=== PATIENT | female | born 1945 | race Caucasian/White ===

== ENCOUNTER 2020-08-15 08:09 | Inpatient (IN) | payer MEDICARE ==
[~2020-08-15] VITALS: Ht 167.6 cm; Wt 86.6 kg
[2020-08-15] VITALS (15 sets, daily range): BP systolic 97–131; BP diastolic 49–82
[~2020-08-15 08:09] MED LIST: AMLO2.5T4 PO; ASPI-1169 PO; AZEL6DRO5 EACHEYE; BACL10TA PO; BENA40TA8 PO; BRIN10DR EACHEYE; DIPH25CA51 PO; DOCU-270 PO; FAMO40TA7 PO; GABA-532 PO; GAMMAGARD IV; LATA2.5D15 EACHEYE; LEVO500T23 PO; MELO-107 PO; METO25TA4 PO; OXYC-128 PO; SENN-261 PO; TEMA15CA PO; TIMO10DR19 EACHEYE; TRAM50TA2 PO
--- NOTE | 2020-08-15 08:15 | NUR ---
PT MIKAEL, FROM [facility] C/O SOB, UPON ARRIVAL, 95% ON 15LPM VIA NRB. IV ACCESS STARTED. BLOOD DRAW DONE. URINE COLLECTED. SENT TO LAB
[2020-08-15 08:27] LABS: ABG BASE EXCESS 7.7 mmol/L; ABG OXYGEN SATURATION 85.7 % (92.0-98.5); ABG PCO2 53.1 mmHg (35.0-45.0); ABG PH 7.421 (7.350-7.450); ABG PO2 52.4 mmHg (75.0-100.0); AaDO2 607.5 mmHg; COHb 1.4 % (0.5-1.5); MetHb 0.3 % (0.0-1.5); O2Hb 84.2 % (94.0-97.0); SITE, ABG Right Radial; VENT MODE, BG NB 100%
[2020-08-15] MEDS ORDERED: ALBUTEROL FS 2.5 MG/3 ML VIAL.NEB ONE (08:30)
[2020-08-15] MEDS ORDERED: IPRATROPIUM NEB FS 0.5 MG/2.5 ML AMPUL.NEB ONE (08:30)
[2020-08-15] MEDS ORDERED: methylPREDNISolone SOD SUCC 125 MG/2ML VIAL ONE (08:46)
[2020-08-15] MEDS ORDERED: LORAZEPAM INJ 2 MG/ML VIAL ONE ×2 (08:47→11:49)
[2020-08-15 08:54] LABS: BASOPHILS % (AUTO) 0.1 % (0.0-2.0); HEMATOCRIT 39 % (33-45); HEMOGLOBIN 12.9 g/dL (11.5-14.8); LYMPHOCYTES # (AUTO) 0.7 /CMM (0.8-4.8); LYMPHOCYTES % (AUTO) 7.3 % (20.0-44.0); MEAN CORPUSCULAR HGB CONC 33 g/dl (31.0-36.0); MEAN CORPUSCULAR VOLUME 95 fL (82-100); MONOCYTES # (AUTO) 0.6 /CMM (0.1-1.30); MONOCYTES % (AUTO) 6.2 % (2.0-12.0); NEUTROPHILS # (AUTO) 8.5 /CMM (1.8-8.9); NEUTROPHILS % (AUTO) 86.4 % (43.0-81.0); PLATELET COUNT (AUTO) 217 /CMM (150-450); RED BLOOD CELL COUNT(AUTO) 4.06 MIL/uL (4.0-5.2); WHITE BLOOD COUNT (AUTO) 9.8 K/uL (4.3-11.0)
--- NOTE | 2020-08-15 08:55 | NUR ---
DILCIA MALONEY. WAITING FOR CALL BACK.
[2020-08-15] MEDS ORDERED: LORAZEPAM INJ 2 MG/ML VIAL IV ONE ×2 (09:00→12:00)
[2020-08-15] MEDS ORDERED: methylPREDNISolone SOD SUCC 125 MG/2ML VIAL IV ONE (09:00)
[2020-08-15] MEDS ORDERED: IPRATROPIUM NEB FS 0.5 MG/2.5 ML AMPUL.NEB NEB ONE (09:00)
[2020-08-15] MEDS ORDERED: ALBUTEROL FS 2.5 MG/3 ML VIAL.NEB NEB ONE (09:00)
[2020-08-15 09:31] LABS: BILIRUBIN,URINE NEGATIVE (NEGATIVE); COLOR,URINE YELLOW (YELLOW); LEUKOCYTE ESTERASE ,URINE SMALL (NEGATIVE); NITRITE, URINE NEGATIVE (NEGATIVE); PROTEIN,URINE NEGATIVE (NEGATIVE); UGLUCOSE NEGATIVE (NEGATIVE); UROBILINOGEN,URINE 0.2 EU/dL (0.2)
[2020-08-15] MEDS ORDERED: BISA10SU11 RC (09:32)
[2020-08-15] MEDS ORDERED: LACT10SO PO (09:32)
[2020-08-15] MEDS ORDERED: THIA100T88 PO (09:32)
[2020-08-15] MEDS ORDERED: DICY10CA13 PO (09:32)
[2020-08-15] MEDS ORDERED: MAGN400T26 PO (09:32)
[2020-08-15] MEDS ORDERED: METO25TA6 PO (09:32)
[2020-08-15] MEDS ORDERED: VITA1TAB56 PO (09:32)
[2020-08-15] MEDS ORDERED: NA P133E RC (09:32)
[2020-08-15] MEDS ORDERED: ACET-868 PO (09:32)
[2020-08-15] MEDS ORDERED: MELA3TAB41 PO (09:32)
[2020-08-15] MEDS ORDERED: CLON0.1T PO (09:32)
[2020-08-15] MEDS ORDERED: FOLI0.4T2 PO (09:32)
[2020-08-15] MEDS ORDERED: MAGN400O6 PO (09:32)
[2020-08-15] MEDS ORDERED: POTA20PA3 PO (09:32)
[2020-08-15] MEDS ORDERED: LEVE500T9 PO (09:32)
[2020-08-15] MEDS ORDERED: AMIN30LI2 PO (09:32)
[2020-08-15] MEDS ORDERED: POLY17PO4 PO (09:32)
[2020-08-15] MEDS ORDERED: APIX5TAB PO (09:32)
[2020-08-15] MEDS ORDERED: [UNRECOGNIZED DRUG - CODE] TD (09:32)
[2020-08-15] MEDS ORDERED: MULT-447 PO (09:32)
[2020-08-15] MEDS ORDERED: ASCO-352 PO (09:32)
[2020-08-15] MEDS ORDERED: DILT30TA14 PO (09:32)
[2020-08-15] MEDS ORDERED: ZINC1CAP2 PO (09:32)
[2020-08-15] MEDS ORDERED: POLY15DR40 EACHEYE (09:32)
[2020-08-15] MEDS ORDERED: BUDE10.2 IH (09:32)
[2020-08-15] MEDS ORDERED: LANS30CA56 PO (09:32)
[2020-08-15] MEDS ORDERED: PRED10TA23 PO (09:35)
[2020-08-15 09:44] LABS: D-DIMER 2.1 mg/L(FEU (0.17-0.50)
[2020-08-15 09:53] LABS: CALCIUM, SERUM 10.3 mg/dL (8.5-10.1); CARBON DIOXIDE 38 mmol/L (21-32); CHLORIDE 97 mmol/L (98-107); CREATININE 1.2 mg/dL (0.6-1.3); GLUCOSE 100 mg/dL (74-106); POTASSIUM 3.5 mmol/L (3.5-5.1); SODIUM SERUM 139 mmol/L (136-145); UREA NITROGEN, BLOOD 22 mg/dL (7-18)
[2020-08-15 10:06] LABS: ALANINE AMINOTRANSFERASE 18 U/L (12-78); ALBUMIN 2.5 g/dL (3.4-5.0); ALKALINE PHOSPHATASE 94 U/L (46-116); ASPARTATE AMINOTRANSFERASE 41 U/L (15-37); B-TYPE NATRIURETIC PEPTIDE 5952 PG/ML (0-125); BILIRUBIN,TOTAL 1.2 mg/dL (0.2-1.0); TOTAL PROTEIN, SERUM 8.4 g/dL (6.4-8.2)
--- NOTE | 2020-08-15 10:12 | NUR ---
CALLED [phone] FOR LATEST COVID TEST NO ANSWER.
--- NOTE | 2020-08-15 10:30 | NUR ---
influenza swab done sent to lab
[2020-08-15 10:44] LABS: BACTERIA,URINE Moderate /HPF (None Seen); RBC,URINE 0-3 /HPF (0-2); SQUAMOUS EPITHELIAL CELL,UR Moderate /HPF (None Seen)
[2020-08-15 10:52] LABS: CREATINE KINASE, TOTAL 15 U/L (26-192); FERRITIN 287 ng/mL (8-388)
[2020-08-15] MEDS ORDERED: ACETAMINOPHEN 325 MG TABLET PO PRN ×2 (11:00)
[2020-08-15] MEDS ORDERED: CEFTRIAXONE 1GM BAG (ER ONLY) 1 GM/50 ML PIGGYBACK IV ONE (11:00)
[2020-08-15] MEDS ORDERED: NA PHOS,M-B/NA PHOS,DI-BA 1 EA ENEMA RC PRN (11:00)
[2020-08-15] MEDS ORDERED: CLONIDINE HCL 0.1 MG TABLET PO PRN (11:00)
[2020-08-15] MEDS ORDERED: ZOLPIDEM TARTRATE 5 MG TABLET PO PRN (11:00)
[2020-08-15] MEDS ORDERED: MAGNESIUM HYDROXIDE 30 ML UDC PO PRN ×2 (11:00)
[2020-08-15] MEDS ORDERED: BISACODYL SUPP (10 MG) 10 MG/SUPP.RECT SUPP.RECT RC PRN (11:00)
[2020-08-15] MEDS ORDERED: HYDROCODONE/APAP 5/325MG TABLET PO PRN ×2 (11:00→15:30)
[2020-08-15] MEDS ORDERED: MAG HYDROX/AL HYDROX/SIMETH 30 ML UDC PO PRN (11:00)
[2020-08-15] MEDS ORDERED: CEFTRIAXONE 1 G in IV D5W 50 ML IV ONE (11:00)
[2020-08-15] MEDS ORDERED: BACLOFEN (10 MG) 10 MG TABLET PO PRN (11:00)
[2020-08-15] MEDS ORDERED: AZITHROMYCIN 500 MG in IV D5W 250 ML IV ONE (11:00)
[2020-08-15] MEDS ORDERED: CEFTRIAXONE 2 G in IV D5W 100 ML IV ONE (11:00)
[2020-08-15] MEDS ORDERED: Medication Not On Formulary EA (Melatonin 3 MG) PO PRN (11:00)
[2020-08-15] MEDS ORDERED: ONDANSETRON HCL/PF 4 MG/2 ML VIAL IVP PRN (11:00)
[2020-08-15] MEDS ORDERED: TRAMADOL HCL 50 MG TABLET PO PRN (11:00)
[2020-08-15] MEDS ORDERED: POLYETHYLENE GLYCOL 3350 17 GM POWD.PACK PO PRN (11:00)
[2020-08-15 11:18] LABS: C-REACTIVE PROTEIN 4.5 mg/dL (0.0-0.9)
[2020-08-15] MEDS ORDERED: PROPOFOL 100 ML ONE (12:54)
[2020-08-15] MEDS ORDERED: SUCCINYLCHOLINE CHLORIDE 20 MG/ML VIAL IV ONE ×2 (13:00→15:00)
[2020-08-15] MEDS ORDERED: ETOMIDATE 2 MG/ML VIAL IV ONE ×2 (13:00→15:00)
--- NOTE | 2020-08-15 13:14 | NUR ---
pt prepared for intubation. vs checked. (see vs record). rt, md and primary rn in the room.
--- NOTE | 2020-08-15 13:17 | NUR ---
s/p intubation. md intubated pt successfully. breath sounds auscultated. no abd gurgling.
[2020-08-15] MEDS: PROPOFOL 10MG/ML 50ML 50 ML IV PRN ×3 (13:30→23:31)
[2020-08-15 14:24] LABS: ABG BASE EXCESS 8.9 mmol/L; ABG OXYGEN SATURATION 71.5 % (92.0-98.5); ABG PH 7.411 (7.350-7.450); ABG PO2 39.9 mmHg (75.0-100.0); AaDO2 616.1 mmHg; COHb 1.1 % (0.5-1.5); MetHb 0.3 % (0.0-1.5); O2Hb 70.5 % (94.0-97.0); SITE, ABG Right Radial; VENT MODE, BG HFNC 60L 100%
[2020-08-15] MEDS ORDERED: ETOMIDATE 2 MG/ML VIAL ONE (14:35)
[2020-08-15] MEDS ORDERED: SUCCINYLCHOLINE CHLORIDE 20 MG/ML VIAL ONE (14:35)
[2020-08-15 14:57] LABS: ABG BASE EXCESS 10.9 mmol/L; ABG OXYGEN SATURATION 94.2 % (92.0-98.5); ABG PCO2 52.1 mmHg (35.0-45.0); ABG PO2 74.6 mmHg (75.0-100.0); AaDO2 586.3 mmHg; COHb 0.5 % (0.5-1.5); MetHb 0.4 % (0.0-1.5); O2Hb 93.4 % (94.0-97.0); SITE, ABG Right Radial; VENT MODE, BG AC 20 450 100 +8
--- NOTE | 2020-08-15 15:00 | NUR ---
RT Pt intubated in ER bed 3. Pt intubated via 7.5 ETT @ 23cm lip line. Bilateral breath sounds noted. Pt placed on AC 20, 450, 100%, +8 per Jeremy [place]. ABG done and given to Dr. Luna-no changes were made. No Respiratory distress noted at this time. SX DONE. Alarms are set and audible. Vent plugged into red outlet. Ambu bag at bedside
--- NOTE | 2020-08-15 15:20 | NUR ---
REPORT GIVEN TO SAMIRA MIRANDA AT ICU. PT TO GO TO 261
[2020-08-15] MEDS ORDERED: POLYVINYL ALCOHOL 15 ML BOTTLE EACHEYE PRN (15:30)
[2020-08-15 15:38] LABS: BILIRUBIN,DIRECT 0.5 mg/dL (0.0-0.2)
--- NOTE | 2020-08-15 15:42 | NUR ---
pt transferred to icu
[2020-08-15] MEDS ORDERED: REMDESIVIR (CHARGED) 200 MG, *LOADING DOSE 1 EA in IV NS 0.9% 210 ML IV ONE (16:00)
--- NOTE | 2020-08-15 16:00 | NUR ---
ICU/RN PT IS ADMITTED FROM ER,FROM SNF.INTUBATED ON THE VENT AC MODE,FIO2-100%,PEEP-8,SAT O2-92%,V/S STABLE,AFEBRILE.A-FIB ON MONITOR.SEDATED ON DIPRIVAN.REFERRAL IV.F/C DRAINING WITH ALISA URINE.PT HAS MULTIPLY WOUNDS ,BRUISES ,SKIN TEARS ALL OVER THE BODY.PHOTO TAKEN AND PLACED IN THE CHART.WOUND CONSULT ORDERED,[facility] ORDERED.PT IS OBESE.OG TUBE INSERTED ORDERED.SUCTION PROVIDED.PT HAS BLOODY SECRETION.REPOSITION FOR COMFORT.PT IS COVID POSITIVE.
[2020-08-15] MEDS ORDERED: IV D5/ 0.9% NACL 1,000 ML IV PRN (16:30)
[2020-08-15] MEDS ORDERED: DOCUSATE SODIUM 100 MG CAPSULE PO SCH (17:00)
[2020-08-15] MEDS ORDERED: METOPROLOL TARTRATE 25 MG TABLET PO SCH (17:00)
[2020-08-15] MEDS ORDERED: APIXABAN 5 MG TABLET PO SCH (17:00)
[2020-08-15] MEDS ORDERED: SENNOSIDES 8.6 MG TABLET PO SCH (17:00)
[2020-08-15] MEDS ORDERED: MAGNESIUM OXIDE 400 MG TABLET PO SCH (17:00)
[2020-08-15] MEDS ORDERED: Medication Not On Formulary EA (Levetiracetam (Keppra) 500 MG) PO SCH (17:00)
[2020-08-15] MEDS ORDERED: PROSOURCE / PROSTAT (PYXIS) 30 ML UDC PO SCH (17:00)
[2020-08-15] MEDS ORDERED: LACTULOSE 10 G/15 ML UDC (PYXIS) PO SCH (17:00)
[2020-08-15] MEDS ORDERED: Medication Not On Formulary EA (Budesonide/Formoterol Fumarate (Symbicort 160-4.5 Mcg In IH SCH (17:00)
[2020-08-15] MEDS ORDERED: POTASSIUM CHLORIDE 20 MEQ POWDER PACKET PO SCH (17:00)
[2020-08-15] MEDS: Z GUARD REMEDY 2 OZ OINT TP PRN (17:32)
[2020-08-15] MEDS: DICYCLOMINE HCL 10 MG CAPSULE PO SCH ×2 (17:42→17:45)
[2020-08-15] MEDS: GABAPENTIN 100 MG CAPSULE PO SCH ×2 (17:42→17:45)
[2020-08-15] MEDS: DILTIAZEM HCL 30 MG TABLET PO SCH ×3 (17:43→23:44)
[2020-08-15] MEDS: TIMOLOL 0.25% SOL OPHTH 10 ML BOTTLE EACHEYE SCH (17:45)
--- NOTE | 2020-08-15 18:00 | NUR ---
ICU/RN NEW RIGHT SUBCLAVIAN TLC PLACED BY ROSENDA WARE DNP. OK TO USE IT. DUE MEDS ARE GIVEN ORDERED.CONTINUE TO MONITOR.
--- NOTE | 2020-08-15 19:47 | NUR ---
PT REC'D ORALLY INTUBATED VIA ETT 7.5 SECURED @ 23 CM LIP [facility] WITH THE SETTINGS OF AC 20, 450,100%,PEEP 8. NO RESPIRATORY DISTRESS NOTED AT THIS TIME. SX DONE. ALARMS ARE SET AND AUDIBLE. VENT PLUGGED INTO RED OUTLET. AMBU BAG@ BEDSIDE. WILL CONTINUE TO MONITOR T/O THE SHIFT.
[2020-08-15] MEDS ORDERED: CEFEPIME 2 GM in IV D5W 100 ML IV SCH (20:00)
[2020-08-15] MEDS: MEROPENEM 1 G in IV NS 0.9% 100 ML IV SCH (20:00)
--- NOTE | 2020-08-15 20:00 | NUR ---
Received patient sedated on Diprivan gtt at 15 mcg via R SCV TLC and site intact.Patient orally intubated to mechanical vent with prescribed settings tolerating well.Dx: Acute Respiratory Failure. VSS.AFIB controlled.OGT placement verified by auscultation and aspiration then clamped.Patient NPO except meds.FC to gravity drainage.Turned and repositioned.Continue monitoring.
[2020-08-15] MEDS ORDERED: LEVETIRACETAM (250 MG) 250 MG TABLET PO SCH (21:00)
[2020-08-15] MEDS: LATANOPROST EYE DROP 0.005% 2.5 ML BOTTLE EACHEYE SCH (21:01)
[2020-08-16] VITALS (31 sets, daily range): BP systolic 98–150; BP diastolic 50–92
--- NOTE | 2020-08-16 | NUR ---
Incontinent of large loose brown stools.Perineal care and bed bath rendered.Complete linens changed. Turned and repositioned.Patient agitated Diprivan gtt titrated per protocol.
[2020-08-16] MEDS: PROPOFOL 10MG/ML 50ML 50 ML IV PRN ×2 (03:17→04:20)
[2020-08-16] MEDS: MEROPENEM 1 G in IV NS 0.9% 100 ML IV SCH ×3 (04:00→20:00)
[2020-08-16 04:56] LABS: BASOPHILS % (AUTO) 0.1 % (0.0-2.0); HEMATOCRIT 31 % (33-45); HEMOGLOBIN 10.2 g/dL (11.5-14.8); LYMPHOCYTES # (AUTO) 0.4 /CMM (0.8-4.8); LYMPHOCYTES % (AUTO) 9.9 % (20.0-44.0); MEAN CORPUSCULAR HGB CONC 33 g/dl (31.0-36.0); MEAN CORPUSCULAR VOLUME 95 fL (82-100); MONOCYTES # (AUTO) 0.4 /CMM (0.1-1.30); MONOCYTES % (AUTO) 8.8 % (2.0-12.0); NEUTROPHILS # (AUTO) 3.2 /CMM (1.8-8.9); NEUTROPHILS % (AUTO) 81.2 % (43.0-81.0); PLATELET COUNT (AUTO) 142 /CMM (150-450); RED BLOOD CELL COUNT(AUTO) 3.23 MIL/uL (4.0-5.2)
[2020-08-16 05:21] LABS: ALBUMIN 1.8 g/dL (3.4-5.0); BILIRUBIN,DIRECT 0.4 mg/dL (0.0-0.2); BILIRUBIN,TOTAL 0.7 mg/dL (0.2-1.0); CALCIUM, SERUM 9.2 mg/dL (8.5-10.1); MAGNESIUM 1.6 mg/dL (1.8-2.4); PHOSPHORUS 2.4 mg/dL (2.5-4.9); TOTAL PROTEIN, SERUM 6.1 g/dL (6.4-8.2)
[2020-08-16] MEDS: DILTIAZEM HCL 30 MG TABLET PO SCH (05:50)
--- NOTE | 2020-08-16 06:15 | NUR ---
Convalescent Plasma 1 unit transfused without adverse reaction.Patient resting .VSS.AFIB controlled. All due medications administered.Turned and repositioned.BMx2.Kept clean and dry.All needs met.
[2020-08-16] MEDS ORDERED: PANTOPRAZOLE 40 MG TABLET.DR PO SCH (07:30)
[2020-08-16] MEDS ORDERED: Medication Not On Formulary EA (Lansoprazole 30 MG) PO SCH (07:30)
[2020-08-16] MEDS: PROPOFOL 100 ML IV PRN ×4 (07:30→21:24)
[2020-08-16] MEDS ORDERED: PHARMACY TO CHANGE PO MEDS TO GT/NG XX PRN (08:00)
[2020-08-16] MEDS ORDERED: ZOLPIDEM TARTRATE 5 MG TABLET GT PRN (08:25)
[2020-08-16] MEDS ORDERED: BACLOFEN (10 MG) 10 MG TABLET GT PRN (08:30)
[2020-08-16] MEDS ORDERED: MAG HYDROX/AL HYDROX/SIMETH 30 ML UDC GT PRN (08:30)
[2020-08-16] MEDS ORDERED: POLYETHYLENE GLYCOL 3350 17 GM POWD.PACK GT PRN (08:31)
[2020-08-16] MEDS ORDERED: MAGNESIUM HYDROXIDE 30 ML UDC GT PRN (08:33)
[2020-08-16] MEDS ORDERED: ACETAMINOPHEN 650 MG/20.3 ML UDC GT PRN (08:37)
[2020-08-16] MEDS ORDERED: TRAMADOL HCL 50 MG TABLET GT PRN (08:38)
[2020-08-16] MEDS ORDERED: CLONIDINE HCL 0.1 MG TABLET GT PRN (08:39)
[2020-08-16] MEDS: SENNOSIDES 8.6 MG TABLET GT SCH ×2 (08:42→16:56)
[2020-08-16] MEDS: DOCUSATE SODIUM LIQ 100 MG/10 ML UDC GT SCH ×2 (08:42→16:55)
[2020-08-16] MEDS ORDERED: Medication Not On Formulary EA (Multivitamin With Minerals (One Daily Complete) 1 EACH) PO SCH (09:00)
[2020-08-16] MEDS ORDERED: MULTIVIT W/MINERALS 1 TAB TABLET PO SCH (09:00)
[2020-08-16] MEDS ORDERED: ASCORBIC ACID 500 MG TABLET PO SCH (09:00)
[2020-08-16] MEDS ORDERED: THIAMINE HCL 100 MG TABLET PO SCH (09:00)
[2020-08-16] MEDS ORDERED: VITAMIN B COMP W-C 1 TAB TABLET PO SCH (09:00)
[2020-08-16] MEDS: DICYCLOMINE HCL 10 MG/5 ML UDC GT SCH ×3 (09:00→17:48)
[2020-08-16] MEDS ORDERED: FAMOTIDINE 40 MG TABLET PO SCH (09:00)
[2020-08-16] MEDS ORDERED: LACTULOSE 10 G/15 ML UDC (PYXIS) GT PRN (09:00)
[2020-08-16] MEDS ORDERED: Medication Not On Formulary EA (Vitamin B Complex (B Complex) 1 EACH) PO SCH (09:00)
[2020-08-16] MEDS ORDERED: ZINC SULFATE 220 MG CAPSULE PO SCH (09:00)
[2020-08-16] MEDS: DEXAMETHASONE SOD PHOSPHATE 10 MG/ML VIAL IV SCH (09:17)
[2020-08-16] MEDS: LACTULOSE 10 G/15 ML UDC (PYXIS) GT SCH ×2 (09:17→17:47)
[2020-08-16] MEDS: TIMOLOL 0.25% SOL OPHTH 10 ML BOTTLE EACHEYE SCH ×2 (09:17→17:47)
[2020-08-16] MEDS: ZINC SULFATE 220 MG CAPSULE GT SCH (09:17)
[2020-08-16] MEDS: PROSOURCE / PROSTAT (PYXIS) 30 ML UDC GT SCH ×2 (09:17→17:52)
[2020-08-16] MEDS: POTASSIUM CHLORIDE 20 MEQ POWDER PACKET GT SCH ×2 (09:18→17:49)
[2020-08-16] MEDS: PANTOPRAZOLE 40 MG/PACK PACK GT SCH (09:18)
[2020-08-16] MEDS: LEVETIRACETAM SOL (5 ML) 100 MG/ML UDC GT SCH ×2 (09:18→20:49)
[2020-08-16] MEDS: GABAPENTIN 100 MG CAPSULE GT SCH ×3 (09:19→17:51)
[2020-08-16] MEDS: FOLIC ACID 1 MG TABLET GT SCH (09:20)
[2020-08-16] MEDS: APIXABAN 5 MG TABLET GT SCH ×2 (09:22→17:53)
[2020-08-16] MEDS: METOPROLOL TARTRATE 25 MG TABLET GT SCH ×2 (09:23→17:50)
[2020-08-16] MEDS: MULTIVIT W/MINERALS 1 TAB TABLET GT SCH (09:24)
[2020-08-16] MEDS: THIAMINE HCL 100 MG TABLET GT SCH (09:24)
[2020-08-16] MEDS: ASCORBIC ACID 500 MG TABLET GT SCH (09:24)
[2020-08-16] MEDS: VITAMIN B COMP W-C 1 TAB TABLET GT SCH (09:25)
[2020-08-16] MEDS: MAGNESIUM OXIDE 400 MG TABLET GT SCH ×2 (09:25→17:49)
[2020-08-16 09:39] LABS: ABG BASE EXCESS 8.9 mmol/L; ABG OXYGEN SATURATION 89.5 % (92.0-98.5); ABG PCO2 42.2 mmHg (35.0-45.0); ABG PH 7.509 (7.350-7.450); ABG PO2 55.7 mmHg (75.0-100.0); AaDO2 542.8 mmHg; MetHb 0.3 % (0.0-1.5); O2Hb 88.3 % (94.0-97.0); PEEP,BG 8 cm H2O; SITE, ABG Right Radial; VENT MODE, BG AC 90%; VT, ABG 450 mL
[2020-08-16] MEDS ORDERED: Magnesium 1GM/D5W 100ML PREMIX 100 ML IV SCH (10:00)
[2020-08-16] MEDS ORDERED: POTASSIUM CL. PREMIX PERIPHER. 50 ML IV SCH (10:30)
[2020-08-16] MEDS: DILTIAZEM HCL 30 MG TABLET GT SCH ×2 (12:16→17:50)
[2020-08-16] MEDS ORDERED: NEUTRA PHOS 1 POWD.PACKET GT ONE (14:00)
[2020-08-16] MEDS ORDERED: FUROSEMIDE 40 MG/4 ML VIAL IV ONE (15:30)
[2020-08-16] MEDS: REMDESIVIR (CHARGED) 100 MG in IV NS 0.9% 230 ML IV SCH (15:43)
--- NOTE | 2020-08-16 18:51 | NUR ---
END OF SHIFT NOTE: VENT CHANGES THIS SHIFT. CURRENT SETTINGS AC 20, TV450, P12, 80%. IVF DC'D TODAY. CVP STARTED, AVERAGED 13-15 THIS SHIFT. LASIX 40MG GIVEN PER MD ORDERS. TOTAL UOP THIS SHIFT WAS 1100 ML. NO SEDATION VACATION TODAY PER MD ORDERS. PT CHECKED ON HOURLY AND PRN BY NURSING STAFF.
--- NOTE | 2020-08-16 20:14 | NUR ---
PT REC'D ORALLY INTUBATED VIA ETT 7.5 SECURED @ 23 CM [facility] WITH THE SETTINGS OF AC 20, 450,80%,PEEP 12. NO RESPIRATORY DISTRESS NOTED AT THIS TIME. SX DONE. ALARMS ARE SET AND AUDIBLE. VENT PLUGGED INTO RED OUTLET. AMBU BAG@ BEDSIDE. WILL CONTINUE TO MONITOR T/O THE SHIFT.
[2020-08-16] MEDS ORDERED: VANCOMYCIN 1.5 GM in IV D5W 500 ML IV ONE (21:00)
[2020-08-16] MEDS: MUPIROCIN OINT 2% 22 GM TUBE NS SCH (21:09)
[2020-08-16] MEDS: LATANOPROST EYE DROP 0.005% 2.5 ML BOTTLE EACHEYE SCH (21:10)
[2020-08-16] MEDS ORDERED: VANCOMYCIN 1 GM VIAL ONE (21:13)
--- NOTE | 2020-08-16 21:30 | NUR ---
1929 Received patient non verbal maintain on full vent support and sedated on Diprivan gtt. Dx.Acute Hypoxic Respiratory Failure,Covid 19 + PNA,UTI. Hx COPD,HTN,AFIB,Morbid Obesity, GBS,Hepatic Encephalopathy.No distress noted.VSS.AFIB controlled.OGT in place verified by auscultation and aspiration.HOB elevated.FC to gravity drainage.Turned and repositioned. Continue monitoring.
[2020-08-16] MEDS ORDERED: FAMOTIDINE (20 MG) 20 MG TABLET PO SCH (22:00)
[2020-08-17] VITALS (24 sets, daily range): BP systolic 84–114; BP diastolic 31–72
[2020-08-17] MEDS: DILTIAZEM HCL 30 MG TABLET GT SCH ×4 (00:14→17:57)
--- NOTE | 2020-08-17 02:00 | NUR ---
Patient remains sedated.No distress noted.BM x1 .Hygienic measures done.Turned and repositioned.
[2020-08-17] MEDS: PROPOFOL 100 ML IV PRN ×5 (03:17→21:22)
[2020-08-17] MEDS: MEROPENEM 1 G in IV NS 0.9% 100 ML IV SCH ×3 (04:00→20:30)
[2020-08-17 04:59] LABS: BASOPHILS % (AUTO) 0.2 % (0.0-2.0); HEMATOCRIT 31 % (33-45); HEMOGLOBIN 10.3 g/dL (11.5-14.8); LYMPHOCYTES # (AUTO) 0.4 /CMM (0.8-4.8); LYMPHOCYTES % (AUTO) 8.2 % (20.0-44.0); MEAN CORPUSCULAR HGB CONC 33 g/dl (31.0-36.0); MEAN CORPUSCULAR VOLUME 95 fL (82-100); MONOCYTES # (AUTO) 0.3 /CMM (0.1-1.30); MONOCYTES % (AUTO) 6.5 % (2.0-12.0); NEUTROPHILS # (AUTO) 4.2 /CMM (1.8-8.9); NEUTROPHILS % (AUTO) 85.1 % (43.0-81.0); PLATELET COUNT (AUTO) 151 /CMM (150-450); RED BLOOD CELL COUNT(AUTO) 3.26 MIL/uL (4.0-5.2); WHITE BLOOD COUNT (AUTO) 4.9 K/uL (4.3-11.0)
[2020-08-17 05:17] LABS: ALBUMIN 1.8 g/dL (3.4-5.0); ALKALINE PHOSPHATASE 69 U/L (46-116); ASPARTATE AMINOTRANSFERASE 33 U/L (15-37); BILIRUBIN,DIRECT 0.4 mg/dL (0.0-0.2); BILIRUBIN,TOTAL 0.8 mg/dL (0.2-1.0); CALCIUM, SERUM 9.2 mg/dL (8.5-10.1); CARBON DIOXIDE 36 mmol/L (21-32); CHLORIDE 103 mmol/L (98-107); GLUCOSE 111 mg/dL (74-106); MAGNESIUM 1.8 mg/dL (1.8-2.4); PHOSPHORUS 2.6 mg/dL (2.5-4.9); POTASSIUM 3.5 mmol/L (3.5-5.1); SODIUM SERUM 141 mmol/L (136-145); UREA NITROGEN, BLOOD 24 mg/dL (7-18)
[2020-08-17 05:29] LABS: ALANINE AMINOTRANSFERASE 12 U/L (12-78)
--- NOTE | 2020-08-17 06:30 | NUR ---
Patient remains intubated and sedated.VSS AFIB.All due medications administered.No distress noted. Diprivan gtt infusing at 25 mcg.Turned and repositioned.All needs met.
[2020-08-17] MEDS: DOCUSATE SODIUM LIQ 100 MG/10 ML UDC GT SCH ×2 (08:10→17:00)
[2020-08-17] MEDS: SENNOSIDES 8.6 MG TABLET GT SCH ×2 (08:12→17:00)
--- NOTE | 2020-08-17 08:50 | NUR ---
WOUND CARE CONSULT: REVIEWED CHART, NURSING DOCUMENTATION AND PHOTOS WHICH INDICATE SACRAL SCARRING, REDNESS/RASH TO BREASTFOLDS, PERINEAL AND GROIN FOLDS WELL SKIN TEARS TO ARMS, PRESENT ON ADMISSION. DR RAMOS NOTIFIED OF SURGICAL CONSULT REQUEST. PT IS ON JALEN ISOFLEX LOW AIRLOSS BED. RECOMMENDATIONS MADE FOR SKIN PROTECTION. DISCUSSED WITH NURSING STAFF. MD IN AGREEMENT WITH PLAN OF CARE.
[2020-08-17] MEDS: METOPROLOL TARTRATE 25 MG TABLET GT SCH ×2 (09:00→17:00)
[2020-08-17 10:10] LABS: ABG BASE EXCESS 6.8 mmol/L; ABG OXYGEN SATURATION 89.7 % (92.0-98.5); ABG PCO2 34.9 mmHg (35.0-45.0); ABG PH 7.544 (7.350-7.450); ABG PO2 52.8 mmHg (75.0-100.0); AaDO2 336.6 mmHg; COHb 0.7 % (0.5-1.5); MetHb 0.1 % (0.0-1.5); PEEP,BG 12 cm H2O; SITE, ABG Right Radial; VENT MODE, BG AC 20; VT, ABG 450 mL
--- NOTE | 2020-08-17 11:00 | NUR ---
AM MEDS GIVEN LATE D/T RN BUSY WITH A DIFFERENT PATIENT. PT STABLE. PT CHECKED ON HOURLY AND PRN BY NURSING STAFF.
[2020-08-17] MEDS: THIAMINE HCL 100 MG TABLET GT SCH (11:07)
[2020-08-17] MEDS: MAGNESIUM OXIDE 400 MG TABLET GT SCH ×2 (11:07→17:58)
[2020-08-17] MEDS: ASCORBIC ACID 500 MG TABLET GT SCH (11:07)
[2020-08-17] MEDS: VITAMIN B COMP W-C 1 TAB TABLET GT SCH (11:07)
[2020-08-17] MEDS: MULTIVIT W/MINERALS 1 TAB TABLET GT SCH (11:07)
[2020-08-17] MEDS: FOLIC ACID 1 MG TABLET GT SCH (11:08)
[2020-08-17] MEDS: APIXABAN 5 MG TABLET GT SCH ×2 (11:09→18:00)
[2020-08-17] MEDS: GABAPENTIN 100 MG CAPSULE GT SCH ×3 (11:10→17:57)
[2020-08-17] MEDS: DICYCLOMINE HCL 10 MG/5 ML UDC GT SCH ×3 (11:10→17:57)
[2020-08-17] MEDS: DEXAMETHASONE SOD PHOSPHATE 10 MG/ML VIAL IV SCH (11:10)
[2020-08-17] MEDS: LEVETIRACETAM SOL (5 ML) 100 MG/ML UDC GT SCH ×2 (11:12→20:30)
[2020-08-17] MEDS: ZINC SULFATE 220 MG CAPSULE GT SCH (11:12)
[2020-08-17] MEDS: POTASSIUM CHLORIDE 20 MEQ POWDER PACKET GT SCH ×2 (11:12→17:57)
[2020-08-17] MEDS: TIMOLOL 0.25% SOL OPHTH 10 ML BOTTLE EACHEYE SCH ×2 (11:13→17:56)
[2020-08-17] MEDS: LACTULOSE 10 G/15 ML UDC (PYXIS) GT SCH ×2 (11:13→17:56)
[2020-08-17] MEDS: MUPIROCIN OINT 2% 22 GM TUBE NS SCH ×2 (11:14→20:37)
[2020-08-17] MEDS: PROSOURCE / PROSTAT (PYXIS) 30 ML UDC GT SCH ×2 (11:20→17:59)
[2020-08-17] MEDS: VANCOMYCIN 1.25 GM in IV D5W 250 ML IV SCH (14:15)
[2020-08-17] MEDS: REMDESIVIR (CHARGED) 100 MG in IV NS 0.9% 230 ML IV SCH (16:21)
--- NOTE | 2020-08-17 19:30 | NUR ---
END OF SHIFT NOTE: NO SIGNIFICANT EVENTS THIS SHIFT. NO SEDATION VACATION PER MD ORDERS. PROPOFOL INFUSING PER MD ORDERS. 2 BM THIS SHIFT. PT CHECKED ON HOURLY AND PRN BY NURSING STAFF.
[2020-08-17] MEDS: LATANOPROST EYE DROP 0.005% 2.5 ML BOTTLE EACHEYE SCH (22:54)
[2020-08-18] VITALS (25 sets, daily range): BP systolic 69–113; BP diastolic 44–75
[2020-08-18] MEDS: DILTIAZEM HCL 30 MG TABLET GT SCH ×4 (01:02→18:00)
[2020-08-18] MEDS: PROPOFOL 100 ML IV PRN ×5 (03:06→22:19)
--- NOTE | 2020-08-18 03:22 | NUR ---
RT NOTE Pt received intubated and on [facility] vent w ordered settings. Vent is plugged into red outlet. Alarms are set and audible w bmv @ hob. Airway is patent and secure. No resp distress noted t/o shift. Will continue to monitor. Addendum: 08/18/20 at 0322 by BLAISE MARTINEZ RT Amended: Links added.
[2020-08-18] MEDS: MEROPENEM 1 G in IV NS 0.9% 100 ML IV SCH ×3 (04:55→21:05)
[2020-08-18 05:36] LABS: BASOPHILS % (AUTO) 0.2 % (0.0-2.0); HEMATOCRIT 33 % (33-45); HEMOGLOBIN 10.8 g/dL (11.5-14.8); LYMPHOCYTES # (AUTO) 0.5 /CMM (0.8-4.8); LYMPHOCYTES % (AUTO) 10.4 % (20.0-44.0); MEAN CORPUSCULAR HGB CONC 33 g/dl (31.0-36.0); MEAN CORPUSCULAR VOLUME 95 fL (82-100); MONOCYTES # (AUTO) 0.4 /CMM (0.1-1.30); MONOCYTES % (AUTO) 8.2 % (2.0-12.0); NEUTROPHILS # (AUTO) 4.2 /CMM (1.8-8.9); NEUTROPHILS % (AUTO) 81.2 % (43.0-81.0); PLATELET COUNT (AUTO) 170 /CMM (150-450); RED BLOOD CELL COUNT(AUTO) 3.41 MIL/uL (4.0-5.2); WHITE BLOOD COUNT (AUTO) 5.2 K/uL (4.3-11.0)
[2020-08-18 06:02] LABS: ALBUMIN 1.6 g/dL (3.4-5.0); BILIRUBIN,DIRECT 0.4 mg/dL (0.0-0.2); BILIRUBIN,TOTAL 0.7 mg/dL (0.2-1.0); CALCIUM, SERUM 9.7 mg/dL (8.5-10.1); CREATININE 0.9 mg/dL (0.6-1.3); POTASSIUM 3.9 mmol/L (3.5-5.1); TOTAL PROTEIN, SERUM 5.8 g/dL (6.4-8.2)
--- NOTE | 2020-08-18 07:30 | NUR ---
REPLANTING MACHINE OPERATOR: NO SIGNIFICANT OWEN DURING THE SHIFT. TOLERATED VENT SETTINGS ORDERED WT NO ACUTE DISTRESS. NO EVIDENCE OF DISCOMFORT. AFEBRILE. A. FIB CONTROLLED ON BUFFET RUNNER. ON DIPRIVAN DRIP A 25MCG/KG/MIN. BILAT. SOFT WRIST RESTRAINTS FOR EPISODES OF TRYING TO REACH FOR TUBINGS. SKIN AND CIRCULATION WNL. OBTAINED RECTAL TUBE ORDER FROM EDUCATIONAL TECHNOLOGY COORDINATOR MOUSE BREEDER FOR EPISODES OF DIARRHEA FROM LACTULOSE MED. F/C PATENT AND INTACT DRAINING YELLOW URINE TO GRAVITY. HOB AT 35 DEGREES. BED IN LOWEST POSITION AND LOCKED, BED ALARM ACTIVATED. SIDE RAILS UP X2. ALL NEEDS MET.
[2020-08-18 08:26] LABS: ABG BASE EXCESS 4.3 mmol/L; ABG PCO2 38.2 mmHg (35.0-45.0); ABG PH 7.482 (7.350-7.450); ABG PO2 73.5 mmHg (75.0-100.0); AaDO2 312.3 mmHg; COHb 0.3 % (0.5-1.5); MetHb 0.2 % (0.0-1.5); O2Hb 94.5 % (94.0-97.0); SITE, ABG Right Radial; VENT MODE, BG AC 16 450 60% +14
[2020-08-18] MEDS: LEVETIRACETAM SOL (5 ML) 100 MG/ML UDC GT SCH ×2 (08:30→21:05)
[2020-08-18] MEDS: DOCUSATE SODIUM LIQ 100 MG/10 ML UDC GT SCH ×2 (08:30→18:09)
[2020-08-18] MEDS: LACTULOSE 10 G/15 ML UDC (PYXIS) GT SCH ×2 (08:30→18:09)
[2020-08-18] MEDS: DEXAMETHASONE SOD PHOSPHATE 10 MG/ML VIAL IV SCH (08:30)
[2020-08-18] MEDS: SENNOSIDES 8.6 MG TABLET GT SCH ×2 (08:31→18:11)
[2020-08-18] MEDS: POTASSIUM CHLORIDE 20 MEQ POWDER PACKET GT SCH ×2 (08:31→18:11)
[2020-08-18] MEDS: MAGNESIUM OXIDE 400 MG TABLET GT SCH ×2 (08:31→18:11)
[2020-08-18] MEDS: THIAMINE HCL 100 MG TABLET GT SCH (08:31)
[2020-08-18] MEDS: GABAPENTIN 100 MG CAPSULE GT SCH ×3 (08:31→18:11)
[2020-08-18] MEDS: FOLIC ACID 1 MG TABLET GT SCH (08:31)
[2020-08-18] MEDS: PANTOPRAZOLE 40 MG/PACK PACK GT SCH (08:31)
[2020-08-18] MEDS: MULTIVIT W/MINERALS 1 TAB TABLET GT SCH (08:32)
[2020-08-18] MEDS: ASCORBIC ACID 500 MG TABLET GT SCH (08:32)
[2020-08-18] MEDS: APIXABAN 5 MG TABLET GT SCH ×2 (08:35→22:41)
[2020-08-18] MEDS: DICYCLOMINE HCL 10 MG/5 ML UDC GT SCH ×3 (08:36→18:09)
[2020-08-18] MEDS: PROSOURCE / PROSTAT (PYXIS) 30 ML UDC GT SCH ×2 (08:36→18:11)
[2020-08-18] MEDS: VITAMIN B COMP W-C 1 TAB TABLET GT SCH (08:45)
[2020-08-18] MEDS: ZINC SULFATE 220 MG CAPSULE GT SCH (08:45)
[2020-08-18] MEDS: METOPROLOL TARTRATE 25 MG TABLET GT SCH ×2 (09:00→17:00)
[2020-08-18] MEDS ORDERED: HYDROCORTISONE SOD SUCCINATE 100 MG/2 ML VIAL IV SCH (09:30)
[2020-08-18] MEDS: MUPIROCIN OINT 2% 22 GM TUBE NS SCH ×2 (09:56→21:12)
[2020-08-18] MEDS: TIMOLOL 0.25% SOL OPHTH 10 ML BOTTLE EACHEYE SCH ×2 (09:57→18:12)
[2020-08-18] MEDS: VANCOMYCIN 1.25 GM in IV D5W 250 ML IV SCH (09:59)
[2020-08-18] MEDS: IV NS 0.9% 250 ML IV PRN (14:45)
[2020-08-18] MEDS: REMDESIVIR (CHARGED) 100 MG in IV NS 0.9% 230 ML IV SCH (15:08)
--- NOTE | 2020-08-18 17:30 | NUR ---
RN NOTES CALLED PHARMACY 2X REGARDING ELIQUIS 5MG, OUT OF STOCK ON OMNICELL. THEY SAID THEY WILL DELIVER IT, WILL F/U.
--- NOTE | 2020-08-18 19:40 | NUR ---
RN NOTES RECEIVED PATIENT ORALLY INTUBATED WTIH ETT 7.5 AND 23 CM AT LIPLINE WITH VENT SETTING AC 16 TV 400 FIO2 60% AND PEEP 14 SEDATED WITH DIPRIVAN. AFIB CONTROLLED. WITH OGT INTACT AND PATENT. IV SITE ON RIGHT SUBCLAVIAN TLC AND LFA G 20 AND LAC G 18 INTACT AND PATENT. THORPE CATH DRAINED WITH YELLOW CLOUDY COLOR URINE. KEPT PT CLEAN AND DRY. TURNED AND REPOSITIONED Q2H AND PT COMFORTABLE.
[2020-08-18] MEDS: LATANOPROST EYE DROP 0.005% 2.5 ML BOTTLE EACHEYE SCH (21:12)
[2020-08-19] VITALS (23 sets, daily range): BP systolic 90–125; BP diastolic 43–72
[2020-08-19] MEDS: DILTIAZEM HCL 30 MG TABLET GT SCH ×4 (00:09→17:02)
[2020-08-19] MEDS: VANCOMYCIN 1.25 GM in IV D5W 250 ML IV SCH ×2 (02:03→22:03)
[2020-08-19] MEDS: PROPOFOL 100 ML IV PRN ×4 (03:01→20:36)
[2020-08-19] MEDS: MEROPENEM 1 G in IV NS 0.9% 100 ML IV SCH ×3 (04:00→21:22)
[2020-08-19 05:05] LABS: BASOPHILS # (AUTO) 0.1 /CMM (0.0-0.2); BASOPHILS % (AUTO) 1.4 % (0.0-2.0); EOSINOPHILS % (AUTO) 0.2 % (0.0-6.0); HEMATOCRIT 34 % (33-45); HEMOGLOBIN 11.1 g/dL (11.5-14.8); LYMPHOCYTES # (AUTO) 0.6 /CMM (0.8-4.8); LYMPHOCYTES % (AUTO) 6.4 % (20.0-44.0); MEAN CORPUSCULAR HGB CONC 33 g/dl (31.0-36.0); MEAN CORPUSCULAR VOLUME 95 fL (82-100); MONOCYTES # (AUTO) 0.8 /CMM (0.1-1.30); MONOCYTES % (AUTO) 8.1 % (2.0-12.0); NEUTROPHILS % (AUTO) 83.9 % (43.0-81.0); PLATELET COUNT (AUTO) 185 /CMM (150-450); RED BLOOD CELL COUNT(AUTO) 3.53 MIL/uL (4.0-5.2); WHITE BLOOD COUNT (AUTO) 9.5 K/uL (4.3-11.0)
[2020-08-19 05:25] LABS: ALBUMIN 1.7 g/dL (3.4-5.0); BILIRUBIN,DIRECT 0.4 mg/dL (0.0-0.2); BILIRUBIN,TOTAL 0.7 mg/dL (0.2-1.0); CALCIUM, SERUM 9.9 mg/dL (8.5-10.1); POTASSIUM 4.2 mmol/L (3.5-5.1); TOTAL PROTEIN, SERUM 5.8 g/dL (6.4-8.2)
[2020-08-19 06:42] LABS: ABG BASE EXCESS 5.4 mmol/L; ABG OXYGEN SATURATION 98.9 % (92.0-98.5); ABG PH 7.444 (7.350-7.450); ABG PO2 140.4 mmHg (75.0-100.0); AaDO2 237.9 mmHg; COHb 0.1 % (0.5-1.5); MetHb 0.2 % (0.0-1.5); O2Hb 98.6 % (94.0-97.0); PEEP,BG 14 cm H2O; SITE, ABG Right Brachial; VENT MODE, BG AC 16 400 60% +14; VT, ABG 400 mL
--- NOTE | 2020-08-19 07:00 | NUR ---
RN NOTES PATIENT REMAINED STABLE TOLERATED ETT AND VENT SETTING ORDERED. NO CHANGE OF SETTING THROUGHOUT THE SHIFT. AFEBRILE. VSS. NO APPARENT DISTRESS. CONTINUE ON SEDATION IV SITE RUNNING WITH DIPRIVAN TITRATED ORDERED. NO SIGNIFICANT CHANGES THROUGHOUT THE SHIFT. KEPT PT CLEAN AND DRY. WILL CONTINUE POC.
--- NOTE | 2020-08-19 07:15 | NUR ---
RN NOTES RECEIVED PATIENT ORALLY INTUBATED WTIH ETT 7.5 AND 23 CM AT LIPLINE WITH VENT SETTING AC 16 TV 400 FIO2 60% AND PEEP 14 SEDATED WITH DIPRIVAN. AFIB CONTROLLED. WITH OGT INTACT AND PATENT. IV SITE ON RIGHT SUBCLAVIAN TLC AND LFA G 20 AND LAC G 18 INTACT AND PATENT. THORPE CATH IN PLACE WITH YELLOW CLOUDY COLOR URINE. SAFETY MEASURES IN PLACE, BED IN LOWEST LOCKED POSITION WITH SIDE RAILS UP. WILL CONTINUE TO MONITOR.
[2020-08-19] MEDS: MAGNESIUM OXIDE 400 MG TABLET GT SCH ×2 (08:34→16:50)
[2020-08-19] MEDS: MULTIVIT W/MINERALS 1 TAB TABLET GT SCH (08:35)
[2020-08-19] MEDS: ASCORBIC ACID 500 MG TABLET GT SCH (08:35)
[2020-08-19] MEDS: LACTULOSE 10 G/15 ML UDC (PYXIS) GT SCH ×2 (08:35→16:50)
[2020-08-19] MEDS: GABAPENTIN 100 MG CAPSULE GT SCH ×3 (08:35→16:50)
[2020-08-19] MEDS: DOCUSATE SODIUM LIQ 100 MG/10 ML UDC GT SCH ×2 (08:35→16:50)
[2020-08-19] MEDS: LEVETIRACETAM SOL (5 ML) 100 MG/ML UDC GT SCH ×2 (08:36→21:22)
[2020-08-19] MEDS: PANTOPRAZOLE 40 MG/PACK PACK GT SCH (08:36)
[2020-08-19] MEDS: ZINC SULFATE 220 MG CAPSULE GT SCH (08:36)
[2020-08-19] MEDS: POTASSIUM CHLORIDE 20 MEQ POWDER PACKET GT SCH ×2 (08:36→16:50)
[2020-08-19] MEDS: SENNOSIDES 8.6 MG TABLET GT SCH ×2 (08:36→16:50)
[2020-08-19] MEDS: FOLIC ACID 1 MG TABLET GT SCH (08:36)
[2020-08-19] MEDS: VITAMIN B COMP W-C 1 TAB TABLET GT SCH (08:37)
[2020-08-19] MEDS: THIAMINE HCL 100 MG TABLET GT SCH (08:37)
[2020-08-19] MEDS: DICYCLOMINE HCL 10 MG/5 ML UDC GT SCH ×3 (08:37→16:49)
[2020-08-19] MEDS: DEXAMETHASONE SOD PHOSPHATE 10 MG/ML VIAL IV SCH (08:37)
[2020-08-19] MEDS: APIXABAN 5 MG TABLET GT SCH ×2 (08:39→16:52)
[2020-08-19] MEDS: METOPROLOL TARTRATE 25 MG TABLET GT SCH ×2 (08:40→16:51)
[2020-08-19] MEDS: PROSOURCE / PROSTAT (PYXIS) 30 ML UDC GT SCH ×2 (08:41→17:02)
[2020-08-19] MEDS ORDERED: FUROSEMIDE 20 MG/2 ML VIAL IV ONE (09:00)
--- NOTE | 2020-08-19 09:30 | NUR ---
RN NOTES PER DR. CHEEK, HOLD SEDATION VACATION.
[2020-08-19] MEDS: MUPIROCIN OINT 2% 22 GM TUBE NS SCH ×2 (09:34→21:33)
[2020-08-19] MEDS: TIMOLOL 0.25% SOL OPHTH 10 ML BOTTLE EACHEYE SCH ×2 (09:34→17:02)
[2020-08-19] MEDS: IV NS 0.9% 250 ML IV PRN (15:09)
[2020-08-19] MEDS: REMDESIVIR (CHARGED) 100 MG in IV NS 0.9% 230 ML IV SCH (15:38)
--- NOTE | 2020-08-19 18:03 | NUR ---
RT NOTE Pt received intubated and on [facility] vent w ordered settings. Vent is plugged into red outlet. Alarms are set and audible w bmv @ hob. Ett is secure and patent. No resp distress noted t/o shift. Will continue to monitor. Addendum: 08/19/20 at 1815 by BLAISE MARTINEZ RT Amended: Links added.
--- NOTE | 2020-08-19 19:00 | NUR ---
RN NOTES PATIENT ORALLY INTUBATED WTIH ETT 7.5 AND 23 CM AT LIPLINE WITH VENT SETTING AC 16 TV 380 FIO2 50% AND PEEP 12 SEDATED WITH DIPRIVAN. AFIB CONTROLLED. WITH OGT INTACT AND PATENT. IV SITE ON RIGHT SUBCLAVIAN TLC AND LFA G 20 AND LAC G 18 INTACT AND PATENT. THORPE CATH IN PLACE. SAFETY MEASURES IN PLACE, BED IN LOWEST LOCKED POSITION WITH SIDE RAILS UP. WILL ENDORSE TO INVESTIGATOR INTERNAL AFFAIRS NURSE FOR OWEN.
--- NOTE | 2020-08-19 20:57 | NUR ---
Received patient intubated on AC 16 380 50% +12. On ET tube 7.5 23cm @ lip. Ambu bag at bedside. Vent plugged into red outlet. No signs of respiratory distress noted. Suctioned small amount of thick yellow secretions. Will continue to monitor. Addendum: 08/19/20 at 2100 by CINDY BURTON RT Amended: Links added.
[2020-08-19] MEDS: LATANOPROST EYE DROP 0.005% 2.5 ML BOTTLE EACHEYE SCH (22:03)
[2020-08-20] VITALS (25 sets, daily range): BP systolic 79–112; BP diastolic 47–68
[2020-08-20] MEDS: DILTIAZEM HCL 30 MG TABLET GT SCH ×5 (00:30→23:45)
[2020-08-20] MEDS: PROPOFOL 100 ML IV PRN ×5 (03:17→23:39)
[2020-08-20 04:38] LABS: BASOPHILS % (AUTO) 0.2 % (0.0-2.0); HEMATOCRIT 34 % (33-45); HEMOGLOBIN 11.1 g/dL (11.5-14.8); LYMPHOCYTES # (AUTO) 0.5 /CMM (0.8-4.8); LYMPHOCYTES % (AUTO) 8.2 % (20.0-44.0); MEAN CORPUSCULAR HGB CONC 33 g/dl (31.0-36.0); MEAN CORPUSCULAR VOLUME 95 fL (82-100); MONOCYTES # (AUTO) 0.5 /CMM (0.1-1.30); MONOCYTES % (AUTO) 8.1 % (2.0-12.0); NEUTROPHILS # (AUTO) 5.6 /CMM (1.8-8.9); NEUTROPHILS % (AUTO) 83.5 % (43.0-81.0); PLATELET COUNT (AUTO) 186 /CMM (150-450); RED BLOOD CELL COUNT(AUTO) 3.55 MIL/uL (4.0-5.2); WHITE BLOOD COUNT (AUTO) 6.7 K/uL (4.3-11.0)
[2020-08-20 04:50] LABS: ALBUMIN 1.6 g/dL (3.4-5.0); BILIRUBIN,DIRECT 0.4 mg/dL (0.0-0.2); BILIRUBIN,TOTAL 0.6 mg/dL (0.2-1.0); CALCIUM, SERUM 9.9 mg/dL (8.5-10.1); CREATININE 0.9 mg/dL (0.6-1.3); MAGNESIUM 2.3 mg/dL (1.8-2.4); POTASSIUM 4.2 mmol/L (3.5-5.1); TOTAL PROTEIN, SERUM 5.9 g/dL (6.4-8.2)
[2020-08-20] MEDS: MEROPENEM 1 G in IV NS 0.9% 100 ML IV SCH ×3 (05:29→20:54)
--- NOTE | 2020-08-20 07:08 | NUR ---
RN NOTES RECEIVED PATIENT ORALLY INTUBATED WTIH ETT 7.5 AND 23 CM AT LIPLINE WITH VENT SETTING AC 16 TV 380 FIO2 50% AND PEEP 12 SEDATED WITH DIPRIVAN. AFIB CONTROLLED. WITH OGT INTACT AND PATENT. IV SITE ON RIGHT SUBCLAVIAN TLC AND LFA G 20 AND LAC G 18 INTACT AND PATENT. THORPE CATH IN PLACE WITH CLEAR YELLOW URINE. SAFETY MEASURES IN PLACE, BED IN LOWEST LOCKED POSITION WITH SIDE RAILS UP. WILL CONTINUE TO MONITOR.
--- NOTE | 2020-08-20 07:15 | NUR ---
Patient remains in no acute distress in bed. patient did not have any significant change in condition during shift. all needs met, all orders carried out. patient tolerated vent setting well and tube feeding rate. bed in low lock position with rials up x 2. call light within reach and all safety measures ensured and carried out. will endorse care to am RN for continuity of care.
[2020-08-20] MEDS: DICYCLOMINE HCL 10 MG/5 ML UDC GT SCH ×3 (08:32→16:47)
[2020-08-20] MEDS: LACTULOSE 10 G/15 ML UDC (PYXIS) GT SCH ×2 (08:33→16:46)
[2020-08-20] MEDS: SENNOSIDES 8.6 MG TABLET GT SCH ×2 (08:33→16:47)
[2020-08-20] MEDS: MAGNESIUM OXIDE 400 MG TABLET GT SCH ×2 (08:33→16:46)
[2020-08-20] MEDS: GABAPENTIN 100 MG CAPSULE GT SCH ×3 (08:33→16:46)
[2020-08-20] MEDS: POTASSIUM CHLORIDE 20 MEQ POWDER PACKET GT SCH ×2 (08:33→16:47)
[2020-08-20] MEDS: PANTOPRAZOLE 40 MG/PACK PACK GT SCH (08:34)
[2020-08-20] MEDS: DEXAMETHASONE SOD PHOSPHATE 10 MG/ML VIAL IV SCH (08:34)
[2020-08-20] MEDS: FOLIC ACID 1 MG TABLET GT SCH (08:34)
[2020-08-20] MEDS: DOCUSATE SODIUM LIQ 100 MG/10 ML UDC GT SCH ×2 (08:34→16:46)
[2020-08-20] MEDS: VITAMIN B COMP W-C 1 TAB TABLET GT SCH (08:34)
[2020-08-20] MEDS: ASCORBIC ACID 500 MG TABLET GT SCH (08:34)
[2020-08-20] MEDS: LEVETIRACETAM SOL (5 ML) 100 MG/ML UDC GT SCH ×2 (08:34→20:53)
[2020-08-20] MEDS: THIAMINE HCL 100 MG TABLET GT SCH (08:35)
[2020-08-20] MEDS: MULTIVIT W/MINERALS 1 TAB TABLET GT SCH (08:36)
[2020-08-20] MEDS: ZINC SULFATE 220 MG CAPSULE GT SCH (08:36)
[2020-08-20] MEDS: APIXABAN 5 MG TABLET GT SCH ×2 (08:40→16:48)
[2020-08-20] MEDS: PROSOURCE / PROSTAT (PYXIS) 30 ML UDC GT SCH ×2 (08:41→16:48)
[2020-08-20] MEDS: METOPROLOL TARTRATE 25 MG TABLET GT SCH ×2 (09:00→16:49)
[2020-08-20] MEDS: MUPIROCIN OINT 2% 22 GM TUBE NS SCH ×2 (09:39→20:54)
[2020-08-20] MEDS: TIMOLOL 0.25% SOL OPHTH 10 ML BOTTLE EACHEYE SCH ×2 (09:39→16:48)
[2020-08-20] MEDS: IV NS 0.9% 1,000 ML IV PRN (10:05)
--- NOTE | 2020-08-20 11:00 | NUR ---
RN NOTES PER DR. JOHN TO HOLD SEDATION VACATION AT THIS TIME. WILL CONTINUE TO MONITOR.
[2020-08-20 11:20] LABS: ABG OXYGEN SATURATION 92.7 % (92.0-98.5); ABG PCO2 47.2 mmHg (35.0-45.0); ABG PH 7.424 (7.350-7.450); ABG PO2 67.7 mmHg (75.0-100.0); AaDO2 235.7 mmHg; COHb 0.2 % (0.5-1.5); O2Hb 92.5 % (94.0-97.0); SITE, ABG Left Radial; VENT MODE, BG AC 16 380 +8 50%
[2020-08-20] MEDS: VANCOMYCIN 1.25 GM in IV D5W 250 ML IV SCH (16:12)
--- NOTE | 2020-08-20 18:28 | NUR ---
RN NOTES PATIENT ORALLY INTUBATED WTIH ETT 7.5 AND 23 CM AT LIPLINE WITH VENT SETTING AC 16 TV 380 FIO2 50% AND PEEP 10 SEDATED WITH DIPRIVAN. AFIB CONTROLLED. WITH OGT INTACT AND PATENT. IV SITE ON RIGHT SUBCLAVIAN TLC AND LFA G 20 AND LAC G 18 INTACT AND PATENT. THORPE CATH IN PLACE WITH CLEAR YELLOW URINE. SAFETY MEASURES IN PLACE, BED IN LOWEST LOCKED POSITION WITH SIDE RAILS UP. WILL ENDORSE TO RAILWAY HEAD TENDER NURSE FOR OWEN.
--- NOTE | 2020-08-20 21:30 | NUR ---
PLATE SHEAR OPERATOR OPENING NOTES RECEIVED PT IN BED. SEDATED. PATIENT ORALLY INTUBATED ETT 7.5 AND 23 CM AT LIP, WITH VENT SETTING AC 16 TV 380 FIO2 50% AND PEEP 10 SEDATED WITH DIPRIVAN. ON CARDIAC MONITORING PT PRESENTS WITH AFIB CONTROLLED. HEART RATE OF 84. HX BASELINE TO PT. WITH OGT INTACT AND PATENT, CLAMPED. AUSCULTATED TO CONFIRM PLACEMENT. RESIDUAL <5CC. IV SITE ON RIGHT SUBCLAVIAN TLC AND LFA G 20 AND LAC G 18 INTACT AND PATENT. THORPE CATHETER PRESENT DRAINING CLEAR YELLOW URINE. RESTRAINTS ON. CIRCULATION CHECKED. SAFETY MEASURES IN PLACE, BED IN LOWEST LOCKED POSITION WITH SIDE RAILS UPX2. WILL CONTINUE TO MONITOR. Addendum: 08/20/20 at 2207 by VILMA HANDY RN INCORRECT TIME, RECEIVED PT AT 2029
--- NOTE | 2020-08-20 21:45 | NUR ---
ICU/PARAOPTOMETRIC RECEIVED REPORT FROM JOSH NURSEVILMA FOR CONTINUATION OF CARE.
--- NOTE | 2020-08-20 22:07 | NUR ---
GAVE REPORT TO MG WANG, FOR CONTINUATION OF CARE. PT IS STABLE AT THIS TIME.
[2020-08-20] MEDS: LATANOPROST EYE DROP 0.005% 2.5 ML BOTTLE EACHEYE SCH (22:56)
[2020-08-21] VITALS (27 sets, daily range): BP systolic 84–186; BP diastolic 44–144
--- NOTE | 2020-08-21 00:55 | NUR ---
RT NOTE Pt rec'd orally intubated via ETT 7.5 secured @ 23cm at the lipline. Pt on [facility] vent on AC mode settings as charted. Pt sx'd for thick small amt of pale yellow secretions. Alarms are set and audible. Ambu bag bedside. Vent plugged into red outlet. Will continue to monitor closely. Addendum: 08/21/20 at 0055 by JORDAN BO RT Amended: Links added.
[2020-08-21] MEDS: IV NS 0.9% 1,000 ML IV PRN (02:31)
[2020-08-21] MEDS: PROPOFOL 100 ML IV PRN ×4 (03:53→23:05)
[2020-08-21] MEDS: MEROPENEM 1 G in IV NS 0.9% 100 ML IV SCH ×3 (04:42→21:02)
[2020-08-21 05:13] LABS: HEMATOCRIT 36 % (33-45); HEMOGLOBIN 11.7 g/dL (11.5-14.8); LYMPHOCYTES # (AUTO) 0.4 /CMM (0.8-4.8); LYMPHOCYTES % (AUTO) 6.9 % (20.0-44.0); MEAN CORPUSCULAR HGB CONC 33 g/dl (31.0-36.0); MEAN CORPUSCULAR VOLUME 95 fL (82-100); MONOCYTES # (AUTO) 0.4 /CMM (0.1-1.30); MONOCYTES % (AUTO) 6.9 % (2.0-12.0); NEUTROPHILS # (AUTO) 5.5 /CMM (1.8-8.9); NEUTROPHILS % (AUTO) 86.2 % (43.0-81.0); PLATELET COUNT (AUTO) 191 /CMM (150-450); RED BLOOD CELL COUNT(AUTO) 3.73 MIL/uL (4.0-5.2); WHITE BLOOD COUNT (AUTO) 6.4 K/uL (4.3-11.0)
[2020-08-21 05:23] LABS: CALCIUM, SERUM 10.2 mg/dL (8.5-10.1); CARBON DIOXIDE 33 mmol/L (21-32); CHLORIDE 108 mmol/L (98-107); CREATININE 0.8 mg/dL (0.6-1.3); GLUCOSE 92 mg/dL (74-106); POTASSIUM 4.8 mmol/L (3.5-5.1); SODIUM SERUM 143 mmol/L (136-145); UREA NITROGEN, BLOOD 35 mg/dL (7-18)
[2020-08-21 05:33] LABS: TRIGLYCERIDES 72 mg/dL (30-150)
[2020-08-21] MEDS: DILTIAZEM HCL 30 MG TABLET GT SCH ×3 (05:50→18:00)
--- NOTE | 2020-08-21 06:10 | NUR ---
ICU/PACKAGING SALES CONSULTANT CARDIZEM NOT GIVEN DUE TO LOW BP AND PT IS CARDIZEM WILL ASK DAY SHIFT NURSE TO GET PARAMETERS.
[2020-08-21] MEDS: PROSOURCE / PROSTAT (PYXIS) 30 ML UDC GT SCH ×2 (08:39→16:25)
[2020-08-21] MEDS: DEXAMETHASONE SOD PHOSPHATE 10 MG/ML VIAL IV SCH (08:39)
[2020-08-21] MEDS: SENNOSIDES 8.6 MG TABLET GT SCH ×2 (08:39→16:24)
[2020-08-21] MEDS: FOLIC ACID 1 MG TABLET GT SCH (08:39)
[2020-08-21] MEDS: PANTOPRAZOLE 40 MG/PACK PACK GT SCH (08:40)
[2020-08-21] MEDS: GABAPENTIN 100 MG CAPSULE GT SCH ×3 (08:40→16:23)
[2020-08-21] MEDS: POTASSIUM CHLORIDE 20 MEQ POWDER PACKET GT SCH ×2 (08:40→16:23)
[2020-08-21] MEDS: VITAMIN B COMP W-C 1 TAB TABLET GT SCH (08:40)
[2020-08-21] MEDS: THIAMINE HCL 100 MG TABLET GT SCH (08:40)
[2020-08-21] MEDS: ASCORBIC ACID 500 MG TABLET GT SCH (08:40)
[2020-08-21] MEDS: DOCUSATE SODIUM LIQ 100 MG/10 ML UDC GT SCH ×2 (08:41→16:23)
[2020-08-21] MEDS: APIXABAN 5 MG TABLET GT SCH ×2 (08:41→16:23)
[2020-08-21] MEDS: TIMOLOL 0.25% SOL OPHTH 10 ML BOTTLE EACHEYE SCH ×2 (08:44→16:24)
[2020-08-21] MEDS: VANCOMYCIN 1.25 GM in IV D5W 250 ML IV SCH (09:00)
[2020-08-21] MEDS: ZINC SULFATE 220 MG CAPSULE GT SCH (09:35)
[2020-08-21] MEDS: LEVETIRACETAM SOL (5 ML) 100 MG/ML UDC GT SCH ×2 (09:36→21:02)
[2020-08-21] MEDS: LACTULOSE 10 G/15 ML UDC (PYXIS) GT SCH ×2 (09:36→16:23)
[2020-08-21] MEDS: MULTIVIT W/MINERALS 1 TAB TABLET GT SCH (09:36)
[2020-08-21] MEDS: MAGNESIUM OXIDE 400 MG TABLET GT SCH ×2 (09:36→16:24)
[2020-08-21] MEDS: METOPROLOL TARTRATE 25 MG TABLET GT SCH ×2 (09:36→16:24)
[2020-08-21] MEDS: MUPIROCIN OINT 2% 22 GM TUBE NS SCH ×2 (09:44→21:02)
[2020-08-21] MEDS: DICYCLOMINE HCL 10 MG/5 ML UDC GT SCH ×3 (10:39→16:19)
[2020-08-21] MEDS: LATANOPROST EYE DROP 0.005% 2.5 ML BOTTLE EACHEYE SCH (21:02)
[2020-08-22] VITALS (24 sets, daily range): BP systolic 80–110; BP diastolic 48–70
[2020-08-22] MEDS: PROPOFOL 100 ML IV PRN ×5 (04:14→23:20)
[2020-08-22] MEDS: MEROPENEM 1 G in IV NS 0.9% 100 ML IV SCH ×3 (04:41→20:01)
[2020-08-22] MEDS: DILTIAZEM HCL 30 MG TABLET GT SCH ×4 (05:37→17:08)
--- NOTE | 2020-08-22 07:30 | NUR ---
RN OPENING NOTES PATIENT PRESENT IN BED, ON VENTILATOR, TOLERATING SETTINGS WELL, SPO2 IS 98%, AT THIS MOMENT, RESPIRATIONS EVEN AND UNLABORED,PATIENT IN ISOLATED ROOM FOR COVID, SEDATED ON PROPOFOL @ 30MCG/KG, TOLERATING WELL, OG RUBE PRESENT IN PLACE, VERIFIED PLACEMENT WITH AUSCULTATION, THORPE CATH IN PLACE, DRAINING DARK YELLOW URINE BY GRAVITY, INTACT AND PATENT, FLEXISEAL IN PLACE , INTACT AND PATENT, GENERALIZED EDEMA NOTED R SUB TLC NOTED AND L FA 20G NOTED, BOTH PATENT, INTACT AND FLUSHED SAFETY MEASURES IN PLACE, BED IS LOCKED IN LOWEST POSITION, CALL LIGHT IN REACH, MONITORS IS ON AND WORKING PROPERLY, HOB ELEVATED, WILL CONT TO MONITOR ,
[2020-08-22] MEDS: DOCUSATE SODIUM LIQ 100 MG/10 ML UDC GT SCH ×2 (08:41→16:59)
[2020-08-22] MEDS: POTASSIUM CHLORIDE 20 MEQ POWDER PACKET GT SCH ×2 (08:41→17:04)
[2020-08-22] MEDS: LACTULOSE 10 G/15 ML UDC (PYXIS) GT SCH ×2 (08:41→16:59)
[2020-08-22] MEDS: VITAMIN B COMP W-C 1 TAB TABLET GT SCH (08:42)
[2020-08-22] MEDS: ASCORBIC ACID 500 MG TABLET GT SCH (08:42)
[2020-08-22] MEDS: MULTIVIT W/MINERALS 1 TAB TABLET GT SCH (08:42)
[2020-08-22] MEDS: THIAMINE HCL 100 MG TABLET GT SCH (08:42)
[2020-08-22] MEDS: PANTOPRAZOLE 40 MG/PACK PACK GT SCH (08:42)
[2020-08-22] MEDS: LEVETIRACETAM SOL (5 ML) 100 MG/ML UDC GT SCH ×2 (08:42→20:26)
[2020-08-22] MEDS: GABAPENTIN 100 MG CAPSULE GT SCH ×3 (08:42→17:05)
[2020-08-22] MEDS: SENNOSIDES 8.6 MG TABLET GT SCH ×2 (08:42→17:25)
[2020-08-22] MEDS: FOLIC ACID 1 MG TABLET GT SCH (08:43)
[2020-08-22] MEDS: MUPIROCIN OINT 2% 22 GM TUBE NS SCH ×2 (08:43→20:32)
[2020-08-22] MEDS: MAGNESIUM OXIDE 400 MG TABLET GT SCH ×2 (08:43→17:04)
[2020-08-22] MEDS: DEXAMETHASONE SOD PHOSPHATE 10 MG/ML VIAL IV SCH (08:43)
[2020-08-22] MEDS: PROSOURCE / PROSTAT (PYXIS) 30 ML UDC GT SCH ×2 (08:44→17:25)
[2020-08-22] MEDS: METOPROLOL TARTRATE 25 MG TABLET GT SCH ×2 (08:45→17:00)
[2020-08-22] MEDS: ZINC SULFATE 220 MG CAPSULE GT SCH (08:47)
[2020-08-22] MEDS: APIXABAN 5 MG TABLET GT SCH ×2 (08:48→17:03)
[2020-08-22] MEDS: DICYCLOMINE HCL 10 MG/5 ML UDC GT SCH ×3 (08:52→17:44)
[2020-08-22] MEDS: TIMOLOL 0.25% SOL OPHTH 10 ML BOTTLE EACHEYE SCH ×2 (08:57→17:34)
[2020-08-22] MEDS ORDERED: VANCOMYCIN 1.25 GM in IV D5W 250 ML IV SCH (09:00)
[2020-08-22 09:34] LABS: ABG BASE EXCESS 2.3 mmol/L; ABG OXYGEN SATURATION 91.5 % (92.0-98.5); ABG PCO2 41.1 mmHg (35.0-45.0); ABG PH 7.432 (7.350-7.450); ABG PO2 63.2 mmHg (75.0-100.0); AaDO2 247.1 mmHg; COHb 0.5 % (0.5-1.5); MetHb 0.1 % (0.0-1.5); SITE, ABG Right Radial; VENT MODE, BG AC 16 380 +5 50%
--- NOTE | 2020-08-22 11:52 | NUR ---
holding Vanco due pending Vanco toxicology results
--- NOTE | 2020-08-22 12:00 | NUR ---
WASN'T ABLE TO PERFORM SEDATION VACATION DUE 1;3 RATIO
[2020-08-22] MEDS: IV NS 0.9% 250 ML IV PRN (13:06)
--- NOTE | 2020-08-22 13:25 | NUR ---
REPORT GIVEN TO ANGELA MIRANDA, FOR OWEN
[2020-08-22 14:27] LABS: CALCIUM, SERUM 11.3 mg/dL (8.5-10.1); CREATININE 0.9 mg/dL (0.6-1.3); POTASSIUM 5.5 mmol/L (3.5-5.1)
--- NOTE | 2020-08-22 19:30 | NUR ---
RN NOTES RECEIVED PATIENT IN BED INTUBATED SEDATED ON DIPRIVAN TOLERATING WELL. NO S/S OF DISTRESS NOTED. CONTROLLED AFIB. OGT INTACT PATENT PLACEMENT CHECKED BY AUSCULTATION. IV SITES INTACT PATENT FLUSHING WELL. F/C INTACT DRAINING WELL TO GRAVITY. SAFETY MEASURES IN PLACE, SIDE RAILS UP CALL LIGHT WITHIN REACH. WILL CONT TO MONITOR.
[2020-08-22] MEDS: LATANOPROST EYE DROP 0.005% 2.5 ML BOTTLE EACHEYE SCH (21:03)
[2020-08-22] MEDS: VANCOMYCIN 1 GM in IV D5W 250 ML IV SCH (22:33)
--- NOTE | 2020-08-22 22:33 | NUR ---
TROUGH LEVEL IS 21 PER PHARMACIST OK TO GIVE NEXT DOSE OF VANCO.
[2020-08-23] VITALS (24 sets, daily range): BP systolic 88–110; BP diastolic 42–75
[2020-08-23] MEDS: MEROPENEM 1 G in IV NS 0.9% 100 ML IV SCH ×3 (04:00→20:11)
[2020-08-23] MEDS: PROPOFOL 100 ML IV PRN ×5 (04:00→23:00)
[2020-08-23 04:51] LABS: BASOPHILS % (AUTO) 0.2 % (0.0-2.0); EOSINOPHILS % (AUTO) 0.2 % (0.0-6.0); HEMATOCRIT 38 % (33-45); HEMOGLOBIN 12.3 g/dL (11.5-14.8); LYMPHOCYTES # (AUTO) 0.5 /CMM (0.8-4.8); LYMPHOCYTES % (AUTO) 5.6 % (20.0-44.0); MEAN CORPUSCULAR HGB CONC 33 g/dl (31.0-36.0); MEAN CORPUSCULAR VOLUME 96 fL (82-100); MONOCYTES # (AUTO) 0.5 /CMM (0.1-1.30); MONOCYTES % (AUTO) 5.9 % (2.0-12.0); NEUTROPHILS # (AUTO) 7.3 /CMM (1.8-8.9); NEUTROPHILS % (AUTO) 88.1 % (43.0-81.0); PLATELET COUNT (AUTO) 172 /CMM (150-450); RED BLOOD CELL COUNT(AUTO) 3.95 MIL/uL (4.0-5.2); WHITE BLOOD COUNT (AUTO) 8.3 K/uL (4.3-11.0)
[2020-08-23 05:05] LABS: CREATININE 0.8 mg/dL (0.6-1.3); POTASSIUM 4.8 mmol/L (3.5-5.1)
[2020-08-23] MEDS: DILTIAZEM HCL 30 MG TABLET GT SCH ×4 (06:00→17:37)
[2020-08-23 06:21] LABS: ABG BASE EXCESS 0.5 mmol/L; ABG OXYGEN SATURATION 89.4 % (92.0-98.5); ABG PCO2 38.5 mmHg (35.0-45.0); ABG PH 7.426 (7.350-7.450); ABG PO2 56.2 mmHg (75.0-100.0); COHb 1.1 % (0.5-1.5); MetHb 0.3 % (0.0-1.5); O2Hb 88.1 % (94.0-97.0); SITE, ABG Right Radial; VENT MODE, BG ac16 380 50% +5
--- NOTE | 2020-08-23 07:15 | NUR ---
CUSTOMS AND BORDER PROTECTION OFFICER NOTES RECEIVED PATIENT SEDATED , RESPONSIVE TO PAIN STIMULI , NOT IN ACUTE DISTRESS , RESPIRATIONS EVEN AND UNLABORED WITH SPO2 OF 94% VIA MECHANICAL VENT SETTINGS ORDERED , SR95 ON BEDSIDE MONITOR , FLEXISEAL IN PLACE DRAINING VIA GRAVITY , FC DRIANING VIA GRAVITY , OGT PATENT AND INTACT CLAMPED NO RESIDUALS NOTED , RIGHT SUBCLAVIAN TLC WITH DIPRIVA @ 30MCG/KG/MIN , NS @ TKO INFUSING WELL CVP READING 5-6MMHG WITH GOOD WAVE FORM , WILL CONTINUE TO MONITOR .
--- NOTE | 2020-08-23 08:30 | NUR ---
LEASE OPERATOR NOTES LACTULOSE , COLACE , SENOKOT HELD , PT IS HAVING DIARRHEA .
[2020-08-23] MEDS: DICYCLOMINE HCL 10 MG/5 ML UDC GT SCH ×4 (09:00→16:24)
[2020-08-23] MEDS: SENNOSIDES 8.6 MG TABLET GT SCH ×2 (09:00→09:03)
[2020-08-23] MEDS: LACTULOSE 10 G/15 ML UDC (PYXIS) GT SCH ×3 (09:00→16:22)
[2020-08-23] MEDS: DOCUSATE SODIUM LIQ 100 MG/10 ML UDC GT SCH ×2 (09:00→09:03)
[2020-08-23] MEDS: THIAMINE HCL 100 MG TABLET GT SCH (09:03)
[2020-08-23] MEDS: POTASSIUM CHLORIDE 20 MEQ POWDER PACKET GT SCH ×2 (09:03→16:22)
[2020-08-23] MEDS: MAGNESIUM OXIDE 400 MG TABLET GT SCH ×2 (09:03→16:22)
[2020-08-23] MEDS: PANTOPRAZOLE 40 MG/PACK PACK GT SCH (09:03)
[2020-08-23] MEDS: FOLIC ACID 1 MG TABLET GT SCH (09:03)
[2020-08-23] MEDS: LEVETIRACETAM SOL (5 ML) 100 MG/ML UDC GT SCH ×2 (09:03→20:20)
[2020-08-23] MEDS: DEXAMETHASONE SOD PHOSPHATE 10 MG/ML VIAL IV SCH (09:03)
[2020-08-23] MEDS: GABAPENTIN 100 MG CAPSULE GT SCH ×3 (09:03→16:22)
[2020-08-23] MEDS: VITAMIN B COMP W-C 1 TAB TABLET GT SCH (09:04)
[2020-08-23] MEDS: MULTIVIT W/MINERALS 1 TAB TABLET GT SCH (09:04)
[2020-08-23] MEDS: PROSOURCE / PROSTAT (PYXIS) 30 ML UDC GT SCH ×2 (09:04→16:24)
[2020-08-23] MEDS: ZINC SULFATE 220 MG CAPSULE GT SCH (09:04)
[2020-08-23] MEDS: ASCORBIC ACID 500 MG TABLET GT SCH (09:04)
[2020-08-23] MEDS: TIMOLOL 0.25% SOL OPHTH 10 ML BOTTLE EACHEYE SCH ×2 (09:04→16:22)
[2020-08-23] MEDS: MUPIROCIN OINT 2% 22 GM TUBE NS SCH ×2 (09:05→20:27)
[2020-08-23] MEDS: METOPROLOL TARTRATE 25 MG TABLET GT SCH ×3 (09:10→17:38)
[2020-08-23] MEDS: APIXABAN 5 MG TABLET GT SCH ×2 (09:12→16:23)
--- NOTE | 2020-08-23 11:30 | NUR ---
TRUST CLERK NOTES SEDATION VACATION @ 1100 SEDATION RESUMED @ 1130 PT NOTED WITH MILD AGITATION , SPO2 OF 87-88% WITH DISTRESS , PT ABLE TO FOLLOW SIMPLE COMMANDS, WILL CONTINUE TO MONITOR ,.
--- NOTE | 2020-08-23 13:04 | NUR ---
WELDER PIPE MAKING NOTES SEEN AND EVALUATED BY LEE ANN HOOPER , DISCUSSED LABS , CHEST XRAY AND CURRENT VITAL SIGNS , COLACE , SENOKOT AND LACTULOSE HELD DUE TO DIARRHEA , PER SHINGLE WEAVER DC COLACE AND SENOKOT , CONTINUE LACTULOSE , START NGT FEEDING PER DIETARY , ORDER CARRIED OUT
[2020-08-23] MEDS: TWOCAL HN 1,000 ML LIQUID GT PRN (17:45)
--- NOTE | 2020-08-23 19:30 | NUR ---
RN NOTES RECEIVED PATIENT IN BED INTUBATED SEDATED ON DIPRIVAN VENT SETTING TOLERATING WELL ORDERED. NO S/S OF ACUTE DISTRESS NOTED. TELE MONITOR READING AFIB. OGT INTACT PATENT PLACEMENT CHECKED BY AUSCULTATION TWO MALIK FEEDING RUNNING AT 20ML/HR NO RESIDUAL NOTED TOLERATING WELL. IV SITES INTACT PATENT FLUSHING WELL. F/C INTACT DRAINING WELL TO GRAVITY. SAFETY MEASURES IN PLACE, SIDE RAILS UP CALL LIGHT WITHIN REACH. WILL CONT TO MONITOR FOR OWEN.
[2020-08-23] MEDS: LATANOPROST EYE DROP 0.005% 2.5 ML BOTTLE EACHEYE SCH (22:11)
[2020-08-24] VITALS (24 sets, daily range): BP systolic 93–123; BP diastolic 47–73
[2020-08-24] MEDS: PROPOFOL 100 ML IV PRN ×6 (03:11→22:42)
--- NOTE | 2020-08-24 04:00 | NUR ---
RN NOTES PATIENT CONTINUES ON DIPRIVAN NO CHANGES NOTED VENT SETTING TOLERATING WELL ORDERED. SUCTION PROVIDED, MOUTH CARE GIVEN. BED BATH GIVEN TOLERATED WELL, KEPT CLEAN DRY AND COMFORTABLE. ALL SAFETY MEASURES IN PLACE. WILL CONT TO MONITOR.
[2020-08-24] MEDS: MEROPENEM 1 G in IV NS 0.9% 100 ML IV SCH ×3 (04:01→19:42)
[2020-08-24] MEDS: DILTIAZEM HCL 30 MG TABLET GT SCH ×5 (06:00→23:41)
[2020-08-24 06:07] LABS: BASOPHILS % (AUTO) 0.2 % (0.0-2.0); EOSINOPHILS % (AUTO) 0.1 % (0.0-6.0); HEMATOCRIT 40 % (33-45); HEMOGLOBIN 12.8 g/dL (11.5-14.8); LYMPHOCYTES # (AUTO) 0.5 /CMM (0.8-4.8); LYMPHOCYTES % (AUTO) 4.6 % (20.0-44.0); MEAN CORPUSCULAR HGB CONC 32 g/dl (31.0-36.0); MEAN CORPUSCULAR VOLUME 96 fL (82-100); MONOCYTES # (AUTO) 0.3 /CMM (0.1-1.30); MONOCYTES % (AUTO) 3.4 % (2.0-12.0); NEUTROPHILS # (AUTO) 9.2 /CMM (1.8-8.9); NEUTROPHILS % (AUTO) 91.7 % (43.0-81.0); PLATELET COUNT (AUTO) 184 /CMM (150-450); RED BLOOD CELL COUNT(AUTO) 4.16 MIL/uL (4.0-5.2); WHITE BLOOD COUNT (AUTO) 10.1 K/uL (4.3-11.0)
[2020-08-24 06:08] LABS: CALCIUM, SERUM 11.2 mg/dL (8.5-10.1); CARBON DIOXIDE 30 mmol/L (21-32); CHLORIDE 111 mmol/L (98-107); CREATININE 0.8 mg/dL (0.6-1.3); GLUCOSE 98 mg/dL (74-106); POTASSIUM 5.3 mmol/L (3.5-5.1); SODIUM SERUM 144 mmol/L (136-145)
[2020-08-24 06:19] LABS: UREA NITROGEN, BLOOD 44 mg/dL (7-18)
[2020-08-24] MEDS: PANTOPRAZOLE 40 MG/PACK PACK GT SCH (07:36)
[2020-08-24] MEDS: LEVETIRACETAM SOL (5 ML) 100 MG/ML UDC GT SCH ×2 (08:48→20:15)
[2020-08-24] MEDS: GABAPENTIN 100 MG CAPSULE GT SCH ×3 (08:49→16:40)
[2020-08-24] MEDS: FOLIC ACID 1 MG TABLET GT SCH (08:49)
[2020-08-24] MEDS: MAGNESIUM OXIDE 400 MG TABLET GT SCH ×2 (08:49→16:39)
[2020-08-24] MEDS: ASCORBIC ACID 500 MG TABLET GT SCH (08:49)
[2020-08-24] MEDS: DEXAMETHASONE SOD PHOSPHATE 10 MG/ML VIAL IV SCH (08:50)
[2020-08-24] MEDS: LACTULOSE 10 G/15 ML UDC (PYXIS) GT SCH ×2 (08:50→16:37)
[2020-08-24] MEDS: APIXABAN 5 MG TABLET GT SCH ×2 (08:50→16:38)
[2020-08-24] MEDS: PROSOURCE / PROSTAT (PYXIS) 30 ML UDC GT SCH ×2 (08:52→16:40)
[2020-08-24] MEDS: ZINC SULFATE 220 MG CAPSULE GT SCH (08:57)
[2020-08-24] MEDS: THIAMINE HCL 100 MG TABLET GT SCH (08:57)
[2020-08-24] MEDS: MULTIVIT W/MINERALS 1 TAB TABLET GT SCH (08:57)
[2020-08-24] MEDS: VITAMIN B COMP W-C 1 TAB TABLET GT SCH (08:57)
[2020-08-24] MEDS: METOPROLOL TARTRATE 25 MG TABLET GT SCH ×2 (08:59→16:39)
[2020-08-24] MEDS: MUPIROCIN OINT 2% 22 GM TUBE NS SCH ×2 (09:09→21:08)
[2020-08-24] MEDS: TIMOLOL 0.25% SOL OPHTH 10 ML BOTTLE EACHEYE SCH ×2 (09:11→16:36)
[2020-08-24] MEDS: DICYCLOMINE HCL 10 MG/5 ML UDC GT SCH ×3 (09:14→16:37)
[2020-08-24] MEDS: VANCOMYCIN 1 GM in IV D5W 250 ML IV SCH (10:39)
--- NOTE | 2020-08-24 11:53 | NUR ---
RN NOTES ALL INFORMATION HAS BEEN DISCUSSED WITH AM NURSE. PATIENT CONTINUES ON DIPRIVAN, SEDATION VACATION DONE PT WAS AGITATED. IV LINES ARE INTACT PATENT FLUSHING WELL. F/C INTACT DARNING WELL, ALL SAFETY MEASURES IN PLACE. ENDORSED TO AM NURSE FOR OWEN.
--- NOTE | 2020-08-24 14:05 | NUR ---
TRANSITION NURSE NOTES RECEIVED PT FROM ELICEO RN. PT IS SEDATED ON DIPRIVAN NO SOB OR DISCOMFORT NOTED AT THIS TIME. TUBE ASPIRATED NO RESIDUAL NOTED AUSCULTATED AND GURGLING SOUND NOTED. PT HAS THORPE. WILL CONTINUE TO MONITOR THE PT.
--- NOTE | 2020-08-24 19:39 | NUR ---
STUMMEL SELECTOR NOTES PT ON VENT AND DIPRIVAN, SEDATED NO SOB OR DISCOMFORT NOTED. ALL MEDS ADMINISTRATED. NO MAJOR CHANGES DURING SHIFT. ALL NEEDS ATTENDED. REPORT GIVEN TO GURU RN FOR OWEN.
--- NOTE | 2020-08-24 19:40 | NUR ---
RN NOTE PT WITHOUT SIGNS OF DISTRESS WHILE ON CURRENT VENT SETTINGS. OGT PATENCY AND PLACEMENT VERIFIED VIA AUSCULTATION AND ASPIRATION OF GASTRIC CONTENTS. NO RESIDUAL NOTED. RESUMED ORDERED TUBE FEEDING.
--- NOTE | 2020-08-24 20:06 | NUR ---
PT REC'D ORALLY INTUBATED VIA ETT 7.5 SECURED @ 23 CM LIP LINE ON [facility] VENT WITH NOTED SETTINGS. NO RESPIRATORY DISTRESS NOTED AT THIS TIME. SX DONE. ALARMS ARE SET AND AUDIBLE. VENT PLUGGED INTO RED OUTLET. AMBU BAG@ BEDSIDE. WILL CONTINUE TO MONITOR T/O THE SHIFT.
[2020-08-24] MEDS: LATANOPROST EYE DROP 0.005% 2.5 ML BOTTLE EACHEYE SCH (21:08)
[2020-08-25] VITALS (26 sets, daily range): BP systolic 94–140; BP diastolic 48–85
[2020-08-25] MEDS: PROPOFOL 100 ML IV PRN (01:54)
--- NOTE | 2020-08-25 02:00 | NUR ---
RN NOTE PT SEDATED. NO SIGNS OF DISTRESS PAIN OR DISCOMFORT, VITAL SIGNS STABLE VIA BEDSIDE MONITOR. WILL CONTINUE TO MONITOR.
[2020-08-25] MEDS: MEROPENEM 1 G in IV NS 0.9% 100 ML IV SCH ×3 (03:02→19:58)
[2020-08-25 05:09] LABS: BASOPHILS # (AUTO) 0.1 /CMM (0.0-0.2); BASOPHILS % (AUTO) 0.5 % (0.0-2.0); EOSINOPHILS % (AUTO) 0.1 % (0.0-6.0); HEMATOCRIT 39 % (33-45); HEMOGLOBIN 12.4 g/dL (11.5-14.8); LYMPHOCYTES # (AUTO) 0.4 /CMM (0.8-4.8); LYMPHOCYTES % (AUTO) 3.4 % (20.0-44.0); MEAN CORPUSCULAR HGB CONC 32 g/dl (31.0-36.0); MEAN CORPUSCULAR VOLUME 97 fL (82-100); MONOCYTES # (AUTO) 0.6 /CMM (0.1-1.30); MONOCYTES % (AUTO) 5.5 % (2.0-12.0); NEUTROPHILS # (AUTO) 9.7 /CMM (1.8-8.9); NEUTROPHILS % (AUTO) 90.5 % (43.0-81.0); PLATELET COUNT (AUTO) 182 /CMM (150-450); RED BLOOD CELL COUNT(AUTO) 3.97 MIL/uL (4.0-5.2); WHITE BLOOD COUNT (AUTO) 10.7 K/uL (4.3-11.0)
[2020-08-25 05:28] LABS: CALCIUM, SERUM 11.6 mg/dL (8.5-10.1); CREATININE 0.7 mg/dL (0.6-1.3)
[2020-08-25] MEDS: DILTIAZEM HCL 30 MG TABLET GT SCH ×3 (05:41→17:55)
--- NOTE | 2020-08-25 07:37 | NUR ---
RN NOTE NO ACUTE CHANGES OBSERVED OVERNIGHT. PT INTUBATED AND TOLERATING VENT SETTINGS WELL. CVP MONITORING IN PLACE. IV LINES PATENT AND INTACT WITHOUT COMPLICATIONS NOTED AT SITES. THORPE CATHETER PATENT AND IN PLACE DRAINING URINE. FLEXISEAL IN PLACE DRAINING SOFT STOOL. VITAL SIGNS STABLE VIA BEDSIDE MONITOR. 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 OGT PATENT AND IN PLACE VERIFIED BU AUSCULTATION AND ASPIRATION OF GASTRIC CONTENTS. ONGOING TUBE FEEDING ORDERED. ALL NEEDS MET AND ATTENDED TO, SAFETY MEASURES IN PLACE PER PROTOCOL, ENDORSED TO MORNING RN FOR OWEN.
[2020-08-25] MEDS: PANTOPRAZOLE 40 MG/PACK PACK GT SCH (08:00)
[2020-08-25] MEDS: LACTULOSE 10 G/15 ML UDC (PYXIS) GT SCH ×2 (08:00→17:05)
--- NOTE | 2020-08-25 08:00 | NUR ---
curriculum specialist received pt in bed sedated on propofol intubated settings noted tube placement noted xray reviewed lines in sat placement, iv access picc r subclavian patent infusing meds as ordered, pt has khan cath draining sedimented urine, og tube patent infusing tube feeding noticed 300cc residual held feeding till further notice, pt is weeping from bilateral upper extremities skin tears present upper extremities, sacral skin excoriation and redness noted w/ scan blood discharge applied zgaurd and mepilex. flexaseal is leaking stool provided nelson care reinforced seal turn and reposition in bed provided sedation vacation pt tolerated well opens eyes does not follow will keep pt off of sedation propofol for now to see if pt can tolerate vent w/o sedation. safety measues taken call light w/ in reach over ratio 3 pt to 1 RN, will cont to monitor.
[2020-08-25] MEDS: FOLIC ACID 1 MG TABLET GT SCH (08:01)
[2020-08-25] MEDS: DICYCLOMINE HCL 10 MG/5 ML UDC GT SCH ×3 (08:01→17:05)
[2020-08-25] MEDS: TIMOLOL 0.25% SOL OPHTH 10 ML BOTTLE EACHEYE SCH ×2 (08:01→17:05)
[2020-08-25] MEDS: ASCORBIC ACID 500 MG TABLET GT SCH (08:02)
[2020-08-25] MEDS: ZINC SULFATE 220 MG CAPSULE GT SCH (08:02)
[2020-08-25] MEDS: MUPIROCIN OINT 2% 22 GM TUBE NS SCH ×2 (08:02→21:54)
[2020-08-25] MEDS: THIAMINE HCL 100 MG TABLET GT SCH (08:02)
[2020-08-25] MEDS: PROSOURCE / PROSTAT (PYXIS) 30 ML UDC GT SCH ×2 (08:02→17:05)
[2020-08-25] MEDS: VITAMIN B COMP W-C 1 TAB TABLET GT SCH (08:02)
[2020-08-25] MEDS: MULTIVIT W/MINERALS 1 TAB TABLET GT SCH (08:02)
[2020-08-25] MEDS: MAGNESIUM OXIDE 400 MG TABLET GT SCH ×2 (08:47→17:05)
[2020-08-25] MEDS: DEXAMETHASONE SOD PHOSPHATE 10 MG/ML VIAL IV SCH (08:47)
[2020-08-25] MEDS: GABAPENTIN 100 MG CAPSULE GT SCH ×3 (08:47→17:05)
[2020-08-25] MEDS: LEVETIRACETAM SOL (5 ML) 100 MG/ML UDC GT SCH ×2 (08:47→20:27)
[2020-08-25] MEDS: METOPROLOL TARTRATE 25 MG TABLET GT SCH ×2 (08:48→17:00)
[2020-08-25] MEDS: APIXABAN 5 MG TABLET GT SCH ×2 (08:56→17:56)
--- NOTE | 2020-08-25 12:40 | NUR ---
articulation officer gt residual tube feeding 15cc resumed gt feeding as ordered will cont to monitor.
--- NOTE | 2020-08-25 19:35 | NUR ---
RN NOTE RECEIVED PT WITHOUT SIGNS OF DISTRESS WHILE ON CURRENT VENT SETTINGS. SEDATION OFF. PT ABLE TO OPEN EYES UPON COMMAND BUT CANNOT FOLLOW ANY OTHER COMMANDS. NO SIGNS OF PAIN OR DISCOMFORT. VITAL SIGNS STABLE ABEDSIDE MONITOR. AFIB ON THE MONITOR. FLEXISEAL IN PLACE. THORPE CATHETER PATENT AND IN PLACE DRAINING URINE VIA GRAVITY. OGT PATENCY AND PLACEMENT VERIFIED VIA AUSCULTATION AND ASPIRATION OF GASTRIC CONTENTS BEFORE RESUMING FEEDING ORDERED. NO RESIDUAL NOTED. SAFETY MEASURES IN PLACE PER PROTOCOL, BED LOCKED AND IN LOW POSITION, SIDE RAILS UP X 2, WILL MONITOR PATIENT.
[2020-08-25] MEDS: LATANOPROST EYE DROP 0.005% 2.5 ML BOTTLE EACHEYE SCH (21:55)
[2020-08-26] VITALS (24 sets, daily range): BP systolic 83–143; BP diastolic 45–102
[2020-08-26] MEDS: DILTIAZEM HCL 30 MG TABLET GT SCH ×4 (00:09→17:49)
[2020-08-26] MEDS: PROPOFOL 100 ML IV PRN ×3 (02:01→18:48)
[2020-08-26] MEDS: MEROPENEM 1 G in IV NS 0.9% 100 ML IV SCH ×3 (03:52→20:19)
[2020-08-26 04:36] LABS: BASOPHILS % (AUTO) 0.2 % (0.0-2.0); EOSINOPHILS % (AUTO) 0.1 % (0.0-6.0); HEMATOCRIT 40 % (33-45); LYMPHOCYTES # (AUTO) 0.7 /CMM (0.8-4.8); LYMPHOCYTES % (AUTO) 5.7 % (20.0-44.0); MEAN CORPUSCULAR HGB CONC 33 g/dl (31.0-36.0); MEAN CORPUSCULAR VOLUME 95 fL (82-100); MONOCYTES # (AUTO) 0.7 /CMM (0.1-1.30); MONOCYTES % (AUTO) 5.5 % (2.0-12.0); NEUTROPHILS # (AUTO) 10.7 /CMM (1.8-8.9); NEUTROPHILS % (AUTO) 88.5 % (43.0-81.0); PLATELET COUNT (AUTO) 177 /CMM (150-450); RED BLOOD CELL COUNT(AUTO) 4.18 MIL/uL (4.0-5.2); WHITE BLOOD COUNT (AUTO) 12.1 K/uL (4.3-11.0)
[2020-08-26 04:47] LABS: CALCIUM, SERUM 11.9 mg/dL (8.5-10.1); CARBON DIOXIDE 31 mmol/L (21-32); CHLORIDE 112 mmol/L (98-107); CREATININE 0.7 mg/dL (0.6-1.3); GLUCOSE 98 mg/dL (74-106); POTASSIUM 5.1 mmol/L (3.5-5.1); SODIUM SERUM 144 mmol/L (136-145); UREA NITROGEN, BLOOD 43 mg/dL (7-18)
--- NOTE | 2020-08-26 06:51 | NUR ---
RN NOTE RECEIVED PT WITHOUT SIGNS OF DISTRESS WHILE ON CURRENT VENT SETTINGS. SEDATION RESUMED DURING SHIFT DUE TO SIGNS OF MILD AGITATION. PT ABLE TO OPEN EYES UPON COMMAND BUT CANNOT FOLLOW ANY OTHER COMMANDS. NO SIGNS OF PAIN OR DISCOMFORT. VITAL SIGNS STABLE VIA BEDSIDE MONITOR. AFIB ON THE MONITOR. FLEXISEAL IN PLACE. THORPE CATHETER PATENT AND IN PLACE DRAINING URINE VIA GRAVITY. OGT PATENCY AND PLACEMENT VERIFIED VIA AUSCULTATION AND ASPIRATION OF GASTRIC CONTENTS. WOUND CARE DONE ORDERED, TURNED AND REPOSITIONED Q2H TOLERATED, NO RESIDUAL NOTED. SAFETY MEASURES IN PLACE PER PROTOCOL, BED LOCKED AND IN LOW POSITION, SIDE RAILS UP X 2, WILL ENDORSE TO MORNING SHIFT FOR OWEN.
--- NOTE | 2020-08-26 07:20 | NUR ---
RN INITIAL NOTES RECEIVED PT INTUBATED, ON VENT. HOB ELEVATED. NO RESPIRATORY DISTRESS NOTED. OG TUBE IN PLACE, TUBE FEEDING ON. RIGHT SUBCLAVIAN TLC IN PLACE, DIPRIVAN INFUSING. WILL TITRATE ACCORDINGLY. THORPE AND FLEXISEAL IN PLACE. BLE ELEVATED. WILL CLOSELY MONITOR
[2020-08-26] MEDS: LACTULOSE 10 G/15 ML UDC (PYXIS) GT SCH ×2 (08:30→16:27)
[2020-08-26] MEDS: VITAMIN B COMP W-C 1 TAB TABLET GT SCH (08:30)
[2020-08-26] MEDS: ASCORBIC ACID 500 MG TABLET GT SCH (08:31)
[2020-08-26] MEDS: LEVETIRACETAM SOL (5 ML) 100 MG/ML UDC GT SCH ×2 (08:31→20:21)
[2020-08-26] MEDS: MULTIVIT W/MINERALS 1 TAB TABLET GT SCH (08:31)
[2020-08-26] MEDS: PROSOURCE / PROSTAT (PYXIS) 30 ML UDC GT SCH ×2 (08:31→16:26)
[2020-08-26] MEDS: PANTOPRAZOLE 40 MG/PACK PACK GT SCH (08:31)
[2020-08-26] MEDS: THIAMINE HCL 100 MG TABLET GT SCH (08:31)
[2020-08-26] MEDS: MAGNESIUM OXIDE 400 MG TABLET GT SCH ×2 (08:31→16:26)
[2020-08-26] MEDS: ZINC SULFATE 220 MG CAPSULE GT SCH (08:31)
[2020-08-26] MEDS: GABAPENTIN 100 MG CAPSULE GT SCH ×3 (08:31→16:26)
[2020-08-26] MEDS: FOLIC ACID 1 MG TABLET GT SCH (08:31)
[2020-08-26] MEDS: METOPROLOL TARTRATE 25 MG TABLET GT SCH ×2 (08:32→16:27)
[2020-08-26] MEDS: MUPIROCIN OINT 2% 22 GM TUBE NS SCH ×2 (08:32→20:23)
[2020-08-26] MEDS: APIXABAN 5 MG TABLET GT SCH ×2 (09:00→17:49)
[2020-08-26] MEDS: TIMOLOL 0.25% SOL OPHTH 10 ML BOTTLE EACHEYE SCH ×2 (09:08→16:28)
[2020-08-26] MEDS: DICYCLOMINE HCL 10 MG/5 ML UDC GT SCH ×3 (09:13→16:27)
[2020-08-26] MEDS: TWOCAL HN 1,000 ML LIQUID GT PRN (11:36)
--- NOTE | 2020-08-26 18:36 | NUR ---
RN CLOSING NOTES NO SIGNIFICANT CHANGE NOTED. REMAINS INTUABTED, ON VENT. /TOLERTAING TUBE FEEDING ON. KEPT SEDATED. KEPT CLEAN AND DRY. REPOSITIONING WHEN ABLE DUE TO ISOLATION. WILL ENDORSE FOR CONTINUITY OF CARE.
--- NOTE | 2020-08-26 19:30 | NUR ---
RN NOTES RECEIVED PATIENT IN BED INTUBATED SEDATED ON DIPRIVAN VENT SETTING TOLERATING WELL ORDERED. NO S/S OF ACUTE DISTRESS NOTED. TELE MONITOR READING AFIB. OGT INTACT PATENT PLACEMENT CHECKED BY AUSCULTATION TWO MALIK FEEDING RUNNING AT 20ML/HR NOTED WITH MINIMAL RESIDUAL 10ML. IV SITES INTACT PATENT FLUSHING WELL. F/C INTACT DRAINING WELL TO GRAVITY. SAFETY MEASURES IN PLACE, SIDE RAILS UP CALL LIGHT WITHIN REACH. WILL CONT TO MONITOR FOR OWEN.
[2020-08-26] MEDS ORDERED: DIGOXIN INJ 0.5 MG/2 ML AMPUL IV ONE (21:30)
[2020-08-26] MEDS: LATANOPROST EYE DROP 0.005% 2.5 ML BOTTLE EACHEYE SCH (21:45)
--- NOTE | 2020-08-26 22:50 | NUR ---
RN NOTES PATIENT'S HR IS 159, DR. JACKSON NOTIFIED NEW ORDER RECEIVED TO GIVE DIGOXIN 0.6MG Q6HR X3 DOSES. ORDER NOTED AND CARRIED OUT. PHARMACIST NOTIFIED, PER PHARMACIST IT'S HIGH DOSE. DR. JACKSON NOTIFIED, PER MD IT'S NOT OK TO GIVE THE MEDICATION.
[2020-08-26] MEDS ORDERED: DIGOXIN INJ 0.5 MG/2 ML AMPUL IV SCH (23:00)
[2020-08-26] MEDS: DIGOXIN INJ 0.5 MG/2 ML AMPUL IV SCH (23:23)
[2020-08-27] VITALS (23 sets, daily range): BP systolic 88–121; BP diastolic 44–64
[2020-08-27] MEDS: DILTIAZEM HCL 30 MG TABLET GT SCH ×4 (00:37→17:36)
[2020-08-27] MEDS: PROPOFOL 100 ML IV PRN ×3 (02:11→17:47)
[2020-08-27] MEDS: MEROPENEM 1 G in IV NS 0.9% 100 ML IV SCH ×2 (04:30→13:43)
[2020-08-27 04:51] LABS: BASOPHILS % (AUTO) 0.1 % (0.0-2.0); EOSINOPHILS % (AUTO) 3.5 % (0.0-6.0); HEMATOCRIT 36 % (33-45); HEMOGLOBIN 11.8 g/dL (11.5-14.8); LYMPHOCYTES # (AUTO) 0.7 /CMM (0.8-4.8); LYMPHOCYTES % (AUTO) 6.4 % (20.0-44.0); MEAN CORPUSCULAR HGB CONC 33 g/dl (31.0-36.0); MEAN CORPUSCULAR VOLUME 95 fL (82-100); MONOCYTES # (AUTO) 0.5 /CMM (0.1-1.30); MONOCYTES % (AUTO) 4.3 % (2.0-12.0); NEUTROPHILS # (AUTO) 9.2 /CMM (1.8-8.9); NEUTROPHILS % (AUTO) 85.7 % (43.0-81.0); PLATELET COUNT (AUTO) 130 /CMM (150-450); RED BLOOD CELL COUNT(AUTO) 3.78 MIL/uL (4.0-5.2); WHITE BLOOD COUNT (AUTO) 10.7 K/uL (4.3-11.0)
[2020-08-27 05:00] LABS: CALCIUM, SERUM 11.9 mg/dL (8.5-10.1); CARBON DIOXIDE 31 mmol/L (21-32); CHLORIDE 113 mmol/L (98-107); CREATININE 0.7 mg/dL (0.6-1.3); GLUCOSE 97 mg/dL (74-106); POTASSIUM 4.6 mmol/L (3.5-5.1); SODIUM SERUM 147 mmol/L (136-145); UREA NITROGEN, BLOOD 48 mg/dL (7-18)
[2020-08-27] MEDS ORDERED: DIGOXIN INJ 0.5 MG/2 ML AMPUL ONE (06:10)
[2020-08-27] MEDS: DIGOXIN INJ 0.5 MG/2 ML AMPUL IV SCH ×2 (07:05→13:25)
--- NOTE | 2020-08-27 07:43 | NUR ---
RN NOTES NO ACUTE CHANGES NOTED, PATIENT CONTINUES ON VENT, SETTING TOLERATING ORDERED. CONTINUES ON DIPRIVAN TOLERATING WELL. VITAL SIGNS REMAINED STABLE. NO SOB NO DISTRESS NOTED. SR/ST ON TELE MONITOR. IV SITES INTACT PATENT FLUSHES WELL NO INFILTRATION NOTED. F/C INTACT DARNING WELL VIA GRAVITY. FLEXISEAL IN PLACE. ALL SAFETY MEASURES IN PLACE, CALL LIGHT WITHIN REACH. BED IN LOW AND LOCKED POSITION. ENDORSE TO AM NURSE FOR OWEN. Addendum: 08/27/20 at 0757 by DEREK ENGLE RN ENDORSE TO AM NURSE TO TAKE WOUND PICTURES.
[2020-08-27] MEDS: METOPROLOL TARTRATE 25 MG TABLET GT SCH ×2 (09:00→17:00)
[2020-08-27] MEDS: LACTULOSE 10 G/15 ML UDC (PYXIS) GT SCH (09:00)
[2020-08-27] MEDS: PANTOPRAZOLE 40 MG/PACK PACK GT SCH (10:16)
[2020-08-27] MEDS: DICYCLOMINE HCL 10 MG/5 ML UDC GT SCH ×3 (10:16→17:49)
[2020-08-27] MEDS: THIAMINE HCL 100 MG TABLET GT SCH (10:17)
[2020-08-27] MEDS: ASCORBIC ACID 500 MG TABLET GT SCH (10:17)
[2020-08-27] MEDS: GABAPENTIN 100 MG CAPSULE GT SCH ×3 (10:18→17:49)
[2020-08-27] MEDS: APIXABAN 5 MG TABLET GT SCH ×2 (10:19→17:50)
[2020-08-27] MEDS: MAGNESIUM OXIDE 400 MG TABLET GT SCH ×2 (10:20→17:49)
[2020-08-27] MEDS: MULTIVIT W/MINERALS 1 TAB TABLET GT SCH (10:20)
[2020-08-27] MEDS: VITAMIN B COMP W-C 1 TAB TABLET GT SCH (10:20)
[2020-08-27] MEDS: FOLIC ACID 1 MG TABLET GT SCH (10:20)
[2020-08-27] MEDS: LEVETIRACETAM SOL (5 ML) 100 MG/ML UDC GT SCH ×2 (10:21→20:45)
[2020-08-27] MEDS: ZINC SULFATE 220 MG CAPSULE GT SCH (10:21)
[2020-08-27] MEDS: TIMOLOL 0.25% SOL OPHTH 10 ML BOTTLE EACHEYE SCH ×2 (10:25→17:50)
[2020-08-27] MEDS: PROSOURCE / PROSTAT (PYXIS) 30 ML UDC GT SCH ×3 (10:29→17:48)
[2020-08-27] MEDS: MUPIROCIN OINT 2% 22 GM TUBE NS SCH ×2 (10:31→21:00)
--- NOTE | 2020-08-27 15:38 | NUR ---
Social Service Note: JOVANNY called the pts sister, Vivian ([phone]), and informed her that the SW is returning her call. She stated that she wanted information on becoming the pts DPOA and SW assisted her on how to find the forms online and then informed her that she would need a notary and provided her with the following number: Karolyn Gonzalez ([phone]). JOVANNY stated that she can call back if she has any other questions.
--- NOTE | 2020-08-27 19:58 | NUR ---
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 INITIAL ASSESSMENT. RECEIVED THE PT REST ON THE BED. ORALLY INTUBATED, SEDATED WITH DIPRIVAN. 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 TWO. MALIK 20ML/H, FC PATENT. IV RT SUBCLAVIAN TRIPLE LUMEN DIP 15MCG/KG/MIN, FC PATENT. URINE DRAINING, HOB ELEVATED. WILL CONTINUE TO MONITOR VITALS.
[2020-08-27] MEDS: LATANOPROST EYE DROP 0.005% 2.5 ML BOTTLE EACHEYE SCH (22:00)
[2020-08-28] VITALS (36 sets, daily range): BP systolic 85–125; BP diastolic 35–70
--- NOTE | 2020-08-28 | NUR ---
CLINICAL TRIAL HEAD. REMAINING SAME VENT SETTING TOLERATED WELL. WILL CONTINUE TO MONITOR.
[2020-08-28] MEDS: PROPOFOL 100 ML IV PRN ×3 (00:01→19:39)
[2020-08-28 04:53] LABS: BASOPHILS % (AUTO) 0.3 % (0.0-2.0); EOSINOPHILS % (AUTO) 2.8 % (0.0-6.0); HEMATOCRIT 34 % (33-45); HEMOGLOBIN 11.2 g/dL (11.5-14.8); LYMPHOCYTES # (AUTO) 0.4 /CMM (0.8-4.8); MEAN CORPUSCULAR HGB CONC 33 g/dl (31.0-36.0); MEAN CORPUSCULAR VOLUME 97 fL (82-100); MONOCYTES # (AUTO) 0.4 /CMM (0.1-1.30); MONOCYTES % (AUTO) 4.1 % (2.0-12.0); NEUTROPHILS # (AUTO) 9.3 /CMM (1.8-8.9); NEUTROPHILS % (AUTO) 88.8 % (43.0-81.0); PLATELET COUNT (AUTO) 104 /CMM (150-450); RED BLOOD CELL COUNT(AUTO) 3.52 MIL/uL (4.0-5.2); WHITE BLOOD COUNT (AUTO) 10.4 K/uL (4.3-11.0)
[2020-08-28 05:02] LABS: CALCIUM, SERUM 11.5 mg/dL (8.5-10.1); CARBON DIOXIDE 32 mmol/L (21-32); CHLORIDE 116 mmol/L (98-107); CREATININE 0.5 mg/dL (0.6-1.3); GLUCOSE 99 mg/dL (74-106); POTASSIUM 4.6 mmol/L (3.5-5.1); SODIUM SERUM 150 mmol/L (136-145); UREA NITROGEN, BLOOD 39 mg/dL (7-18)
[2020-08-28] MEDS: DILTIAZEM HCL 30 MG TABLET GT SCH ×4 (06:20→17:31)
--- NOTE | 2020-08-28 06:42 | NUR ---
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 AM CARE, GIVEN LINEN CHANGED, REMAINING SAME VENT SETTING TOLERATED WELL. SAT 98%. NO ACUTE DISTRESS NOTED. 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 IV RT IJ DIPRIVAN 15MCG/KG/MIN, FC PATENT. REMINGTON SOFT WRIST RESTRAINT CHECKED AND RELEASED, NO INJURY -OR REDNESS NOTED, FLEXA SEAL INTACT. WILL CONTINUE TO MONITOR VITALS.
--- NOTE | 2020-08-28 07:15 | NUR ---
REPORT RECEIVED FROM SHALA MIRANDA FOR OWEN. PT ON VENT, TOLERATING AT ORDERED SETTINGS WITH PROPOFOL AT 15MCG/KG/MIN RUNNING. PT DEEPLY SEDATED. ETT IN PLACE, OGT IN PLACE, PLACEMENT VERIFIED, FEEDINGS RUNNING. IVS FLUSHED, PATENT, NO S/S INFECTION, CLAMPED. ALL MEDS RUNNING THROUGH TLC CATH. HOB ELEVATED. A FIB RATE CONTROLLED ON TELE. THORPE DRAINING TO GRAVITY. FLEXISEAL PATENT.
[2020-08-28] MEDS: PANTOPRAZOLE 40 MG/PACK PACK GT SCH (08:37)
[2020-08-28] MEDS: ASCORBIC ACID 500 MG TABLET GT SCH (08:37)
[2020-08-28] MEDS: ZINC SULFATE 220 MG CAPSULE GT SCH (08:37)
[2020-08-28] MEDS: LEVETIRACETAM SOL (5 ML) 100 MG/ML UDC GT SCH ×2 (08:37→21:54)
[2020-08-28] MEDS: MAGNESIUM OXIDE 400 MG TABLET GT SCH ×2 (08:38→17:31)
[2020-08-28] MEDS: GABAPENTIN 100 MG CAPSULE GT SCH ×3 (08:38→21:55)
[2020-08-28] MEDS: MULTIVIT W/MINERALS 1 TAB TABLET GT SCH (08:38)
[2020-08-28] MEDS: THIAMINE HCL 100 MG TABLET GT SCH (08:38)
[2020-08-28] MEDS: VITAMIN B COMP W-C 1 TAB TABLET GT SCH (08:38)
[2020-08-28] MEDS: APIXABAN 5 MG TABLET GT SCH ×2 (08:39→17:33)
[2020-08-28] MEDS: DICYCLOMINE HCL 10 MG/5 ML UDC GT SCH ×3 (08:45→17:36)
[2020-08-28] MEDS: PROSOURCE / PROSTAT (PYXIS) 30 ML UDC GT SCH ×3 (08:45→17:33)
[2020-08-28] MEDS: FOLIC ACID 1 MG TABLET GT SCH (08:45)
[2020-08-28] MEDS: METOPROLOL TARTRATE 25 MG TABLET GT SCH ×2 (08:45→17:31)
[2020-08-28] MEDS: MUPIROCIN OINT 2% 22 GM TUBE NS SCH ×2 (08:48→21:55)
--- NOTE | 2020-08-28 08:55 | NUR ---
NOTIFIED PHARMACY OF MISSING TIMOLOL DROPS
--- NOTE | 2020-08-28 10:00 | NUR ---
PROPOFOL DRIP REDUCED TO 10MCG/KG/MIN DUE TO SEDATION LEVEL. TOLERATING WELL.
[2020-08-28] MEDS: TIMOLOL 0.25% SOL OPHTH 10 ML BOTTLE EACHEYE SCH ×2 (13:00→17:30)
--- NOTE | 2020-08-28 15:39 | NUR ---
TOLERATING WELL ON VENT SETTINGS, PROPOFOL AT 10MCG/KG/MIN
[2020-08-28] MEDS: IV D5W 1,000 ML IV PRN (16:29)
--- NOTE | 2020-08-28 17:00 | NUR ---
LATE ENTRY: NEURONTIN NOT STOCKED IN OMNICELL. CALLED PHARMACY TO NOTIFY THAT IT NEEDS REFILL.
--- NOTE | 2020-08-28 17:01 | NUR ---
PT HAD ONE EPISODE OF DESATURATING TO 67% AND VENT ALARM GOING OFF. RT VANOUSH DEEP SUCTIONED PT, THICK OFF-WHITE/MCNEAL SECRETIONS, AND SAT IMMEDIATELY INCREASED TO 94%
--- NOTE | 2020-08-28 19:11 | NUR ---
REPORT GIVEN TO CINDY MIRANDA FOR OWEN. CHU NOTED. Addendum: 08/28/20 at 1914 by LUCI WALSH RN CORRECTION: REPORT GIVEN TO MG WANG
--- NOTE | 2020-08-28 19:45 | NUR ---
ICU/METAL SLITTER RECEIVED REPORT FROM DAY SHIFT NURSE, SEE FLOW SHEET FOR ASSESSMENT AND SKIN ISSUES ALONG WITH THE INTERVENTION TO THESE. PT WAS TURNED AND REPOSTIONED FOR COMFORT AND CARE.
--- NOTE | 2020-08-28 20:30 | NUR ---
ICU/PAPER CUTTER OPERATOR CVP IS NOT WORKING. WAS NOT SURE TO PT, NOT READING CORRECTLY.
--- NOTE | 2020-08-28 20:50 | NUR ---
RT NOTE Pt received intubated via 7.5 ETT @ 23cm. Airway is secure and patent. Vent is on ordered setting and plugged into red outlet w alarms set and audible. BMV @ hob. Pt sx'd w no adverse reactions. Will continue to monitor. Addendum: 08/28/20 at 2057 by BLAISE MARTINEZ RT Amended: Links added.
[2020-08-28] MEDS: LATANOPROST EYE DROP 0.005% 2.5 ML BOTTLE EACHEYE SCH (21:55)
--- NOTE | 2020-08-28 21:56 | NUR ---
ICU/BACK UP SCAN COORDINATOR DAY SHIFT NURSE DID NOT PASS THE 1700 DOSE OF NEURONTIN, UNSURE WHY THIS IS.
[2020-08-29] VITALS (28 sets, daily range): BP systolic 89–128; BP diastolic 38–79
[2020-08-29] MEDS: DILTIAZEM HCL 30 MG TABLET GT SCH ×5 (01:51→23:15)
[2020-08-29] MEDS: TWOCAL HN 1,000 ML LIQUID GT PRN (03:25)
[2020-08-29 04:54] LABS: CALCIUM, SERUM 11.8 mg/dL (8.5-10.1); CARBON DIOXIDE 33 mmol/L (21-32); CHLORIDE 115 mmol/L (98-107); CREATININE 0.5 mg/dL (0.6-1.3); GLUCOSE 92 mg/dL (74-106); POTASSIUM 4.3 mmol/L (3.5-5.1); SODIUM SERUM 149 mmol/L (136-145); UREA NITROGEN, BLOOD 38 mg/dL (7-18)
[2020-08-29] MEDS: PANTOPRAZOLE 40 MG/PACK PACK GT SCH (08:18)
[2020-08-29] MEDS: MAGNESIUM OXIDE 400 MG TABLET GT SCH ×2 (08:46→16:10)
[2020-08-29] MEDS: VITAMIN B COMP W-C 1 TAB TABLET GT SCH (08:46)
[2020-08-29] MEDS: METOPROLOL TARTRATE 25 MG TABLET GT SCH ×2 (08:46→16:11)
[2020-08-29] MEDS: GABAPENTIN 100 MG CAPSULE GT SCH ×3 (08:46→16:10)
[2020-08-29] MEDS: THIAMINE HCL 100 MG TABLET GT SCH (08:47)
[2020-08-29] MEDS: ZINC SULFATE 220 MG CAPSULE GT SCH (08:47)
[2020-08-29] MEDS: FOLIC ACID 1 MG TABLET GT SCH (08:47)
[2020-08-29] MEDS: APIXABAN 5 MG TABLET GT SCH ×2 (08:48→16:14)
[2020-08-29] MEDS: LEVETIRACETAM SOL (5 ML) 100 MG/ML UDC GT SCH ×2 (08:50→21:37)
[2020-08-29] MEDS: MULTIVIT W/MINERALS 1 TAB TABLET GT SCH (08:50)
[2020-08-29] MEDS: PROSOURCE / PROSTAT (PYXIS) 30 ML UDC GT SCH ×3 (08:50→16:14)
[2020-08-29] MEDS: ASCORBIC ACID 500 MG TABLET GT SCH (08:50)
[2020-08-29] MEDS: DICYCLOMINE HCL 10 MG/5 ML UDC GT SCH ×3 (08:54→16:14)
[2020-08-29] MEDS: MUPIROCIN OINT 2% 22 GM TUBE NS SCH (08:54)
[2020-08-29] MEDS: TIMOLOL 0.25% SOL OPHTH 10 ML BOTTLE EACHEYE SCH ×2 (08:54→16:14)
[2020-08-29] MEDS: PROPOFOL 100 ML IV PRN ×2 (10:14→21:45)
[2020-08-29] MEDS: LATANOPROST EYE DROP 0.005% 2.5 ML BOTTLE EACHEYE SCH (21:37)
[2020-08-29] MEDS: IV D5W 1,000 ML IV PRN (21:38)
[2020-08-30] VITALS (24 sets, daily range): BP systolic 85–123; BP diastolic 35–112
[2020-08-30] MEDS: TWOCAL HN 1,000 ML LIQUID GT PRN (04:02)
[2020-08-30] MEDS: DILTIAZEM HCL 30 MG TABLET GT SCH ×3 (05:38→18:16)
[2020-08-30] MEDS: LEVETIRACETAM SOL (5 ML) 100 MG/ML UDC GT SCH ×2 (08:12→21:17)
[2020-08-30] MEDS: ZINC SULFATE 220 MG CAPSULE GT SCH (08:12)
[2020-08-30] MEDS: MULTIVIT W/MINERALS 1 TAB TABLET GT SCH (08:12)
[2020-08-30] MEDS: PANTOPRAZOLE 40 MG/PACK PACK GT SCH (08:12)
[2020-08-30] MEDS: MAGNESIUM OXIDE 400 MG TABLET GT SCH ×2 (08:12→17:10)
[2020-08-30] MEDS: GABAPENTIN 100 MG CAPSULE GT SCH ×3 (08:13→17:12)
[2020-08-30] MEDS: APIXABAN 5 MG TABLET GT SCH ×2 (08:14→17:11)
[2020-08-30] MEDS: VITAMIN B COMP W-C 1 TAB TABLET GT SCH (08:15)
[2020-08-30] MEDS: METOPROLOL TARTRATE 25 MG TABLET GT SCH ×2 (08:16→17:12)
[2020-08-30] MEDS: THIAMINE HCL 100 MG TABLET GT SCH (08:16)
[2020-08-30] MEDS: FOLIC ACID 1 MG TABLET GT SCH (08:16)
[2020-08-30] MEDS: DICYCLOMINE HCL 10 MG/5 ML UDC GT SCH ×3 (08:16→17:12)
[2020-08-30] MEDS: PROSOURCE / PROSTAT (PYXIS) 30 ML UDC GT SCH ×3 (08:17→17:12)
[2020-08-30] MEDS: TIMOLOL 0.25% SOL OPHTH 10 ML BOTTLE EACHEYE SCH ×2 (09:17→17:12)
[2020-08-30] MEDS: ASCORBIC ACID 500 MG TABLET GT SCH (09:17)
[2020-08-30] MEDS: PROPOFOL 100 ML IV PRN ×2 (10:52→23:43)
--- NOTE | 2020-08-30 11:18 | NUR ---
CVP PUMP INITIATED PER MD ORDERS.
--- NOTE | 2020-08-30 20:00 | NUR ---
Received patient non verbal orally intubated on full vent support.Sedated on Diprivan gtt at 10 mcg. Dx:RESPIRATORY FAILURE,COVID 19+,PNEUMONIA.VSS.Afib controlled.OGT feeding in progress. Placement verified patent and small residual noted.Maintained HOB elevated.IVF infusing to R SCV TLC site intact.FC to gravity drainage.Flexi seal with small liquid drainage.Turned and repositioned. Continue monitoring.
[2020-08-30] MEDS: LATANOPROST EYE DROP 0.005% 2.5 ML BOTTLE EACHEYE SCH (21:17)
--- NOTE | 2020-08-30 22:00 | NUR ---
patient incontinent of urine.Silva catheter changed to FR#18.Bed bath rendered and complete linens changed.Turned and repositioned.
[2020-08-30] MEDS: IV D5W 1,000 ML IV PRN (23:15)
[2020-08-31] VITALS (25 sets, daily range): BP systolic 84–133; BP diastolic 40–75
--- NOTE | 2020-08-31 | NUR ---
Report given to ED,Elzbieta RN for continuity of care.My other patient 1:1.
[2020-08-31] MEDS: DILTIAZEM HCL 30 MG TABLET GT SCH ×4 (05:46→17:47)
--- NOTE | 2020-08-31 07:10 | NUR ---
received pt from night shift manager, sedated, a fib 70s controlled, ST, intubated, saturation well, f/c good output, OGT to feeding, tolerates well, v/s stable, no pain, pt turned and repositioned. no signs of distress. all tubing connected. all alarms checked. all hospital policy safety precautions implemented. orders carried out.
[2020-08-31] MEDS: PANTOPRAZOLE 40 MG/PACK PACK GT SCH (08:23)
[2020-08-31] MEDS: VITAMIN B COMP W-C 1 TAB TABLET GT SCH (08:30)
[2020-08-31] MEDS: GABAPENTIN 100 MG CAPSULE GT SCH ×3 (08:30→16:41)
[2020-08-31] MEDS: DICYCLOMINE HCL 10 MG/5 ML UDC GT SCH ×3 (08:30→16:42)
[2020-08-31] MEDS: FOLIC ACID 1 MG TABLET GT SCH (08:30)
[2020-08-31] MEDS: THIAMINE HCL 100 MG TABLET GT SCH (08:30)
[2020-08-31] MEDS: MAGNESIUM OXIDE 400 MG TABLET GT SCH ×2 (08:31→16:41)
[2020-08-31] MEDS: APIXABAN 5 MG TABLET GT SCH ×2 (08:31→16:42)
[2020-08-31] MEDS: LEVETIRACETAM SOL (5 ML) 100 MG/ML UDC GT SCH ×2 (08:31→21:22)
[2020-08-31] MEDS: ASCORBIC ACID 500 MG TABLET GT SCH (08:31)
[2020-08-31] MEDS: ZINC SULFATE 220 MG CAPSULE GT SCH (08:31)
[2020-08-31] MEDS: MULTIVIT W/MINERALS 1 TAB TABLET GT SCH (08:31)
[2020-08-31] MEDS: METOPROLOL TARTRATE 25 MG TABLET GT SCH ×2 (08:33→17:00)
[2020-08-31] MEDS: TIMOLOL 0.25% SOL OPHTH 10 ML BOTTLE EACHEYE SCH ×2 (08:33→17:00)
[2020-08-31] MEDS: PROSOURCE / PROSTAT (PYXIS) 30 ML UDC GT SCH ×3 (08:33→16:41)
[2020-08-31] MEDS: TWOCAL HN 1,000 ML LIQUID GT PRN (12:49)
[2020-08-31] MEDS: PROPOFOL 100 ML IV PRN (14:06)
--- NOTE | 2020-08-31 17:40 | NUR ---
THE ORDERED TIMOLOL AND METOPROLOL WERE HELD SBP RANGED FROM 88-105 THROUGHOUT THE SHIFT. AWARE, Addendum: 08/31/20 at 1748 by JAMES MENJIVAR RN HELD ORDERED CARDIZEM WELL
[2020-08-31] MEDS: IV D5W 1,000 ML IV PRN (17:49)
--- NOTE | 2020-08-31 18:25 | NUR ---
PT SEDATED IN BED W HOB ELEVATED. VENT SETTINGS ORDERED AND PT TOLERATING WELL W NO RESPIRATORY DISTRESS. PROPOFOL RUNNING ORDERED AND PT SEDATED. A FIB IN 70-80S ON TELE. VS WNL. SKIN WARM FLUSHED. FLEXISEAL AND THORPE INTACT. OGT RUNNING JEVITY ORDERED. AUSCULTATED AND NO RESIDUAL. R SUBCLAVIAN CENTRAL LINE INTACT AND FLUSHED. DRESSING DRY AND INTACT. IVF D5W RUNNING ORDERED. ALL ORDERS CARRIED OUT. REPORTED TO MD NEEDED. RAILS UPX2, HOB ELEVATED, BED LOW, LOCKED, ALL HOSPITAL POLICY SAFETY PRECAUTIONS IMPLEMENTED. TURNED Q2H AND ELEVATED EXTREMITIES. WILL ENDORSE TO PM RN.
--- NOTE | 2020-08-31 20:00 | NUR ---
Received patient non verbal orally intubated full vent support and sedated on Diprivan gtt. Dx: Respiratory Failure,Covid 19+, Pneumonia. VSS.Afib controlled.OGT feeding in progress and placement verified.Maintain HOB elevated.IVF and Diprivan infusing via R SVC TLC site intact.FC to gravity and Flexi seal in place.No acute distress noted.Turned and repositioned. Continue monitoring.
[2020-08-31] MEDS: LATANOPROST EYE DROP 0.005% 2.5 ML BOTTLE EACHEYE SCH (21:22)
[2020-09-01] VITALS (38 sets, daily range): BP systolic 61–116; BP diastolic 40–66
--- NOTE | 2020-09-01 | NUR ---
Patient remains sedated with perineal excoriation and weeping skin nelson area.Skin care done. Bed bath rendered and complete linens changed.Turned and repositioned.
[2020-09-01] MEDS: DILTIAZEM HCL 30 MG TABLET GT SCH ×5 (00:26→23:33)
[2020-09-01] MEDS: PROPOFOL 100 ML IV PRN ×2 (01:51→10:40)
[2020-09-01 04:34] LABS: BASOPHILS # (AUTO) 0.1 /CMM (0.0-0.2); BASOPHILS % (AUTO) 0.7 % (0.0-2.0); EOSINOPHILS % (AUTO) 2.1 % (0.0-6.0); HEMATOCRIT 31 % (33-45); HEMOGLOBIN 10.3 g/dL (11.5-14.8); LYMPHOCYTES # (AUTO) 0.4 /CMM (0.8-4.8); LYMPHOCYTES % (AUTO) 4.2 % (20.0-44.0); MEAN CORPUSCULAR HGB CONC 33 g/dl (31.0-36.0); MEAN CORPUSCULAR VOLUME 96 fL (82-100); MONOCYTES # (AUTO) 0.4 /CMM (0.1-1.30); MONOCYTES % (AUTO) 4.8 % (2.0-12.0); NEUTROPHILS # (AUTO) 8.3 /CMM (1.8-8.9); NEUTROPHILS % (AUTO) 88.2 % (43.0-81.0); PLATELET COUNT (AUTO) 74 /CMM (150-450); RED BLOOD CELL COUNT(AUTO) 3.22 MIL/uL (4.0-5.2); WHITE BLOOD COUNT (AUTO) 9.4 K/uL (4.3-11.0)
[2020-09-01 05:02] LABS: CALCIUM, SERUM 11.1 mg/dL (8.5-10.1); CARBON DIOXIDE 32 mmol/L (21-32); CHLORIDE 111 mmol/L (98-107); CREATININE 0.7 mg/dL (0.6-1.3); GLUCOSE 106 mg/dL (74-106); POTASSIUM 3.8 mmol/L (3.5-5.1); SODIUM SERUM 146 mmol/L (136-145); UREA NITROGEN, BLOOD 32 mg/dL (7-18)
[2020-09-01 05:09] LABS: BAND % (MANUAL) 4 % (0.0-5.0); EOSINOPHILS % (MANUAL) 2 % (0-4); LYMPHOCYTES % (MANUAL) 3 % (16-48); MONOCYTES % (MANUAL) 7 % (0-11.0); NEUTROPHILS % (MANUAL) 84 (42-76)
--- NOTE | 2020-09-01 05:30 | NUR ---
Patient resting.VSS remains stable.Tube feeding well tolerated.Due medications administered. No significant change noted during the shift.All needs met.Turned and repositioned.Will endorse to day shift for rona.
--- NOTE | 2020-09-01 08:31 | NUR ---
received pt from rack pusher, sedated on diprivan at 10mcg, Afib controlled, intubated, sat well, f/c OK output, OG to feeding tolerates well, rectal tube in, v/s stable, no pain, pt turned and repositioned.
[2020-09-01] MEDS: METOPROLOL TARTRATE 25 MG TABLET GT SCH ×2 (09:00→16:44)
[2020-09-01] MEDS: THIAMINE HCL 100 MG TABLET GT SCH (09:09)
[2020-09-01] MEDS: MULTIVIT W/MINERALS 1 TAB TABLET GT SCH (09:09)
[2020-09-01] MEDS: DICYCLOMINE HCL 10 MG/5 ML UDC GT SCH ×3 (09:09→16:46)
[2020-09-01] MEDS: LEVETIRACETAM SOL (5 ML) 100 MG/ML UDC GT SCH ×2 (09:09→21:04)
[2020-09-01] MEDS: GABAPENTIN 100 MG CAPSULE GT SCH ×3 (09:10→16:44)
[2020-09-01] MEDS: FOLIC ACID 1 MG TABLET GT SCH (09:10)
[2020-09-01] MEDS: ASCORBIC ACID 500 MG TABLET GT SCH (09:10)
[2020-09-01] MEDS: ZINC SULFATE 220 MG CAPSULE GT SCH (09:10)
[2020-09-01] MEDS: MAGNESIUM OXIDE 400 MG TABLET GT SCH ×2 (09:10→16:44)
[2020-09-01] MEDS: VITAMIN B COMP W-C 1 TAB TABLET GT SCH (09:10)
[2020-09-01] MEDS: TIMOLOL 0.25% SOL OPHTH 10 ML BOTTLE EACHEYE SCH ×2 (09:12→16:44)
[2020-09-01] MEDS: PANTOPRAZOLE 40 MG/PACK PACK GT SCH (09:13)
[2020-09-01] MEDS: PROSOURCE / PROSTAT (PYXIS) 30 ML UDC GT SCH ×3 (09:13→16:45)
[2020-09-01] MEDS: APIXABAN 5 MG TABLET GT SCH (10:44)
--- NOTE | 2020-09-01 16:22 | NUR ---
pt is resting in the bed, sedated on Diprivan at 10mcg, Afib, sat well, v/s stable, no pain, pt cleaned, changed and repositioned.
[2020-09-01] MEDS: IV D5W 1,000 ML IV PRN (18:19)
--- NOTE | 2020-09-01 19:46 | NUR ---
PATIENT RESTING IN BED. SEDATED ON DEPRIVAN 10MCG. AFIB CONTROLLED. INTUBATED, O2 SAT WELL @ 93%. WITH THORPE CATH DRAINING YELLOW COLORED URINE. FLEXI SEAL IN PLACE. OG TO FEEDING TOLERATING WELL. WITH RIGHT SUB TLC RUNNING D5W @ 40ML, INFUSING WELL. WILL CONTINUE TO MONITOR.
[2020-09-01] MEDS: LATANOPROST EYE DROP 0.005% 2.5 ML BOTTLE EACHEYE SCH (21:07)
[2020-09-02] VITALS (35 sets, daily range): BP systolic 86–123; BP diastolic 34–77
[2020-09-02] MEDS: PROPOFOL 100 ML IV PRN ×3 (01:22→21:33)
[2020-09-02 05:28] LABS: CALCIUM, SERUM 11.4 mg/dL (8.5-10.1); CREATININE 0.6 mg/dL (0.6-1.3); MAGNESIUM 1.8 mg/dL (1.8-2.4); PHOSPHORUS 2.9 mg/dL (2.5-4.9); POTASSIUM 3.6 mmol/L (3.5-5.1)
[2020-09-02] MEDS: DILTIAZEM HCL 30 MG TABLET GT SCH ×3 (06:09→17:24)
--- NOTE | 2020-09-02 07:16 | NUR ---
PATIENT RESTING IN BED. SEDATED ON DIPRIVAN 10MCG. AFIB CONTROLLED. INTUBATED, O2 SAT WELL @ 94%. WITH THORPE CATH DRAINING YELLOW COLORED URINE OUTPUT 400CC. FLEXI SEAL IN PLACE OUTPUT 200CC. OG TO FEEDING TOLERATING WELL. WITH RIGHT SUB TLC RUNNING D5W @ 40ML, INFUSING WELL. WILL ENDORSE TO ONCOMING SHIFT.
[2020-09-02] MEDS: PANTOPRAZOLE 40 MG/PACK PACK GT SCH (07:30)
--- NOTE | 2020-09-02 08:00 | NUR ---
DATA MANAGEMENT SOFT RESTRAINTS OFF.
[2020-09-02] MEDS: DICYCLOMINE HCL 10 MG/5 ML UDC GT SCH ×3 (09:29→17:25)
[2020-09-02] MEDS: ASCORBIC ACID 500 MG TABLET GT SCH (09:29)
[2020-09-02] MEDS: FOLIC ACID 1 MG TABLET GT SCH (09:29)
[2020-09-02] MEDS: MAGNESIUM OXIDE 400 MG TABLET GT SCH ×2 (09:29→17:23)
[2020-09-02] MEDS: THIAMINE HCL 100 MG TABLET GT SCH (09:29)
[2020-09-02] MEDS: VITAMIN B COMP W-C 1 TAB TABLET GT SCH (09:29)
[2020-09-02] MEDS: LEVETIRACETAM SOL (5 ML) 100 MG/ML UDC GT SCH ×2 (09:29→21:33)
[2020-09-02] MEDS: TIMOLOL 0.25% SOL OPHTH 10 ML BOTTLE EACHEYE SCH ×2 (09:29→17:26)
[2020-09-02] MEDS: ZINC SULFATE 220 MG CAPSULE GT SCH (09:30)
[2020-09-02] MEDS: PROSOURCE / PROSTAT (PYXIS) 30 ML UDC GT SCH ×3 (09:31→17:26)
[2020-09-02] MEDS: MULTIVIT W/MINERALS 1 TAB TABLET GT SCH (09:31)
[2020-09-02] MEDS: GABAPENTIN 100 MG CAPSULE GT SCH ×3 (09:31→17:23)
[2020-09-02] MEDS: METOPROLOL TARTRATE 25 MG TABLET GT SCH ×2 (09:39→17:24)
[2020-09-02] MEDS: TWOCAL HN 1,000 ML LIQUID GT PRN (17:48)
[2020-09-02] MEDS: IV D5W 1,000 ML IV PRN (17:54)
[2020-09-02] MEDS: LATANOPROST EYE DROP 0.005% 2.5 ML BOTTLE EACHEYE SCH (21:35)
[2020-09-03] VITALS (25 sets, daily range): BP systolic 89–117; BP diastolic 40–72
[2020-09-03 04:52] LABS: BASOPHILS % (AUTO) 0.2 % (0.0-2.0); EOSINOPHILS % (AUTO) 0.1 % (0.0-6.0); HEMATOCRIT 29 % (33-45); HEMOGLOBIN 9.6 g/dL (11.5-14.8); LYMPHOCYTES # (AUTO) 0.5 /CMM (0.8-4.8); LYMPHOCYTES % (AUTO) 7.1 % (20.0-44.0); MEAN CORPUSCULAR HGB CONC 33 g/dl (31.0-36.0); MEAN CORPUSCULAR VOLUME 96 fL (82-100); MONOCYTES # (AUTO) 0.4 /CMM (0.1-1.30); MONOCYTES % (AUTO) 4.9 % (2.0-12.0); NEUTROPHILS # (AUTO) 6.7 /CMM (1.8-8.9); NEUTROPHILS % (AUTO) 87.7 % (43.0-81.0); PLATELET COUNT (AUTO) 80 /CMM (150-450); RED BLOOD CELL COUNT(AUTO) 3.01 MIL/uL (4.0-5.2); WHITE BLOOD COUNT (AUTO) 7.7 K/uL (4.3-11.0)
[2020-09-03] MEDS: DILTIAZEM HCL 30 MG TABLET GT SCH ×5 (06:00→23:32)
[2020-09-03 06:33] LABS: BAND % (MANUAL) 4 % (0.0-5.0); LYMPHOCYTES % (MANUAL) 7 % (16-48); MONOCYTES % (MANUAL) 6 % (0-11.0); NEUTROPHILS % (MANUAL) 83 (42-76)
--- NOTE | 2020-09-03 07:10 | NUR ---
RN INITIAL NOTES RECEIVED PT INTUBATED, ON VENT. HOB ELEVATED. TOLERATING TUBE FEEDING WELL. RIGHT SUBCLAVIAN TLC IN PLACE. PT ON DIPRIVAN, WILL TITRATE ACCORDINGLY. IVF INFUSING. THORPE AND RECTAL TUBE IN PLACE. NO HEMATURIA NOTED. BLE ELEVATED. WILL CLOSELY MONITOR
[2020-09-03] MEDS: PROPOFOL 100 ML IV PRN ×2 (07:18→16:49)
--- NOTE | 2020-09-03 07:51 | NUR ---
pt. received on vent support via et tube with parameters below: AC 16 VT 380 FIO2 60% PEEP +8 Addendum: 09/03/20 at 0753 by ADELINA ALVARADO RT Amended: Links added.
[2020-09-03] MEDS: ZINC SULFATE 220 MG CAPSULE GT SCH (08:28)
[2020-09-03] MEDS: DICYCLOMINE HCL 10 MG/5 ML UDC GT SCH ×3 (08:28→17:07)
[2020-09-03] MEDS: LEVETIRACETAM SOL (5 ML) 100 MG/ML UDC GT SCH ×2 (08:28→22:43)
[2020-09-03] MEDS: MAGNESIUM OXIDE 400 MG TABLET GT SCH ×2 (08:28→16:14)
[2020-09-03] MEDS: PANTOPRAZOLE 40 MG/PACK PACK GT SCH (08:28)
[2020-09-03] MEDS: FOLIC ACID 1 MG TABLET GT SCH (08:28)
[2020-09-03] MEDS: MULTIVIT W/MINERALS 1 TAB TABLET GT SCH (08:28)
[2020-09-03] MEDS: ASCORBIC ACID 500 MG TABLET GT SCH (08:28)
[2020-09-03] MEDS: VITAMIN B COMP W-C 1 TAB TABLET GT SCH (08:29)
[2020-09-03] MEDS: METOPROLOL TARTRATE 25 MG TABLET GT SCH ×2 (08:29→17:07)
[2020-09-03] MEDS: GABAPENTIN 100 MG CAPSULE GT SCH ×3 (08:29→16:14)
[2020-09-03] MEDS: THIAMINE HCL 100 MG TABLET GT SCH (08:29)
[2020-09-03] MEDS: PROSOURCE / PROSTAT (PYXIS) 30 ML UDC GT SCH ×3 (08:30→16:14)
[2020-09-03] MEDS: TIMOLOL 0.25% SOL OPHTH 10 ML BOTTLE EACHEYE SCH ×2 (08:30→16:14)
[2020-09-03] MEDS: IV D5W 1,000 ML IV PRN (12:58)
--- NOTE | 2020-09-03 15:45 | NUR ---
SW received a call from patient's sister Vivian per Vivian patient has a DNR at [facility] in [place]. Vivian would like [facility] to request this information as patient is currently intubated and unable to sign medical release documentations. Plan: SW to follow-up with Medical Records to provide clarification on how to request these records.
--- NOTE | 2020-09-03 16:44 | NUR ---
JOVANNY spoke with Adair Collier RN, requesting for patient physician to request DNR documentation from [facility] [address] [place] [address] . Patient sister Vivian provided this information to this SW .
--- NOTE | 2020-09-03 18:37 | NUR ---
RN CLOSING NOTES NO SIGNIFICANT CHANGE NOTED. KEPT SEDATED. TOLERATING TUBE FEEDING WELL. KEPT CLEAN AND DRY. KEPT COMFORTABLE. REPOSITIONING WHEN ABLE DUE TO ISOLATION. WILL ENDORSE FOR CONTINUITY OF CARE.
--- NOTE | 2020-09-03 20:15 | NUR ---
RT NOTE PT RECEIVED INTUBATED WITH 7.5 ET TUBE @ 23 CM ON LEFT LIP LINE. CUFF INFLATED. AMBU BAG @ HOB. SX DONE, SMALL THICK SECRETIONS NOTED. ALARMS ON AND AUDIBLE. NO DISTRESS NOTED AT THIS TIME. WILL CONTINUE TO MONITOR CLOSELY. VENT PLUGGED TO RED OUTLET. Addendum: 09/03/20 at 2019 by KIKA SINGER RT Amended: Links added.
[2020-09-03] MEDS: LATANOPROST EYE DROP 0.005% 2.5 ML BOTTLE EACHEYE SCH (22:43)
[2020-09-03] MEDS ORDERED: IV NS 0.9% 1,000 ML IV ONE (23:00)
[2020-09-04] VITALS (25 sets, daily range): BP systolic 86–119; BP diastolic 35–68
[2020-09-04] MEDS: DILTIAZEM HCL 30 MG TABLET GT SCH ×3 (06:00→17:28)
--- NOTE | 2020-09-04 07:45 | NUR ---
RN OPENING NOTES RECEIVED PT INTUBATED, ON VENT PER SETTING ORDER TOLERATING WELL HOB ELEVATED. R SUBC TLC IN PLACE, NO S/S OF INFECTION OR INFILTRATION NOTES AT THIS TIME. PT ON DIPRIVAN @ 55 ML/HR, WILL TITRATE ACCORDINGLY. TOLERATING TUBE FEEDING WELL. THORPE IN PLACE AND DRAINING BY GRAVITY. NO HEMATURIA NOTED. BLE ELEVATED.SAFETY MEASUREMENTS ARE IMPLEMENTED PER HOSPITAL PROTOCOL. BED IS IN THE LOWEST POSITION, ON BRAKE, AND SIDE RAILS ARE UP X2. WILL CLOSELY MONITOR
[2020-09-04] MEDS: PANTOPRAZOLE 40 MG/PACK PACK GT SCH (07:50)
[2020-09-04] MEDS: PROPOFOL 100 ML IV PRN ×2 (07:51→17:09)
[2020-09-04] MEDS: THIAMINE HCL 100 MG TABLET GT SCH (08:06)
[2020-09-04] MEDS: MAGNESIUM OXIDE 400 MG TABLET GT SCH ×2 (08:06→17:01)
[2020-09-04] MEDS: TIMOLOL 0.25% SOL OPHTH 10 ML BOTTLE EACHEYE SCH ×2 (08:06→16:56)
[2020-09-04] MEDS: VITAMIN B COMP W-C 1 TAB TABLET GT SCH (08:06)
[2020-09-04] MEDS: DICYCLOMINE HCL 10 MG/5 ML UDC GT SCH ×3 (08:06→17:01)
[2020-09-04] MEDS: ZINC SULFATE 220 MG CAPSULE GT SCH (08:06)
[2020-09-04] MEDS: MULTIVIT W/MINERALS 1 TAB TABLET GT SCH (08:07)
[2020-09-04] MEDS: FOLIC ACID 1 MG TABLET GT SCH (08:07)
[2020-09-04] MEDS: LEVETIRACETAM SOL (5 ML) 100 MG/ML UDC GT SCH ×2 (08:07→20:41)
[2020-09-04] MEDS: GABAPENTIN 100 MG CAPSULE GT SCH ×3 (08:07→17:01)
[2020-09-04] MEDS: METOPROLOL TARTRATE 25 MG TABLET GT SCH ×2 (08:08→17:01)
[2020-09-04] MEDS: PROSOURCE / PROSTAT (PYXIS) 30 ML UDC GT SCH ×3 (08:28→17:02)
[2020-09-04] MEDS: ASCORBIC ACID 500 MG TABLET GT SCH (08:31)
--- NOTE | 2020-09-04 08:52 | NUR ---
vent changes below per dr. castillo: fio2 50% Addendum: 09/04/20 at 0853 by ADELINA ALVARADO RT Amended: Links added.
--- NOTE | 2020-09-04 08:55 | NUR ---
RN NOTES FIO2 CHANGED TO 50%
--- NOTE | 2020-09-04 09:00 | NUR ---
RN NOTES NO SEDATION VACATION PT GETS AGITATIVE
--- NOTE | 2020-09-04 11:36 | NUR ---
RN NOTES DIDNT ADMINISTER CARDIZEM DUE TO MEDICATION PROTOCOL HOLD IF SBP < 100 BP IS 89/49 HR IS 94
[2020-09-04] MEDS: IV D5W 1,000 ML IV PRN (13:54)
--- NOTE | 2020-09-04 17:28 | NUR ---
RN NOTES DIDN'T ADMINISTER CARDIZEM DUE TO MEDICATION PROTOCOL HOLD IF SBP < 100 BP IS 96/44 HR IS 81
--- NOTE | 2020-09-04 19:37 | NUR ---
RN CLOSING NOTES NO SIGNIFICANR CHANGES THROUGHOUT MY SHIFT. ON VENT PER SETTING ORDER TOLERATING WELL HOB ELEVATED. R SUBC TLC IN PLACE, NO S/S OF INFECTION OR INFILTRATION NOTES AT THIS TIME. PT ON DIPRIVAN @ 55 ML/HR, WILL TITRATE ACCORDINGLY. TOLERATING TUBE FEEDING WELL. THORPE IN PLACE AND DRAINING BY GRAVITY. NO HEMATURIA NOTED. BLE ELEVATED.SAFETY MEASUREMENTS ARE IMPLEMENTED PER HOSPITAL PROTOCOL. BED IS IN THE LOWEST POSITION, ON BRAKE, AND SIDE RAILS ARE UP X2. WILL ENDORSE TO PM NURSE FOR OWEN
--- NOTE | 2020-09-04 20:05 | NUR ---
RT NOTE PT RECEIVED INTUBATED WITH 7.5 ET TUBE @ 23 CM ON LEFT LIP LINE. CUFF INFLATED. AMBU BAG @ HOB. SX DONE, SMALL THICK SECRETIONS NOTED. ALARMS ON AND AUDIBLE. NO DISTRESS NOTED AT THIS TIME. WILL CONTINUE TO MONITOR CLOSELY. VENT PLUGGED TO RED OUTLET. Addendum: 09/04/20 at 2005 by ANNA SPEARS RT Amended: Links added.
[2020-09-04] MEDS: LATANOPROST EYE DROP 0.005% 2.5 ML BOTTLE EACHEYE SCH (22:07)
[2020-09-05] VITALS (36 sets, daily range): BP systolic 67–158; BP diastolic 33–107
[2020-09-05 05:16] LABS: CALCIUM, SERUM 10.7 mg/dL (8.5-10.1); CARBON DIOXIDE 31 mmol/L (21-32); CHLORIDE 104 mmol/L (98-107); CREATININE 0.6 mg/dL (0.6-1.3); GLUCOSE 107 mg/dL (74-106); MAGNESIUM 1.7 mg/dL (1.8-2.4); PHOSPHORUS 3.2 mg/dL (2.5-4.9); POTASSIUM 3.6 mmol/L (3.5-5.1); SERUM AMMONIA 43 umol/L (11-32); SODIUM SERUM 137 mmol/L (136-145); UREA NITROGEN, BLOOD 28 mg/dL (7-18)
[2020-09-05 05:26] LABS: ABG BASE EXCESS 3.4 mmol/L; ABG OXYGEN SATURATION 92.4 % (92.0-98.5); ABG PCO2 46.3 mmHg (35.0-45.0); ABG PH 7.408 (7.350-7.450); ABG PO2 69.1 mmHg (75.0-100.0); AaDO2 235.3 mmHg; COHb 0.7 % (0.5-1.5); MetHb 0.1 % (0.0-1.5); O2Hb 91.7 % (94.0-97.0); SITE, ABG Right Radial; VENT MODE, BG AC 16 380 50% +8
--- NOTE | 2020-09-05 05:30 | NUR ---
HOUSE DETECTIVE NOTES FIO2 TITRATED TO 70 % PER RT ANNA, SPO2 NOTED TO INCREASE TO 96%. WILL MONITOR CLOSELY
[2020-09-05] MEDS: DILTIAZEM HCL 30 MG TABLET GT SCH ×4 (06:00→18:00)
[2020-09-05] MEDS: PROPOFOL 100 ML IV PRN ×2 (06:22→16:00)
[2020-09-05] MEDS: PANTOPRAZOLE 40 MG/PACK PACK GT SCH (07:43)
--- NOTE | 2020-09-05 07:45 | NUR ---
RN OPENING NOTES RECEIVED PT SEDATED IN BED. ON VENT PER SETTING ORDER TOLERATING WELL HOB ELEVATED. R SUBC TLC IN PLACE, NO S/S OF INFECTION OR INFILTRATION NOTES AT THIS TIME. PT ON DIPRIVAN @ 55 ML/HR, WILL TITRATE ACCORDINGLY. TOLERATING TUBE FEEDING WELL. THORPE IN PLACE AND DRAINING BY GRAVITY. NO HEMATURIA NOTED. BLE ELEVATED.SAFETY MEASUREMENTS ARE IMPLEMENTED PER HOSPITAL PROTOCOL. BED IS IN THE LOWEST POSITION, ON BRAKE, AND SIDE RAILS ARE UP X2. WILL MONITOR Addendum: 09/05/20 at 0932 by RICK ROJO RN DEPRIVAN @10
--- NOTE | 2020-09-05 07:57 | NUR ---
WOUND CARE CONSULT: RE-EVALUATION OF SKIN REQUESTED BY RN. REVIEWED CHART, NURSING DOCUMENTATION AND PHOTOS WHICH INDICATE MULTIPLE SKIN ISSUES PRESENT ON ADMISSION. PT CURRENTLY FOLLOWED BY SURGICAL TEAM FOR WOUND/SKIN TREATMENT. DISCUSSED SKIN PROTECTION RECOMMENDATIONS WITH NURSING STAFF. PT IS ON [place] ISOFLEX LOW AIRLOSS BED. MD IN AGREEMENT WITH PLAN OF CARE.
[2020-09-05] MEDS: LEVETIRACETAM SOL (5 ML) 100 MG/ML UDC GT SCH ×2 (08:16→22:04)
[2020-09-05] MEDS: DICYCLOMINE HCL 10 MG/5 ML UDC GT SCH ×3 (08:16→16:32)
[2020-09-05] MEDS: GABAPENTIN 100 MG CAPSULE GT SCH ×3 (08:16→16:33)
[2020-09-05] MEDS: FOLIC ACID 1 MG TABLET GT SCH (08:16)
[2020-09-05] MEDS: VITAMIN B COMP W-C 1 TAB TABLET GT SCH (08:16)
[2020-09-05] MEDS: ZINC SULFATE 220 MG CAPSULE GT SCH (08:16)
[2020-09-05] MEDS: THIAMINE HCL 100 MG TABLET GT SCH (08:16)
[2020-09-05] MEDS: MAGNESIUM OXIDE 400 MG TABLET GT SCH ×2 (08:16→16:33)
[2020-09-05] MEDS: TIMOLOL 0.25% SOL OPHTH 10 ML BOTTLE EACHEYE SCH ×2 (08:17→16:23)
[2020-09-05] MEDS: MULTIVIT W/MINERALS 1 TAB TABLET GT SCH (08:17)
[2020-09-05] MEDS: METOPROLOL TARTRATE 25 MG TABLET GT SCH ×2 (08:18→16:24)
[2020-09-05] MEDS: PROSOURCE / PROSTAT (PYXIS) 30 ML UDC GT SCH ×3 (08:19→16:33)
[2020-09-05] MEDS: ASCORBIC ACID 500 MG TABLET GT SCH (08:36)
--- NOTE | 2020-09-05 09:00 | NUR ---
RN NOTES NO METOPROLOL ADMINISTERED DUE TO BP IS 89/43
--- NOTE | 2020-09-05 09:00 | NUR ---
RN NOTES PEEP CHANGED TO 5 WILL MONITOR TOLERATION
--- NOTE | 2020-09-05 09:00 | NUR ---
RN NOTES NO SEDATION VACATION PER DR JOHN TODAY
[2020-09-05] MEDS: IV NS 0.9% 1,000 ML IV PRN (10:40)
[2020-09-05] MEDS: Magnesium 1GM/D5W 100ML PREMIX 100 ML IV SCH ×2 (11:31→13:22)
--- NOTE | 2020-09-05 12:10 | NUR ---
RN NOTES BP IS 97/44 DIDN'T ADMINISTER CARDIZEM
[2020-09-05] MEDS: LACTULOSE 10 G/15 ML UDC (PYXIS) NG SCH ×2 (14:32→16:32)
[2020-09-05] MEDS: TWOCAL HN 1,000 ML LIQUID GT PRN (16:06)
--- NOTE | 2020-09-05 19:03 | NUR ---
RN CLOSING NOTES RECEIVED PT SEDATED IN BED. ON VENT PER SETTING ORDER TOLERATING WELL HOB ELEVATED. R SUBC TLC IN PLACE, NO S/S OF INFECTION OR INFILTRATION NOTES AT THIS TIME. PT ON DIPRIVAN @ 10 ML/HR, WILL TITRATE ACCORDINGLY. TOLERATING TUBE FEEDING WELL. THORPE IN PLACE AND DRAINING BY GRAVITY. NO HEMATURIA NOTED. BLE ELEVATED.SAFETY MEASUREMENTS ARE IMPLEMENTED PER HOSPITAL PROTOCOL. BED IS IN THE LOWEST POSITION, ON BRAKE, AND SIDE RAILS ARE UP X2. WILL ENDORSE TO PM SHIFT FOR OWEN
[2020-09-05] MEDS: NOREPINEPHRINE 8 MG in IV NS 0.9% 242 ML IV PRN (20:12)
--- NOTE | 2020-09-05 20:36 | NUR ---
PT REC'D ORALLY INTUBATED VIA ETT 7.5 SECURED @ 23 CM [facility] WITH THE SETTINGS OF AC 16, 380, 60%,PEEP 5. NO RESPIRATORY DISTRESS NOTED AT THIS TIME. SX DONE. ALARMS ARE SET AND AUDIBLE. VENT PLUGGED INTO RED OUTLET. AMBU BAG@ BEDSIDE. WILL CONTINUE TO MONITOR T/O THE SHIFT.
[2020-09-05] MEDS: LATANOPROST EYE DROP 0.005% 2.5 ML BOTTLE EACHEYE SCH (21:58)
[2020-09-06] VITALS (53 sets, daily range): BP systolic 85–133; BP diastolic 39–81
--- NOTE | 2020-09-06 | NUR ---
RN NOTE PT NPO AT THIS TIME
[2020-09-06] MEDS: DILTIAZEM HCL 30 MG TABLET GT SCH ×2 (00:42→06:28)
[2020-09-06 05:21] LABS: BASOPHILS % (AUTO) 0.5 % (0.0-2.0); EOSINOPHILS % (AUTO) 5.1 % (0.0-6.0); HEMATOCRIT 44 % (33-45); HEMOGLOBIN 14.8 g/dL (11.5-14.8); LYMPHOCYTES # (AUTO) 0.8 /CMM (0.8-4.8); LYMPHOCYTES % (AUTO) 8.2 % (20.0-44.0); MEAN CORPUSCULAR HGB CONC 34 g/dl (31.0-36.0); MEAN CORPUSCULAR VOLUME 93 fL (82-100); MONOCYTES # (AUTO) 0.6 /CMM (0.1-1.30); MONOCYTES % (AUTO) 5.8 % (2.0-12.0); NEUTROPHILS # (AUTO) 7.7 /CMM (1.8-8.9); NEUTROPHILS % (AUTO) 80.4 % (43.0-81.0); PLATELET COUNT (AUTO) 174 /CMM (150-450); RED BLOOD CELL COUNT(AUTO) 4.73 MIL/uL (4.0-5.2); WHITE BLOOD COUNT (AUTO) 9.6 K/uL (4.3-11.0)
[2020-09-06 05:54] LABS: ABG BASE EXCESS 0.5 mmol/L; ABG OXYGEN SATURATION 94.7 % (92.0-98.5); ABG PCO2 43.6 mmHg (35.0-45.0); ABG PH 7.389 (7.350-7.450); ABG PO2 76.9 mmHg (75.0-100.0); AaDO2 302.9 mmHg; COHb 1.2 % (0.5-1.5); O2Hb 93.6 % (94.0-97.0); PEEP,BG 5 cm H2O; SITE, ABG Left Radial; VT, ABG 380 mL
--- NOTE | 2020-09-06 06:53 | NUR ---
RN NOTE SURGERY NURSE CALLED PT WILL BE PICKED UP AT 1300. SURGERY NURSE WILL INFORM IF ANY CHANGES IN SCHEDULE
[2020-09-06] MEDS: NOREPINEPHRINE 8 MG in IV NS 0.9% 242 ML IV PRN (07:10)
[2020-09-06] MEDS ORDERED: PHENYLEPHRINE 100 MG in IV NS 0.9% 240 ML IV PRN (07:30)
--- NOTE | 2020-09-06 07:59 | NUR ---
Per Dr. Derrick BYRD levophed and run KIRILL starting at 0.5mcg/kg/min to titrate up to 3
[2020-09-06] MEDS: Magnesium 1GM/D5W 100ML PREMIX 100 ML IV SCH ×2 (08:41→08:47)
[2020-09-06] MEDS: DIGOXIN INJ 0.5 MG/2 ML AMPUL IV SCH ×3 (08:47→17:27)
[2020-09-06] MEDS: HYDROCORTISONE SOD SUCCINATE 100 MG/2 ML VIAL IV SCH ×5 (08:47→23:13)
[2020-09-06] MEDS: PANTOPRAZOLE 40 MG/PACK PACK GT SCH (08:47)
[2020-09-06] MEDS: PROPOFOL 100 ML IV PRN ×2 (08:50→18:20)
[2020-09-06] MEDS: TIMOLOL 0.25% SOL OPHTH 10 ML BOTTLE EACHEYE SCH ×2 (08:56→17:21)
[2020-09-06] MEDS: LEVETIRACETAM SOL (5 ML) 100 MG/ML UDC GT SCH ×2 (09:16→23:10)
[2020-09-06] MEDS: MULTIVIT W/MINERALS 1 TAB TABLET GT SCH (09:16)
[2020-09-06] MEDS: DICYCLOMINE HCL 10 MG/5 ML UDC GT SCH ×3 (09:16→17:27)
[2020-09-06] MEDS: THIAMINE HCL 100 MG TABLET GT SCH (09:16)
[2020-09-06] MEDS: GABAPENTIN 100 MG CAPSULE GT SCH ×3 (09:17→17:28)
[2020-09-06] MEDS: ASCORBIC ACID 500 MG TABLET GT SCH (09:17)
[2020-09-06] MEDS: ZINC SULFATE 220 MG CAPSULE GT SCH (09:17)
[2020-09-06] MEDS: LACTULOSE 10 G/15 ML UDC (PYXIS) NG SCH ×2 (09:17→17:28)
[2020-09-06] MEDS: MAGNESIUM OXIDE 400 MG TABLET GT SCH ×2 (09:17→17:29)
[2020-09-06] MEDS: FOLIC ACID 1 MG TABLET GT SCH (09:17)
[2020-09-06] MEDS: PROSOURCE / PROSTAT (PYXIS) 30 ML UDC GT SCH ×3 (09:28→17:29)
[2020-09-06] MEDS: VITAMIN B COMP W-C 1 TAB TABLET GT SCH (09:28)
--- NOTE | 2020-09-06 09:58 | NUR ---
sohan running at 0.8 BP 98/58. patient waking up so propofol increased to 30
[2020-09-06] MEDS ORDERED: MEROPENEM 500 MG in IV NS 0.9% 50 ML IV SCH (13:00)
[2020-09-06] MEDS ORDERED: CELLULOSE,OXIDIZED 1 PKT EACH MC ONE (14:22)
[2020-09-06] MEDS ORDERED: ROCURONIUM BROMIDE 50 MG/5 ML ONE (14:36)
[2020-09-06] MEDS ORDERED: MIDAZOLAM HCL 2 MG/2ML VIAL ONE (14:37)
--- NOTE | 2020-09-06 14:40 | NUR ---
patient to go for tracheostomy
[2020-09-06] MEDS ORDERED: CLINDAMYCIN 900 MG/6 ML VIAL ONE (15:15)
--- NOTE | 2020-09-06 15:55 | NUR ---
patient back from surgery. trach in place, setting at [id number] AC16 Fi02 50% peep5
--- NOTE | 2020-09-06 15:58 | NUR ---
Shiadis 8 trach placed
[2020-09-06] MEDS: MEROPENEM 1 G in IV NS 0.9% 100 ML IV SCH (16:18)
[2020-09-06] MEDS: PHENYLEPHRINE 100 MG in IV NS 0.9% 240 ML IV PRN ×2 (16:34→23:20)
[2020-09-06] MEDS: VANCOMYCIN 1.25 GM in IV D5W 250 ML IV SCH (16:40)
--- NOTE | 2020-09-06 17:54 | NUR ---
surgery removed patients OG tube. tried placing NG tube but was unsuccessful twice, will have another nurse try
--- NOTE | 2020-09-06 19:05 | NUR ---
gave report to night nurse
--- NOTE | 2020-09-06 21:34 | NUR ---
RT NOTE PT RECEIVED TRACHED ON MECHANICAL VENTILATION. SHILEY [address] SX DONE, MODERATE THICK BLOODY RED SECRETIONS NOTED. ALARMS ON AND AUDIBLE. NO DISTRESS NOTED. VENT PLUGGED TO RED OUTLET. NO DISTRESS NOTED. WILL MONITOR T/O SHIFT. Addendum: 09/06/20 at 2140 by KIKA SINGER RT Amended: Links added.
[2020-09-06] MEDS: LATANOPROST EYE DROP 0.005% 2.5 ML BOTTLE EACHEYE SCH (22:00)
[2020-09-07] VITALS (84 sets, daily range): BP systolic 58–149; BP diastolic 23–90
--- NOTE | 2020-09-07 | NUR ---
CORRUGATOR. REMAINING SAME VENT SETTING TOLERATED WELL. SAT 98%. [place] HAND AND ALL BODY OOZING. RT NARE NGT PLACED. RESUME FEEDING, FC PATENT. FLEXA SEAL INTACT.WILL CONTINUE TO MONITOR
[2020-09-07] MEDS: MEROPENEM 1 G in IV NS 0.9% 100 ML IV SCH ×2 (04:22→13:28)
[2020-09-07] MEDS: HYDROCORTISONE SOD SUCCINATE 100 MG/2 ML VIAL IV SCH ×5 (04:23→21:24)
[2020-09-07 04:35] LABS: BASOPHILS # (AUTO) 0.1 /CMM (0.0-0.2); BASOPHILS % (AUTO) 0.7 % (0.0-2.0); EOSINOPHILS % (AUTO) 1.6 % (0.0-6.0); HEMATOCRIT 33 % (33-45); LYMPHOCYTES # (AUTO) 1.3 /CMM (0.8-4.8); LYMPHOCYTES % (AUTO) 10.1 % (20.0-44.0); MEAN CORPUSCULAR HGB CONC 33 g/dl (31.0-36.0); MEAN CORPUSCULAR VOLUME 92 fL (82-100); MONOCYTES % (AUTO) 7.6 % (2.0-12.0); NEUTROPHILS # (AUTO) 10.4 /CMM (1.8-8.9); PLATELET COUNT (AUTO) 302 /CMM (150-450); RED BLOOD CELL COUNT(AUTO) 3.62 MIL/uL (4.0-5.2)
[2020-09-07 04:44] LABS: CALCIUM, SERUM 10.8 mg/dL (8.5-10.1); CREATININE 0.6 mg/dL (0.6-1.3); POTASSIUM 3.3 mmol/L (3.5-5.1)
[2020-09-07] MEDS: PANTOPRAZOLE 40 MG/PACK PACK GT SCH (07:30)
[2020-09-07] MEDS: PROPOFOL 100 ML IV PRN ×5 (08:51→21:34)
[2020-09-07] MEDS: TIMOLOL 0.25% SOL OPHTH 10 ML BOTTLE EACHEYE SCH ×2 (09:00→17:02)
[2020-09-07] MEDS: PROSOURCE / PROSTAT (PYXIS) 30 ML UDC GT SCH ×3 (09:00→16:13)
[2020-09-07] MEDS: DICYCLOMINE HCL 10 MG/5 ML UDC GT SCH ×3 (09:00→16:13)
[2020-09-07] MEDS ORDERED: POTASSIUM CHLORIDE 20 MEQ POWDER PACKET NG SCH (10:00)
[2020-09-07] MEDS: LEVETIRACETAM SOL (5 ML) 100 MG/ML UDC GT SCH ×2 (10:10→21:24)
[2020-09-07] MEDS: VITAMIN B COMP W-C 1 TAB TABLET GT SCH (10:10)
[2020-09-07] MEDS: MULTIVIT W/MINERALS 1 TAB TABLET GT SCH (10:10)
[2020-09-07] MEDS: THIAMINE HCL 100 MG TABLET GT SCH (10:10)
[2020-09-07] MEDS: FOLIC ACID 1 MG TABLET GT SCH (10:11)
[2020-09-07] MEDS: LACTULOSE 10 G/15 ML UDC (PYXIS) NG SCH ×2 (10:11→16:13)
[2020-09-07] MEDS: ZINC SULFATE 220 MG CAPSULE GT SCH (10:11)
[2020-09-07] MEDS: MAGNESIUM OXIDE 400 MG TABLET GT SCH ×2 (10:12→16:13)
[2020-09-07] MEDS: GABAPENTIN 100 MG CAPSULE GT SCH ×3 (10:12→16:13)
[2020-09-07] MEDS: ASCORBIC ACID 500 MG TABLET GT SCH (10:14)
[2020-09-07] MEDS: TWOCAL HN 1,000 ML LIQUID GT PRN (10:30)
[2020-09-07] MEDS: VANCOMYCIN 1.25 GM in IV D5W 250 ML IV SCH (16:08)
[2020-09-07] MEDS: PHENYLEPHRINE 100 MG in IV NS 0.9% 240 ML IV PRN ×2 (18:38→21:34)
--- NOTE | 2020-09-07 19:10 | NUR ---
ICU/ELECTRONIC EQUIPMENT TRADES WORKER came in to find the sohan at 0.2, however the icu protocol for sohan is 0.5 to start and increase 0.5 every 15 minutes to a max dose of 3mcg. notified charge nurse who then increased this per our protocol.
--- NOTE | 2020-09-07 19:45 | NUR ---
ICU/MEDICAL REFERRAL COORDINATOR RECEIVED REPORT FROM DAY SHIFT NURSE, SEE FLOW SHEET FOR ASSESSMENT AND SKIN ISSUES ALONG WITH THE INTERVENTION TO THESE. PT WAS TURNED AND REPOSTIONED FOR COMFORT AND CARE
--- NOTE | 2020-09-07 20:08 | NUR ---
ICU/BOATBUILDER WOOD KIRILL WAS INCREASED BY CHARGE NURSE RN FOR LOW BP, WILL MONITOR PT'S BP.
[2020-09-07] MEDS: LATANOPROST EYE DROP 0.005% 2.5 ML BOTTLE EACHEYE SCH (22:25)
[2020-09-08] VITALS (36 sets, daily range): BP systolic 63–137; BP diastolic 32–79
[2020-09-08] MEDS: MEROPENEM 1 G in IV NS 0.9% 100 ML IV SCH ×2 (01:00→13:26)
[2020-09-08] MEDS: PROPOFOL 100 ML IV PRN ×4 (01:41→21:59)
[2020-09-08] MEDS: PHENYLEPHRINE 100 MG in IV NS 0.9% 240 ML IV PRN ×2 (04:18→10:32)
[2020-09-08] MEDS: HYDROCORTISONE SOD SUCCINATE 100 MG/2 ML VIAL IV SCH ×3 (05:14→21:04)
[2020-09-08 05:41] LABS: CALCIUM, SERUM 10.8 mg/dL (8.5-10.1); CREATININE 0.8 mg/dL (0.6-1.3); POTASSIUM 3.5 mmol/L (3.5-5.1)
--- NOTE | 2020-09-08 07:15 | NUR ---
POLYSOMNOGRAPHY TECHNICIAN OPENING NOTE RECEIVED PT IN BED. SEDATED. ON MECHANICAL VENTILATION, SHILEY :8, AC: 16, TV: 380, FIO2: 60% PEEP: 5. TOLERATING VENT SETTINGS WELL. R NARRacquel NGT, CHECKED FOR PLACEMENT. TWOCAL FEEDING RUNNING @20MLS/HR. TOLERATING FEEDING WELL. R SUBCLAVIAN PICC INTACT AND PATENT. DANTE @30MCG. NS @TKO. KIRILL @2.5 MCG. SAFETY MEASURES OBSERVED. CALL LIGHT WITHIN REACH. BED LOCKED AND AT LOWEST POSITION. WILL CONTINUE TO MONITOR
[2020-09-08] MEDS ORDERED: IV NS 0.9% 1,000 ML IV PRN (08:00)
[2020-09-08] MEDS: TIMOLOL 0.25% SOL OPHTH 10 ML BOTTLE EACHEYE SCH ×2 (09:43→17:00)
[2020-09-08] MEDS: ASCORBIC ACID 500 MG TABLET GT SCH (09:44)
[2020-09-08] MEDS: VITAMIN B COMP W-C 1 TAB TABLET GT SCH (09:44)
[2020-09-08] MEDS: ZINC SULFATE 220 MG CAPSULE GT SCH (09:44)
[2020-09-08] MEDS: MAGNESIUM OXIDE 400 MG TABLET GT SCH ×2 (09:44→17:00)
[2020-09-08] MEDS: LACTULOSE 10 G/15 ML UDC (PYXIS) NG SCH ×2 (09:44→17:00)
[2020-09-08] MEDS: LEVETIRACETAM SOL (5 ML) 100 MG/ML UDC GT SCH ×2 (09:44→21:04)
[2020-09-08] MEDS: GABAPENTIN 100 MG CAPSULE GT SCH ×3 (09:44→17:00)
[2020-09-08] MEDS: FOLIC ACID 1 MG TABLET GT SCH (09:44)
[2020-09-08] MEDS: PANTOPRAZOLE 40 MG/PACK PACK GT SCH (09:44)
[2020-09-08] MEDS: DICYCLOMINE HCL 10 MG/5 ML UDC GT SCH ×3 (09:44→17:00)
[2020-09-08] MEDS: THIAMINE HCL 100 MG TABLET GT SCH (09:44)
[2020-09-08] MEDS: MULTIVIT W/MINERALS 1 TAB TABLET GT SCH (09:44)
[2020-09-08] MEDS: PROSOURCE / PROSTAT (PYXIS) 30 ML UDC GT SCH ×3 (09:46→17:00)
[2020-09-08] MEDS: IV NS 0.9% 1,000 ML IV PRN ×2 (10:26→19:08)
[2020-09-08] MEDS: VANCOMYCIN 1.25 GM in IV D5W 250 ML IV SCH (15:00)
--- NOTE | 2020-09-08 17:55 | NUR ---
BRUSH FABRICATION SUPERVISOR OVERFLOW RECEIVED PATIENT IN BED FROM ICU, REPORT FROM PAOLA WHEELER RN, ON VEENT SHILEY 8, AC 16, TV 380, FIO2 55%, PEEP 5, TOELRATING WELL O2 >90%, TELE A FIB HR 110S, R NARE NG, THORPE 500 ML OUT FOR THE DAY, FLEXSEAL 400ML OUT, R SUBCLAVIAN PICC CLEAN DRY INTACT FLUSHES WELL, DIPRIVAN 40MCG/KG/MIN, NS 2OO ML/HR, KIRILL 2.5MCG/KG/MIN, BED IN LOWEST LOCKED POSITION, CALL LIGHT WITHIN REACH, WILL CONTINUE TO MONITOR.
--- NOTE | 2020-09-08 18:00 | NUR ---
LOG PREPARER NOTE TRANSFERRED PT TO [facility] ROOM 104. REPORT GIVEN TO JOHN MIRANDA FOR OWEN
--- NOTE | 2020-09-08 19:30 | NUR ---
QUILLER RUNNER OVERFLOW ENDORSED CARE TO MACHINE SORTER, NO CHANGES SINCE 1754 NOTE.
--- NOTE | 2020-09-08 19:56 | NUR ---
ICU-OF/ANIMAL CARE WORKER PER DR. SANDIE SPARKS TO DC CVP MONITORING.
[2020-09-08] MEDS: LATANOPROST EYE DROP 0.005% 2.5 ML BOTTLE EACHEYE SCH (21:05)
[2020-09-09] VITALS (23 sets, daily range): BP systolic 74–119; BP diastolic 43–67
[2020-09-09] MEDS: PROPOFOL 100 ML IV PRN ×3 (00:26→15:10)
[2020-09-09] MEDS: MEROPENEM 1 G in IV NS 0.9% 100 ML IV SCH ×2 (01:04→13:05)
[2020-09-09] MEDS: PHENYLEPHRINE 100 MG in IV NS 0.9% 240 ML IV PRN (01:55)
[2020-09-09] MEDS: HYDROCORTISONE SOD SUCCINATE 100 MG/2 ML VIAL IV SCH ×3 (04:17→21:23)
[2020-09-09 07:16] LABS: CALCIUM, SERUM 10.6 mg/dL (8.5-10.1); CREATININE 0.6 mg/dL (0.6-1.3); POTASSIUM 3.1 mmol/L (3.5-5.1)
--- NOTE | 2020-09-09 07:30 | NUR ---
KAPOK MACHINE OPERATOR OVERFLOW RECEIVED PATIENT IN BED FROM ICU, REPORT FROM PAOLA WHEELER RN, ON VEENT SHILEY 8, AC 16, TV 380, FIO2 55%, PEEP 5, TOELRATING WELL O2 >90%, TELE A FIB HR 110S, R NARE NG, THORPE 500 ML OUT FOR THE DAY, FLEXSEAL 400ML OUT, R SUBCLAVIAN PICC CLEAN DRY INTACT FLUSHES WELL, DIPRIVAN 40MCG/KG/MIN, NS TKO, KIRILL 0.5MCG/KG/MIN, BED IN LOWEST LOCKED POSITION, CALL LIGHT WITHIN REACH, WILL CONTINUE TO MONITOR.
[2020-09-09] MEDS: THIAMINE HCL 100 MG TABLET GT SCH (08:07)
[2020-09-09] MEDS: MAGNESIUM OXIDE 400 MG TABLET GT SCH ×2 (08:07→17:19)
[2020-09-09] MEDS: ASCORBIC ACID 500 MG TABLET GT SCH (08:07)
[2020-09-09] MEDS: MULTIVIT W/MINERALS 1 TAB TABLET GT SCH (08:07)
[2020-09-09] MEDS: VITAMIN B COMP W-C 1 TAB TABLET GT SCH (08:07)
[2020-09-09] MEDS: ZINC SULFATE 220 MG CAPSULE GT SCH (08:07)
[2020-09-09] MEDS: LEVETIRACETAM SOL (5 ML) 100 MG/ML UDC GT SCH ×2 (08:08→21:23)
[2020-09-09] MEDS: LACTULOSE 10 G/15 ML UDC (PYXIS) NG SCH ×2 (08:08→17:19)
[2020-09-09] MEDS: FOLIC ACID 1 MG TABLET GT SCH (08:08)
[2020-09-09] MEDS: PANTOPRAZOLE 40 MG/PACK PACK GT SCH (08:08)
[2020-09-09] MEDS: GABAPENTIN 100 MG CAPSULE GT SCH ×3 (08:08→17:19)
[2020-09-09] MEDS: PROSOURCE / PROSTAT (PYXIS) 30 ML UDC GT SCH ×3 (08:09→17:19)
[2020-09-09] MEDS: DICYCLOMINE HCL 10 MG/5 ML UDC GT SCH ×3 (08:10→17:20)
[2020-09-09] MEDS: TIMOLOL 0.25% SOL OPHTH 10 ML BOTTLE EACHEYE SCH ×2 (08:10→17:20)
--- NOTE | 2020-09-09 11:37 | NUR ---
fio2 increased to 60% due to 86% spo2. Addendum: 09/09/20 at 1137 by ADELINA ALVARADO RT Amended: Links added.
[2020-09-09] MEDS ORDERED: POTASSIUM CHLORIDE 20 MEQ POWDER PACKET GT ONE (12:30)
--- NOTE | 2020-09-09 13:59 | NUR ---
MANAGER PROFESSIONAL DEVELOPMENT OVERFLOW MARIA E THE ICU CHARGE NURSE MADE ROUNDS AND SAID TO DECREASE PROPOFOL DRIP TO 20MCG/KG/HR, HE IS MONITORING TO ENSURE THE PATIENT TOLERATES WELL AND SAID IT IS OK THAT THE BLOOD PRESSURE IS 88/50 AND TO CONTINUE WITH THE KIRILL OFF.
[2020-09-09] MEDS: TWOCAL HN 1,000 ML LIQUID GT PRN (15:06)
[2020-09-09] MEDS: VANCOMYCIN 1.25 GM in IV D5W 250 ML IV SCH (15:16)
--- NOTE | 2020-09-09 16:45 | NUR ---
RUBEN CRAMER SPOKE TO LEE ANN HOOPER THE ELECTRONIC DESIGN ENGINEER AND WAS TOLD PATIENT WILL HAVE PEG TUBE PLACEMENT IN THE MORNING SO TO MAKE THE PATIENT NPO AFTER MIDNIGHT AND TO HOLD ELIQUIS.
--- NOTE | 2020-09-09 19:30 | NUR ---
AERIAL TRAM OPERATOR OVERFLOW RECEIVED PATIENT IN BED FROM ICU, REPORT FROM PAOLA WHEELER RN, ON VEENT SHILEY 8, AC 16, TV 39 0, FIO2 55%, PEEP 5, TOELRATING WELL O2 >90%, TELE A FIB HR 110S, R FELIPE GIBSON, THORPE 500 ML OUT FOR THE DAY, FLEXSEAL 400ML OUT, R SUBCLAVIAN PICC CLEAN DRY INTACT FLUSHES WELL, DIPRIVAN 40MCG/KG/MIN, NS TKO, KIRILL 0.5MCG/KG/MIN, BED IN LOWEST LOCKED POSITION, CALL LIGHT WITHIN REACH, WILL CONTINUE TO MONITOR. Addendum: 09/09/20 at 1958 by DELLA DIAZ RN AERIAL TRAM OPERATOR OVERFLOW RECEIVED PATIENT IN BED FROM ICU, REPORT FROM PAOLA WHEELER RN, ON VEENT SHILEY 8, AC 16, TV 390, FIO2 60%, PEEP 5, TOELRATING WELL O2 >90%, TELE A FIB, R FELIPE GIBSON, FLEXSEAL IN PLACE, R SUBCLAVIAN PICC CLEAN DRY INTACT FLUSHES WELL, NO PROPOFOL RUNNING TOLERATING WELL, NS TKO, KIRILL 0.1MCG/KG/MIN, BED IN LOWEST LOCKED POSITION, CALL LIGHT WITHIN REACH.
--- NOTE | 2020-09-09 20:00 | NUR ---
RN OPENING NOTES ICU OVERFLOW. RECEIVED PATIENT IN BED, A/OO X0 VENT SHILEY 8, AC 16, TV 390, FIO2 60%, PEEP 5, TOLERATING WELL O2 >90%, TELE CONTROLLED A FIB, PT BASELINE HX. HR OF 90S. R NARE NG, FLUSHED RESIDUAL CHECK NONE. AUSCULTATED TO CONFIRM PLACEMENT. RECTAL TUBE PRESENT. IN PLACE, R SUBCLAVIAN PICC TLC CLEAN, 2 PORTS PATENT FLUSHED ASEPTICALLY, 1 PORT CLOGGED/OCCLUDED AND NOW CLAMPED. KIRILL RUNNING AT 0.1 WILL TITRATE PER PROTOCOL. PT SEBASTIAN WNL OF PARAMETERS TO KEEP SBP ABOVE 90. SAFETY MEASURES IN PLACE. HOB ELEVATED. BED LOCKED IN LOWEST LOCKED POSITION, WILL CONT TO MONITOR CLOSELY
--- NOTE | 2020-09-09 20:19 | NUR ---
RT NOTE PT RECEIVED TRACHED ON MECHANICAL VENTILATION. SHILEY [address] SX DONE, MODERATE THICK BLOODY RED SECRETIONS NOTED. ALARMS ON AND AUDIBLE. NO DISTRESS NOTED. VENT PLUGGED TO RED OUTLET. NO DISTRESS NOTED. WILL MONITOR T/O SHIFT. Addendum: 09/09/20 at 2019 by ANNA SPEARS RT Amended: Links added.
--- NOTE | 2020-09-09 20:30 | NUR ---
PT NOTED TO HAVE DRIED BLOODY SECRETIONS, MINIMAL FRESH SECRETIONS. TRACH COLLAR SOILED, CALLED RT WHO CHANGED COLLAR, CLEANED. WILL CONTINUE TO MONITOR. CLOSELY.
[2020-09-09] MEDS: LATANOPROST EYE DROP 0.005% 2.5 ML BOTTLE EACHEYE SCH (21:24)
[2020-09-10] VITALS (20 sets, daily range): BP systolic 96–123; BP diastolic 47–72
[2020-09-10] MEDS: MEROPENEM 1 G in IV NS 0.9% 100 ML IV SCH ×2 (02:06→14:11)
[2020-09-10] MEDS: HYDROCORTISONE SOD SUCCINATE 100 MG/2 ML VIAL IV SCH ×3 (05:16→21:28)
[2020-09-10 06:44] LABS: BASOPHILS % (AUTO) 0.3 % (0.0-2.0); EOSINOPHILS % (AUTO) 0.1 % (0.0-6.0); HEMATOCRIT 37 % (33-45); HEMOGLOBIN 11.8 g/dL (11.5-14.8); LYMPHOCYTES # (AUTO) 1.1 /CMM (0.8-4.8); LYMPHOCYTES % (AUTO) 7.6 % (20.0-44.0); MEAN CORPUSCULAR HGB CONC 32 g/dl (31.0-36.0); MEAN CORPUSCULAR VOLUME 95 fL (82-100); MONOCYTES # (AUTO) 0.9 /CMM (0.1-1.30); MONOCYTES % (AUTO) 6.5 % (2.0-12.0); NEUTROPHILS % (AUTO) 85.5 % (43.0-81.0); PLATELET COUNT (AUTO) 378 /CMM (150-450); RED BLOOD CELL COUNT(AUTO) 3.89 MIL/uL (4.0-5.2); WHITE BLOOD COUNT (AUTO) 14.1 K/uL (4.3-11.0)
[2020-09-10 06:57] LABS: CALCIUM, SERUM 11.6 mg/dL (8.5-10.1); CARBON DIOXIDE 27 mmol/L (21-32); CHLORIDE 108 mmol/L (98-107); CREATININE 0.7 mg/dL (0.6-1.3); GLUCOSE 127 mg/dL (74-106); POTASSIUM 3.5 mmol/L (3.5-5.1); SODIUM SERUM 140 mmol/L (136-145); UREA NITROGEN, BLOOD 39 mg/dL (7-18)
[2020-09-10] MEDS: PANTOPRAZOLE 40 MG/PACK PACK GT SCH (07:30)
--- NOTE | 2020-09-10 07:45 | NUR ---
RN OPENING NOTES PATIENT PRESENT IN BED, A/OX0, ON VENT SETTINGS, TOLERATING WELL, NO DISTRESS NOTED, SPOP2 IS 96% AT THIS TIME, NPO STATUS NOTED, ON A-FIB ON TELE-MONITOR, THORPE CATH IN PLACE, DRAINING DARK YELLOW URINE BY GRAVITY, GENERALIZED EDEMA PRESENT, NG TUBE IN PLACE, CLAMPED, AUSCULTATED FOR PLACEMENT, R SUBCLAVIAN TLC IN PLACE, INTACT, FLUSHED AND PATENT, HOB ELEVATED, SAFETY MEASURES IN PLACE, WILL CONT TO MONITOR CLOSELY
[2020-09-10] MEDS: DICYCLOMINE HCL 10 MG/5 ML UDC GT SCH ×3 (08:01→16:55)
[2020-09-10] MEDS: LEVETIRACETAM SOL (5 ML) 100 MG/ML UDC GT SCH ×2 (08:02→21:28)
[2020-09-10] MEDS: MULTIVIT W/MINERALS 1 TAB TABLET GT SCH (08:02)
[2020-09-10] MEDS: GABAPENTIN 100 MG CAPSULE GT SCH ×3 (08:02→16:55)
[2020-09-10] MEDS: VITAMIN B COMP W-C 1 TAB TABLET GT SCH (08:02)
[2020-09-10] MEDS: MAGNESIUM OXIDE 400 MG TABLET GT SCH ×2 (08:02→16:55)
[2020-09-10] MEDS: FOLIC ACID 1 MG TABLET GT SCH (08:02)
[2020-09-10] MEDS: PROSOURCE / PROSTAT (PYXIS) 30 ML UDC GT SCH ×3 (08:02→16:56)
[2020-09-10] MEDS: THIAMINE HCL 100 MG TABLET GT SCH (08:03)
[2020-09-10] MEDS: ASCORBIC ACID 500 MG TABLET GT SCH (08:03)
[2020-09-10] MEDS: ZINC SULFATE 220 MG CAPSULE GT SCH (08:04)
[2020-09-10] MEDS: LACTULOSE 10 G/15 ML UDC (PYXIS) NG SCH ×2 (08:04→16:56)
--- NOTE | 2020-09-10 09:00 | NUR ---
No sedation vacation today, patient's FIO2 is high 80-100% Addendum: 09/10/20 at 1526 by Aaliyah Cox RN disregard, wrong patient
[2020-09-10] MEDS: TIMOLOL 0.25% SOL OPHTH 10 ML BOTTLE EACHEYE SCH ×2 (09:09→16:57)
[2020-09-10 09:56] LABS: ABG BASE EXCESS -3.7 mmol/L; ABG OXYGEN SATURATION 91.6 % (92.0-98.5); ABG PCO2 47.6 mmHg (35.0-45.0); ABG PO2 69.5 mmHg (75.0-100.0); AaDO2 450.9 mmHg; COHb 0.3 % (0.5-1.5); MetHb 0.2 % (0.0-1.5); O2Hb 91.1 % (94.0-97.0); PEEP,BG 8 cm H2O; SITE, ABG Right Radial; VT, ABG 380 mL
[2020-09-10 09:59] LABS: BAND % (MANUAL) 4 % (0.0-5.0); LYMPHOCYTES % (MANUAL) 8 % (16-48); MONOCYTES % (MANUAL) 8 % (0-11.0); NEUTROPHILS % (MANUAL) 80 (42-76)
--- NOTE | 2020-09-10 10:00 | NUR ---
Per Dr Del Cid, cannot perform PEG tube placement, if patient cannot tolerate vent settings less than 50-60% of FIO2, surgical team is aware, procedure postponed
--- NOTE | 2020-09-10 12:00 | NUR ---
transferred to room 252
--- NOTE | 2020-09-10 18:55 | NUR ---
RN CLOSING NOTES PATIENT IS STABLE, TOLERATING SETTINGS WELL, KEPT CLEAN AND DRY, MEDIATIONS GIVEN,SAFETY MEASURES IMPLEMENTED, WILL ENDORSE TO PM SHIFT RN FOR OWEN
[2020-09-10] MEDS: VANCOMYCIN 1.25 GM in IV D5W 250 ML IV SCH (19:10)
--- NOTE | 2020-09-10 19:30 | NUR ---
GROUP SOCIAL WORKER RCD PT W/DX COVID PNA. PT W/[place]; AFIB ON MONITOR. PT OBTUNDED. BUE SKIN TEARS WITH WEEPING. RSC TLC WITHOUT BLOOD RETURN. NPO W/RIGHT NARE NG TUBE IN PLACE. PER REPORT PT TO BE MAINAINED NPO FOR POSSIBLE PEG PLACEMENT.
--- NOTE | 2020-09-10 20:00 | NUR ---
LEAD SOFTWARE TEST ENGINEER RENDERED WOUND TREATMENT TO PT; LEFT ARM DRESSING SOAKED AT THIS TIME; REPLACED PER ORDER. NO DRESSING IN SACRUM NOTED; PT WITH LEAKING THORPE URINE NOTED TO LEGS AND BACK AREA WITH EXTENSIVE RAW AND EXCORIATION TO SACRAL TO INNER THIGH AREA. PROVIDED SKIN CARE. NO OIL EMULSION AVAILABLE AT THIS TIME. APPLIED Z GUARD AT THIS TIME. CONTINUE SKIN CARE AND TURN PT Q2HRS.
[2020-09-10] MEDS: LATANOPROST EYE DROP 0.005% 2.5 ML BOTTLE EACHEYE SCH (21:29)
--- NOTE | 2020-09-10 21:30 | NUR ---
WIRE TAPER ORDER PER ID TO REMOVE MIDLINE AND SEND TIP FOR CULTURE; PICC LINE NURSE NOT AVAILABLE AT THIS TIME TIME TO REPLACE LINE. NEW MIDLINE TO BE INSERTED AND PICC LINE MAY BE INSERTED AFTER 24 HRS OF MIDLINE PLACEMENT IF NEEDED.
[2020-09-11] VITALS (54 sets, daily range): BP systolic 85–125; BP diastolic 41–84
[2020-09-11] MEDS: HYDROCORTISONE SOD SUCCINATE 100 MG/2 ML VIAL IV SCH ×3 (04:49→20:42)
[2020-09-11 05:03] LABS: CALCIUM, SERUM 11.9 mg/dL (8.5-10.1); CARBON DIOXIDE 26 mmol/L (21-32); CHLORIDE 108 mmol/L (98-107); CREATININE 0.8 mg/dL (0.6-1.3); GLUCOSE 104 mg/dL (74-106); POTASSIUM 3.7 mmol/L (3.5-5.1); SODIUM SERUM 143 mmol/L (136-145); UREA NITROGEN, BLOOD 46 mg/dL (7-18)
[2020-09-11] MEDS: PANTOPRAZOLE 40 MG/PACK PACK GT SCH (07:30)
--- NOTE | 2020-09-11 07:30 | NUR ---
RN OPENING NOTES PATIENT PRESENT IN BED, A/OX0, ON VENT SETTINGS, TOLERATING WELL, NO DISTRESS NOTED, SPOP2 IS 97% , NPO STATUS NOTED DUE POSSIBLE PEG PLACEMENT TODAY, ON A-FIB ON TELE-MONITOR, THORPE CATH IN PLACE, DRAINING DARK YELLOW URINE BY GRAVITY,RECTAL TUBE IN PLACE, CLEAN WITH NO DRAINAGE, GENERALIZED EDEMA PRESENT, NG TUBE IN PLACE, CLAMPED, AUSCULTATED FOR PLACEMENT, R SUBCLAVIAN TLC IN PLACE, INTACT, FLUSHED AND PATENT, NO FLUIDS RUNNING, HOB ELEVATED, SAFETY MEASURES IN PLACE, WILL CONT TO MONITOR CLOSELY
--- NOTE | 2020-09-11 08:30 | NUR ---
fio2 and peep increased per dr castillo verbal order Addendum: 09/11/20 at 0853 by GERARDO MACDONALD RT Amended: Links added.
[2020-09-11] MEDS: THIAMINE HCL 100 MG TABLET GT SCH (09:00)
[2020-09-11] MEDS: LEVETIRACETAM SOL (5 ML) 100 MG/ML UDC GT SCH ×2 (09:00→20:44)
[2020-09-11] MEDS: ASCORBIC ACID 500 MG TABLET GT SCH (09:00)
[2020-09-11] MEDS: GABAPENTIN 100 MG CAPSULE GT SCH ×3 (09:00→16:33)
[2020-09-11] MEDS: LACTULOSE 10 G/15 ML UDC (PYXIS) NG SCH ×2 (09:00→16:33)
[2020-09-11] MEDS: MULTIVIT W/MINERALS 1 TAB TABLET GT SCH (09:00)
[2020-09-11] MEDS: ZINC SULFATE 220 MG CAPSULE GT SCH (09:00)
[2020-09-11] MEDS: PROSOURCE / PROSTAT (PYXIS) 30 ML UDC GT SCH ×3 (09:00→16:34)
[2020-09-11] MEDS: FOLIC ACID 1 MG TABLET GT SCH (09:00)
[2020-09-11] MEDS: DICYCLOMINE HCL 10 MG/5 ML UDC GT SCH ×3 (09:00→16:56)
[2020-09-11] MEDS: MAGNESIUM OXIDE 400 MG TABLET GT SCH ×2 (09:00→16:33)
[2020-09-11] MEDS: VITAMIN B COMP W-C 1 TAB TABLET GT SCH (09:00)
[2020-09-11] MEDS: TIMOLOL 0.25% SOL OPHTH 10 ML BOTTLE EACHEYE SCH ×2 (09:22→16:32)
--- NOTE | 2020-09-11 13:15 | NUR ---
Surgery team at bed site, ready for PEG placement, consent obtain from sister Vivian
--- NOTE | 2020-09-11 13:49 | NUR ---
PEG tube placed, anesthesiologist at bed site
[2020-09-11] MEDS: VANCOMYCIN 1.25 GM in IV D5W 250 ML IV SCH (18:27)
--- NOTE | 2020-09-11 18:39 | NUR ---
RN CLOSING NOTES PATIENT IS STABLE, TOLERATING SETTINGS WELL, KEPT CLEAN AND DRY, MEDIATIONS GIVEN,SAFETY MEASURES IMPLEMENTED, WILL ENDORSE TO PM SHIFT RN FOR OWEN
[2020-09-11] MEDS ORDERED: IV NS 0.9% 1,000 ML IV ONE (19:00)
[2020-09-11] MEDS ORDERED: IV NS 0.9% 250 ML IV PRN (19:30)
[2020-09-11] MEDS: IV 1/2NS 1000 ML 1,000 ML IV PRN (19:43)
--- NOTE | 2020-09-11 20:07 | NUR ---
RN/ICU- RECEIVED PT.IN BED, INTUBATED ON AC MODE.FIO2-50%, EKG AFIB.ON CONTACT AND DROPLET ISOLATION, PRECAUTIONS IN EFFECT. CODE STATUS "DNR". AFEBRILE.
[2020-09-11] MEDS: LATANOPROST EYE DROP 0.005% 2.5 ML BOTTLE EACHEYE SCH (22:00)
[2020-09-12] VITALS (14 sets, daily range): BP systolic 66–117; BP diastolic 37–66
--- NOTE | 2020-09-12 | NUR ---
RN/ICU- PICC TEAM HERE TO INSERT A MIDLINE WHICH WAS DONE ON LEFT UPPER ARM
--- NOTE | 2020-09-12 00:17 | NUR ---
RN/ICU- PICC LINE ON RIGHT UPPER ARM DC'D, AND TIP COLLECTED AND SENT TO LAB FOR C/S PER PROTOCOL.
[2020-09-12 03:31] LABS: POTASSIUM 3.4 mmol/L (3.5-5.1)
[2020-09-12] MEDS: HYDROCORTISONE SOD SUCCINATE 100 MG/2 ML VIAL IV SCH ×3 (04:34→20:04)
[2020-09-12] MEDS: LEVETIRACETAM SOL (5 ML) 100 MG/ML UDC GT SCH ×2 (08:34→20:04)
[2020-09-12] MEDS: PANTOPRAZOLE 40 MG/PACK PACK GT SCH (08:34)
[2020-09-12] MEDS: THIAMINE HCL 100 MG TABLET GT SCH (08:34)
[2020-09-12] MEDS: VITAMIN B COMP W-C 1 TAB TABLET GT SCH (08:34)
[2020-09-12] MEDS: FOLIC ACID 1 MG TABLET GT SCH (08:34)
[2020-09-12] MEDS: ZINC SULFATE 220 MG CAPSULE GT SCH (08:34)
[2020-09-12] MEDS: GABAPENTIN 100 MG CAPSULE GT SCH ×3 (08:34→17:15)
[2020-09-12] MEDS: MAGNESIUM OXIDE 400 MG TABLET GT SCH ×2 (08:34→17:15)
[2020-09-12] MEDS: PROSOURCE / PROSTAT (PYXIS) 30 ML UDC GT SCH ×3 (08:34→17:32)
[2020-09-12] MEDS: MULTIVIT W/MINERALS 1 TAB TABLET GT SCH (08:34)
[2020-09-12] MEDS: ASCORBIC ACID 500 MG TABLET GT SCH (08:35)
[2020-09-12] MEDS: LACTULOSE 10 G/15 ML UDC (PYXIS) NG SCH ×2 (08:35→17:15)
[2020-09-12] MEDS: TIMOLOL 0.25% SOL OPHTH 10 ML BOTTLE EACHEYE SCH ×2 (08:35→18:18)
[2020-09-12] MEDS: DICYCLOMINE HCL 10 MG/5 ML UDC GT SCH ×3 (08:37→17:32)
[2020-09-12] MEDS ORDERED: POTASSIUM CHLORIDE 20 MEQ TAB.PRT.SR PO SCH (10:30)
--- NOTE | 2020-09-12 11:20 | NUR ---
RECEIVED PT VIA BED. RECEIVED BEDSIDE REPORT FROM JULIO FROM ICU. VENT SETTINGS ORDERED. TRACH IN PLACE. GT IN PLACE. NO SIGNS OF INFILTRATION OR REDNESS. PT RESPIRATIONS EVEN AND UNLABORED. SKIN WARM AND FLUSHED. WILL MONITOR RESP STATUS Q2H, VS Q4H, AND REPORT TO MD NEEDED. ALL HOSPITAL POLICY SAFETY PRECAUTIONS IMPLEMENTED.
--- NOTE | 2020-09-12 11:40 | NUR ---
PT TRANSFERRED TO [facility]. BEDSIDE REPORT GIVEN TO JAMES.
[2020-09-12] MEDS ORDERED: POTASSIUM CHLORIDE 20 MEQ POWDER PACKET PO ONE (12:30)
[2020-09-12] MEDS: VANCOMYCIN 1.25 GM in IV D5W 250 ML IV SCH (18:00)
--- NOTE | 2020-09-12 18:18 | NUR ---
ORDERED PRANEETH HELD TROUGH THIS EVENING 35. PHARMACY VERIFIED OK TO HOLD.
--- NOTE | 2020-09-12 19:09 | NUR ---
PT OBTUNDED AND NON VERBAL IN BED. HOB ELEVATED. VENT SETTINGS ORDERED. TRACH IN PLACE. GT IN PLACE. NO RESIDUAL. AUSCULTATED FOR PLACEMENT. GT FEEDING RUNNING ORDERED. SIMIN MIDLINE FLUSHED INTACT AND IV FLUID RUNNING ORDERED. NO SIGNS OF INFILTRATION OR REDNESS. PT RESPIRATIONS EVEN AND UNLABORED. SKIN WARM AND FLUSHED. WILL MONITORED RESP STATUS Q2H, VS Q4H, AND REPORTED TO MD NEEDED. ALL HOSPITAL POLICY SAFETY PRECAUTIONS IMPLEMENTED. ENDORSED TO PM RN.
--- NOTE | 2020-09-12 19:15 | NUR ---
RECEIVED PT ON BED OBTUNDED, ON TRACH VENT SETTING PER MD SPO2 93%, NO SIGN OF DISTRESS NOTED, HAVE PEG WITH ONGOING 2CAL HN @ 20ML/HR HAVE THORPE CATHETER ON PLACE HAVE RECTAL TUBE ON PLACE MIDLINE ON MIRZA FLUSHED AND PATENT, SIDE RAILS UP X2 BED ON LOWEST POSITION AND LOCKED WILL CONT TO MONITOR THE PT
[2020-09-12] MEDS ORDERED: ALBUTEROL FS 2.5 MG/0.5 ML VIAL.NEB ONE (19:27)
[2020-09-12] MEDS: LATANOPROST EYE DROP 0.005% 2.5 ML BOTTLE EACHEYE SCH (22:10)
[2020-09-13] VITALS: BP 91/48
[2020-09-13 04:00] VITALS: BP 99/58
[2020-09-13] MEDS: HYDROCORTISONE SOD SUCCINATE 100 MG/2 ML VIAL IV SCH ×3 (05:12→21:19)
[2020-09-13] MEDS: Z GUARD REMEDY 2 OZ OINT TP PRN (05:14)
[2020-09-13] MEDS: TWOCAL HN 1,000 ML LIQUID GT PRN (05:15)
--- NOTE | 2020-09-13 07:08 | NUR ---
pt on bed open eyes on stimuli, spo2 94% still on trach vent setting per MD no significant changes on condition noted, all needs attended, no pain noted, maintain on khan and rectal tube, wound treatment done, bed on lowest position and locked side rails up x2 call light will end orsed to am shift nurse
--- NOTE | 2020-09-13 07:30 | NUR ---
CULLET WASHER 1 OPENING NOTES Patient received in bed. Patient is on trach vent setting per MD orders. No s/s of respiratory distress. Head of the bed kept elevated. On khan cath with clear yellow urine draining and patient noted with rectal tube. Patient continues on gtube feeding. Gtube placement noted and no residual. Bed in lowest and locked position. Will continue to monitor. call light with in reach.
[2020-09-13 08:00] VITALS: BP 104/54
[2020-09-13] MEDS: DICYCLOMINE HCL 10 MG/5 ML UDC GT SCH ×3 (09:10→17:29)
[2020-09-13] MEDS: TIMOLOL 0.25% SOL OPHTH 10 ML BOTTLE EACHEYE SCH ×2 (09:10→17:30)
[2020-09-13] MEDS: FOLIC ACID 1 MG TABLET GT SCH (09:11)
[2020-09-13] MEDS: LEVETIRACETAM SOL (5 ML) 100 MG/ML UDC GT SCH ×2 (09:11→21:19)
[2020-09-13] MEDS: MAGNESIUM OXIDE 400 MG TABLET GT SCH ×2 (09:11→17:29)
[2020-09-13] MEDS: ASCORBIC ACID 500 MG TABLET GT SCH (09:12)
[2020-09-13] MEDS: VITAMIN B COMP W-C 1 TAB TABLET GT SCH (09:12)
[2020-09-13] MEDS: PROSOURCE / PROSTAT (PYXIS) 30 ML UDC GT SCH ×3 (09:12→17:28)
[2020-09-13] MEDS: MULTIVIT W/MINERALS 1 TAB TABLET GT SCH (09:12)
[2020-09-13] MEDS: GABAPENTIN 100 MG CAPSULE GT SCH ×3 (09:12→17:29)
[2020-09-13] MEDS: THIAMINE HCL 100 MG TABLET GT SCH (09:12)
[2020-09-13] MEDS: ZINC SULFATE 220 MG CAPSULE GT SCH (09:13)
[2020-09-13] MEDS: LACTULOSE 10 G/15 ML UDC (PYXIS) NG SCH ×2 (09:13→17:29)
[2020-09-13] MEDS: PANTOPRAZOLE 40 MG/PACK PACK GT SCH (09:23)
[2020-09-13 12:00] VITALS: BP 101/63
[2020-09-13] MEDS: DAKINS QUARTER STRENGTH (0.125%) 480 ML BOTTLE TOP SCH (15:00)
[2020-09-13 15:21] LABS: BASOPHILS % (AUTO) 0.2 % (0.0-2.0); EOSINOPHILS % (AUTO) 0.2 % (0.0-6.0); HEMATOCRIT 37 % (33-45); HEMOGLOBIN 11.4 g/dL (11.5-14.8); LYMPHOCYTES # (AUTO) 0.8 /CMM (0.8-4.8); LYMPHOCYTES % (AUTO) 4.1 % (20.0-44.0); MEAN CORPUSCULAR HGB CONC 31 g/dl (31.0-36.0); MEAN CORPUSCULAR VOLUME 96 fL (82-100); MONOCYTES # (AUTO) 0.6 /CMM (0.1-1.30); MONOCYTES % (AUTO) 3.1 % (2.0-12.0); NEUTROPHILS # (AUTO) 17.4 /CMM (1.8-8.9); NEUTROPHILS % (AUTO) 92.4 % (43.0-81.0); PLATELET COUNT (AUTO) 271 /CMM (150-450); RED BLOOD CELL COUNT(AUTO) 3.87 MIL/uL (4.0-5.2); WHITE BLOOD COUNT (AUTO) 18.8 K/uL (4.3-11.0)
[2020-09-13 15:33] LABS: CALCIUM, SERUM 10.5 mg/dL (8.5-10.1); CREATININE 1.1 mg/dL (0.6-1.3)
[2020-09-13 15:39] LABS: BILIRUBIN,TOTAL 0.7 mg/dL (0.2-1.0); CALCIUM, SERUM 10.8 mg/dL (8.5-10.1); CREATININE 1.1 mg/dL (0.6-1.3); TOTAL PROTEIN, SERUM 6.1 g/dL (6.4-8.2)
[2020-09-13 15:47] LABS: ALBUMIN 1.1 g/dL (3.4-5.0)
[2020-09-13 16:00] VITALS: BP 104/68
[2020-09-13] MEDS: IV 1/2NS 1000 ML 1,000 ML IV PRN (16:32)
--- NOTE | 2020-09-13 18:45 | NUR ---
TELE-1 RN CLOSING NOTES Patient is on trach vent setting per MD orders. No s/s of respiratory distress. Head of the bed kept elevated. On khan cath with clear yellow urine draining and noted with urine output of 250 cc which was yellow in color, and patient noted with rectal tube with output of 200 cc liquid stool . Patient continues on gtube feeding at 20 ml/hour.Tele readings of Atrial fib. Bed in lowest and locked position. Will continue to monitor. call light with in reach.
[2020-09-13 19:08] LABS: BAND % (MANUAL) 1 % (0.0-5.0); LYMPHOCYTES % (MANUAL) 6 % (16-48); MONOCYTES % (MANUAL) 3 % (0-11.0); NEUTROPHILS % (MANUAL) 90 (42-76)
[2020-09-13 20:00] VITALS: BP 95/63
[2020-09-13] MEDS ORDERED: FLUCONAZOLE (100 MG) 100 MG TABLET PO SCH (20:00)
--- NOTE | 2020-09-13 20:00 | NUR ---
RN OPENING NOTES RECEIVED PATIENT IN BED, WITH TRACH. NO RESPIRATORY DISTRESS NOTED. WITH O2 SAT OF 93 %. TELE MONITORS SHOWS AFIB, HR OF 110. NO SIGNS OF PAIN NOR DISCOMFORT. PT WITH RIGHT ARM SKIN TEAR WITH MILD DRAINAGE. AND INGUINAL MASD. WOUND DRESSING ON SACRUM INTACT. PT ON 2CAL HN GT FEEDING TOLERATING WELL. GT IN PLACE. KEPT HOB ELEVATED. MIRZA MIDLINE PATENT AND INTACT, IVF 1/2 NS INFUSING WELL. NO SIGNS OF INFILTRATION. RECTAL TUBE IN PLACE. THORPE CATH INDWELLING WELL WITH CLEAR YELLOW URINE OUTPUT. ALL SAFETY MEASURES IMPLEMENTED PER PROTOCOL. CALL LIGHT WITHIN REACH. BED LOCKED IN LOWEST POSITION. SIDE RAILS UP X2.
[2020-09-13] MEDS: FLUCONAZOLE (100 MG) 100 MG TABLET GT SCH (21:20)
[2020-09-13] MEDS ORDERED: LATANOPROST EYE DROP 0.005% 2.5 ML BOTTLE ONE (22:31)
[2020-09-13] MEDS: LATANOPROST EYE DROP 0.005% 2.5 ML BOTTLE EACHEYE SCH (22:35)
[2020-09-14] VITALS: BP 107/69
[2020-09-14 04:00] VITALS: BP 107/57
[2020-09-14] MEDS: HYDROCORTISONE SOD SUCCINATE 100 MG/2 ML VIAL IV SCH ×2 (05:01→12:32)
[2020-09-14 06:30] LABS: BASOPHILS # (AUTO) 0.1 /CMM (0.0-0.2); BASOPHILS % (AUTO) 0.4 % (0.0-2.0); HEMATOCRIT 34 % (33-45); HEMOGLOBIN 10.8 g/dL (11.5-14.8); LYMPHOCYTES # (AUTO) 0.9 /CMM (0.8-4.8); LYMPHOCYTES % (AUTO) 4.2 % (20.0-44.0); MEAN CORPUSCULAR HGB CONC 32 g/dl (31.0-36.0); MEAN CORPUSCULAR VOLUME 97 fL (82-100); MONOCYTES # (AUTO) 0.8 /CMM (0.1-1.30); MONOCYTES % (AUTO) 3.6 % (2.0-12.0); NEUTROPHILS % (AUTO) 91.8 % (43.0-81.0); PLATELET COUNT (AUTO) 240 /CMM (150-450); RED BLOOD CELL COUNT(AUTO) 3.55 MIL/uL (4.0-5.2); WHITE BLOOD COUNT (AUTO) 21.8 K/uL (4.3-11.0)
[2020-09-14 06:43] LABS: CALCIUM, SERUM 10.9 mg/dL (8.5-10.1); MAGNESIUM 2.8 mg/dL (1.8-2.4); PHOSPHORUS 4.4 mg/dL (2.5-4.9); POTASSIUM 3.6 mmol/L (3.5-5.1)
--- NOTE | 2020-09-14 06:58 | NUR ---
RN CLOSING NOTES PT REMAINS IN BED. TOLERATING VENT SETTINGS, NO RESP DISTRESS NOTED. O2 AT SAT 94 %. TRACH SITE WITH MILD DRAINAGE, DRESSING CHANGED. TELE MONITOR SHOWS AFIB. NO SIGNIFICANT CHANGES NOTED. ON FREQUENT VISUAL CHECK, NEEDS ATTENDED. REPOSITIONED Q2H. WOUND TREATMENT DONE ON SACRUM, BUE AND ABD FOLDS. KEPT CLEAN AND DRY. PT TOLEARATING GT FEEDING. NO S/SX OF ASPIRATION NOTED. KEPT HOB ELEVATED. IVF OF 1/2 NS INFUSING WELL WITH NO S/SX OF INFILTRATION. RECTAL TUBE AND THORPE CATH IN PLACE. ALL SAFETY MEASURES IMPLEMENTED PER PROTOCOL. SIDE RAILS UP X 2. CALL LIGHT WITHIN REACH. BED LOCKED IN LOWEST POSITION. WILL ENDORSE TO NEXT SHIFT NURSE FOR OWEN.
[2020-09-14] MEDS ORDERED: VANCOMYCIN 1 GM in IV D5W 250 ML IV SCH (07:00)
--- NOTE | 2020-09-14 07:31 | NUR ---
RN OPENING NOTES RECEIVED PATIENT IN BED, WITH TRACH. NO RESPIRATORY DISTRESS NOTED. WITH O2 SAT OF 94 %. TELE MONITORS SHOWS AFIB, HR OF 150. NO SIGNS OF PAIN NOR DISCOMFORT. WOUND DRESSING ON SACRUM INTACT. PT ON 2CAL HN GT FEEDING TOLERATING WELL. GT IN PLACE. KEPT HOB ELEVATED. MIRZA MIDLINE PATENT AND INTACT, IVF 1/2 NS INFUSING WELL. NO SIGNS OF INFILTRATION. RECTAL TUBE IN PLACE. THORPE CATH INDWELLING WELL WITH CLEAR YELLOW URINE OUTPUT. ALL SAFETY MEASURES IMPLEMENTED PER PROTOCOL. CALL LIGHT WITHIN REACH. BED LOCKED IN LOWEST POSITION. SIDE RAILS UP X2. WILL CONT TO MONITOR AND PROVIDE CARE.
[2020-09-14 08:00] VITALS: BP 119/60
[2020-09-14] MEDS: PANTOPRAZOLE 40 MG/PACK PACK GT SCH (09:05)
[2020-09-14] MEDS: TIMOLOL 0.25% SOL OPHTH 10 ML BOTTLE EACHEYE SCH ×2 (09:05→17:13)
[2020-09-14] MEDS: DICYCLOMINE HCL 10 MG/5 ML UDC GT SCH ×3 (09:05→16:12)
[2020-09-14] MEDS: GABAPENTIN 100 MG CAPSULE GT SCH ×3 (09:06→16:11)
[2020-09-14] MEDS: MAGNESIUM OXIDE 400 MG TABLET GT SCH ×2 (09:06→16:11)
[2020-09-14] MEDS: ASCORBIC ACID 500 MG TABLET GT SCH (09:06)
[2020-09-14] MEDS: FOLIC ACID 1 MG TABLET GT SCH (09:06)
[2020-09-14] MEDS: THIAMINE HCL 100 MG TABLET GT SCH (09:06)
[2020-09-14] MEDS: LEVETIRACETAM SOL (5 ML) 100 MG/ML UDC GT SCH ×2 (09:06→21:28)
[2020-09-14] MEDS: MULTIVIT W/MINERALS 1 TAB TABLET GT SCH (09:06)
[2020-09-14] MEDS: VITAMIN B COMP W-C 1 TAB TABLET GT SCH (09:07)
[2020-09-14] MEDS: ZINC SULFATE 220 MG CAPSULE GT SCH (09:07)
[2020-09-14] MEDS: DAKINS QUARTER STRENGTH (0.125%) 480 ML BOTTLE TOP SCH (09:08)
[2020-09-14] MEDS: LACTULOSE 10 G/15 ML UDC (PYXIS) NG SCH ×2 (09:08→16:11)
[2020-09-14] MEDS: PROSOURCE / PROSTAT (PYXIS) 30 ML UDC GT SCH ×3 (09:08→16:12)
[2020-09-14 12:00] VITALS: BP 105/78
--- NOTE | 2020-09-14 12:00 | NUR ---
NOTIFIED OF HEART RATE/RHYTHM.
[2020-09-14] MEDS: IV 1/2NS 1000 ML 1,000 ML IV PRN (13:48)
[2020-09-14 16:00] VITALS: BP 112/64
[2020-09-14] MEDS: TWOCAL HN 1,000 ML LIQUID GT PRN (16:12)
--- NOTE | 2020-09-14 18:45 | NUR ---
RN CLOSING NOTES PATIENT IN BED, WITH TRACH. NO RESPIRATORY DISTRESS NOTED. WITH O2 SAT OF 96%. TELE MONITORS SHOWS AFIB, HR IN 120-150S. NO SIGNS OF PAIN NOR DISCOMFORT. WOUND DRESSING ON SACRUM INTACT, CHANGED. PT ON 2CAL HN GT FEEDING TOLERATING WELL. GT IN PLACE. KEPT HOB ELEVATED. MIRZA MIDLINE PATENT AND INTACT, IVF 1/2 NS INFUSING WELL. NO SIGNS OF INFILTRATION. RECTAL TUBE IN PLACE. THORPE CATH INDWELLING WELL WITH CLEAR YELLOW URINE OUTPUT. ALL SAFETY MEASURES IMPLEMENTED PER PROTOCOL. CALL LIGHT WITHIN REACH. BED LOCKED IN LOWEST POSITION. SIDE RAILS UP X2. WILL ENDORSE TO ENERGY AUDIT ADVISOR NURSE FOR OWEN
[2020-09-14 20:00] VITALS: BP 102/62
[2020-09-14] MEDS ORDERED: DILTIAZEM HCL CD 240 MG PO SCH (20:00)
[2020-09-14] MEDS: DILTIAZEM HCL 30 MG TABLET PO SCH (21:29)
[2020-09-14] MEDS: FLUCONAZOLE (100 MG) 100 MG TABLET GT SCH (21:29)
[2020-09-14] MEDS: APIXABAN 5 MG TABLET GT SCH (21:30)
[2020-09-14] MEDS: LATANOPROST EYE DROP 0.005% 2.5 ML BOTTLE EACHEYE SCH (21:30)
[2020-09-15] VITALS: BP 105/70
[2020-09-15] MEDS: HYDROCORTISONE SOD SUCCINATE 100 MG/2 ML VIAL IV SCH ×2 (00:22→08:59)
[2020-09-15 04:00] VITALS: BP 115/47
[2020-09-15] MEDS: DILTIAZEM HCL 30 MG TABLET PO SCH ×3 (04:56→21:49)
[2020-09-15 08:00] VITALS: BP 95/31
--- NOTE | 2020-09-15 08:00 | NUR ---
RN OPENING NOTES RECEIVED PATIENT IN BED, WITH TRACH. NO RESPIRATORY DISTRESS NOTED. WITH O2 SAT OF 94 %. TELE MONITORS SHOWS AFIB, HR OF 110. NO SIGNS OF PAIN NOR DISCOMFORT. WOUND DRESSING ON SACRUM INTACT. PT ON 2CAL HN GT FEEDING TOLERATING WELL@20 ML/HR. GT IN PLACE. KEPT HOB ELEVATED. MIRZA MIDLINE PATENT AND INTACT, IVF 1/2 NS INFUSING WELL. NO SIGNS OF INFILTRATION. RECTAL TUBE IN PLACE. THORPE CATH INDWELLING WELL WITH CLEAR YELLOW URINE OUTPUT BY GRAVITY. ALL SAFETY MEASURES IMPLEMENTED PER HOSPITAL PROTOCOL. CALL LIGHT WITHIN THE PATIENT REACH. BED LOCKED IN LOWEST POSITION AND SIDE RAILS UP X2. WILL CONT TO MONITOR AND PROVIDE CARE.
[2020-09-15 08:30] LABS: BASOPHILS % (AUTO) 0.2 % (0.0-2.0); EOSINOPHILS % (AUTO) 0.1 % (0.0-6.0); HEMATOCRIT 36 % (33-45); HEMOGLOBIN 11.1 g/dL (11.5-14.8); LYMPHOCYTES # (AUTO) 0.9 /CMM (0.8-4.8); LYMPHOCYTES % (AUTO) 4.8 % (20.0-44.0); MEAN CORPUSCULAR HGB CONC 31 g/dl (31.0-36.0); MEAN CORPUSCULAR VOLUME 97 fL (82-100); MONOCYTES # (AUTO) 0.7 /CMM (0.1-1.30); NEUTROPHILS # (AUTO) 16.4 /CMM (1.8-8.9); NEUTROPHILS % (AUTO) 90.9 % (43.0-81.0); PLATELET COUNT (AUTO) 204 /CMM (150-450); WHITE BLOOD COUNT (AUTO) 18.1 K/uL (4.3-11.0)
[2020-09-15] MEDS: MAGNESIUM OXIDE 400 MG TABLET GT SCH ×2 (08:57→16:10)
[2020-09-15] MEDS: ZINC SULFATE 220 MG CAPSULE GT SCH (08:57)
[2020-09-15] MEDS: LEVETIRACETAM SOL (5 ML) 100 MG/ML UDC GT SCH ×2 (08:57→21:45)
[2020-09-15] MEDS: MULTIVIT W/MINERALS 1 TAB TABLET GT SCH (08:57)
[2020-09-15] MEDS: LACTULOSE 10 G/15 ML UDC (PYXIS) NG SCH ×2 (08:57→16:10)
[2020-09-15] MEDS: VITAMIN B COMP W-C 1 TAB TABLET GT SCH (08:58)
[2020-09-15] MEDS: PANTOPRAZOLE 40 MG/PACK PACK GT SCH (08:58)
[2020-09-15] MEDS: FOLIC ACID 1 MG TABLET GT SCH (08:58)
[2020-09-15] MEDS: DICYCLOMINE HCL 10 MG/5 ML UDC GT SCH ×3 (08:58→16:12)
[2020-09-15] MEDS: THIAMINE HCL 100 MG TABLET GT SCH (08:58)
[2020-09-15] MEDS: ASCORBIC ACID 500 MG TABLET GT SCH (08:58)
[2020-09-15] MEDS: GABAPENTIN 100 MG CAPSULE GT SCH ×3 (08:58→16:10)
[2020-09-15] MEDS: TIMOLOL 0.25% SOL OPHTH 10 ML BOTTLE EACHEYE SCH ×2 (09:00→16:10)
[2020-09-15] MEDS: PROSOURCE / PROSTAT (PYXIS) 30 ML UDC GT SCH ×3 (09:00→16:17)
[2020-09-15] MEDS: APIXABAN 5 MG TABLET GT SCH ×2 (09:02→21:47)
[2020-09-15] MEDS: DAKINS QUARTER STRENGTH (0.125%) 480 ML BOTTLE TOP SCH (09:02)
[2020-09-15 10:42] LABS: CALCIUM, SERUM 10.7 mg/dL (8.5-10.1); CREATININE 1.2 mg/dL (0.6-1.3); MAGNESIUM 3.1 mg/dL (1.8-2.4); PHOSPHORUS 4.5 mg/dL (2.5-4.9); POTASSIUM 3.5 mmol/L (3.5-5.1)
--- NOTE | 2020-09-15 11:06 | NUR ---
RN NOTES JASON CALLED FROM LAB IN REGARDS TO CRITICAL BUN OF 86 INFORMED VINICIUS CHOWDARY
[2020-09-15 12:00] VITALS: BP 122/71
[2020-09-15] MEDS: DIGOXIN INJ 0.5 MG/2 ML AMPUL IV SCH ×2 (12:15→17:47)
[2020-09-15] MEDS: IV 1/2NS 1000 ML 1,000 ML IV PRN (13:11)
--- NOTE | 2020-09-15 15:11 | NUR ---
RN NOTES PT HAS NO S/S OF ACUTE RESPIRATORY DISTRESS AT THIS TIME
[2020-09-15 16:00] VITALS: BP 115/60
--- NOTE | 2020-09-15 18:56 | NUR ---
RN CLOSING NOTES PATIENT CURRENTLY IN BED, RESTING. PT IS OBTUNDED. TELE/MONITOR IS A/FIB. PATIENT CURRENTLY ON TRACH AND SETTINGS PER ORDER. NO S/S OF RESPIRATORY DISTRESS NOTED. PT HAS G TUBE OF 2 MALIK RUNNING @ 20 ML/HR TUBE FEEDING. CURRENTLY HAS IV ON L UPPER ARM MIDLINE RUNNING 1/2 NS @ 50 ML/HR. IV INTACT AND PATENT, NO S/S OF INFECTION OR INFILTRATION AT THIS TIME. ALL SAFETY MEASURES IN PLACE PER HOSPITAL POLICY. BED LOCKED AND IN THE LOWEST POSITION.SIDE RAILS ARE UP X2. CALL LIGHT WITHIN REACH. WILL ENDORSE TO HUMAN RESOURCES ADVISOR NURSE FOR OWEN.
--- NOTE | 2020-09-15 19:35 | NUR ---
GATE CUTTER OPENING NOTES: RECEIVED PT IN BED.OBTUNDED. HOB ELEVATED AT ALL TIMES. WITH TRACH INTACT TO THE VENTILATOR. NO S/S OF DISTRESS NOTED. BED IN LOWEST AND LOCKED POSITION. WITH GT INTACT NO SKIN PROBLEM ON THE SITE, DRESSING CHANGED. WITH 2 MALIK HN FEEDING AT 20ML/HOUR HELD BY RN RICK SINCE 5PM. WITH RECTAL TUBE INTACT DRAINING BROWNISH LIQUIDY STOOL. WITH THORPE CATHETER INTACT DRAINING CLEAR YELLOW URINE. WITH BEAR HUGGER WARMING DEVICE ON. WITH TEMP OF 98.0, PLACED ON STANDBY FOR NOW.WILL RECHECK THE TEMP.WITH LEFT HAND BRUISE. BILATERAL HANDS PITTING EDEMA.
[2020-09-15 20:00] VITALS: BP 103/40
[2020-09-15] MEDS ORDERED: CEFEPIME 2 GM in IV D5W 100 ML IV ONE (20:00)
[2020-09-15] MEDS: FLUCONAZOLE (100 MG) 100 MG TABLET GT SCH (21:50)
[2020-09-15] MEDS: LATANOPROST EYE DROP 0.005% 2.5 ML BOTTLE EACHEYE SCH (21:57)
--- NOTE | 2020-09-15 22:19 | NUR ---
GT RESIDUAL CHECKED= 450 ML, GT FEEDING STILL ON HOLD, INFORMED PEPPER CUTTER SANDIE.
[2020-09-15] MEDS ORDERED: CEFEPIME 1 GM VIAL ONE (23:10)
[2020-09-16] VITALS (7 sets, daily range): BP systolic 90–96; BP diastolic 42–62
[2020-09-16] MEDS: DIGOXIN INJ 0.5 MG/2 ML AMPUL IV SCH (00:26)
[2020-09-16] MEDS: DILTIAZEM HCL 30 MG TABLET PO SCH (05:31)
--- NOTE | 2020-09-16 05:42 | NUR ---
GT RESIDUAL [id number], FEEDING STILL HELD. CHARGE NURSE MADE AWARE.
--- NOTE | 2020-09-16 06:00 | NUR ---
AD OPERATIONS SPECIALIST CLOSING NOTES: PT IN BED, OBTUNDED, NO S/S OF DISTRESS NOTED. BED IN LOWEST AND LOCKED POSITION. HOB ELEVATED AT ALL TIMES. OFFLOADED. TURNED Q 2 HOURS. WITH SMALL AMOUNT OF YELLOWISH SECRETIONS NOTED ON THE TRACH, CLEANED. A WOUND UNDERNEATH THE TRACH NOTED( ON THE LOWER PART OF THE TRACH) WITH SOME SLOUGH ON THE WOUND AND WITH YELLOWISH DISCHARGES,CLEANED THE WOUND AND PLACED A NEW GAUZE. RT CHANGED THE COLLAR. WOUND CARE DONE: MASD ABD FOLD-CLEANSED WITH NS, PAT DRY AND APPLIED Z-GUARD. ON BUE SKIN TEARS: CLEANSED WITH NS, PAT DRY AND APPLIED XEROFORM TO OPEN AREAS AND WRAPPED WITH KERLIX. ON SACRAL AREA: APPLIED DAKIN'S MOISTENED GAUZE TO WOUND AND COVERED WITH WITH ABD PAD. OFFLOADED.TURNED Q 2HOURS.
--- NOTE | 2020-09-16 07:25 | NUR ---
RN OPENING NOTES RECEIVED PATIENT IN BED, WITH TRACH. NO RESPIRATORY DISTRESS NOTED. WITH O2 SAT OF 97%. TOLERATING VENT SETTINGS WELL. TELE MONITORS SHOWS AFIB, HR @100S. NO SIGNS OF PAIN AT THIS TIME. WOUND DRESSING ON SACRUM INTACT. GT IN PLACE, POSITIVE PLACEMENT CHECKED, RESIDUAL OF 250MLS. GT FEEDING ON HOLD UNTIL NO RESIDUAL. KEPT HOB ELEVATED. MIRZA MIDLINE PATENT AND INTACT. RECTAL TUBE IN PLACE. THORPE CATH DRAINING WELL INTO CLEAR YELLOW URINE OUTPUT BY GRAVITY. SAFETY MEASURES IMPLEMENTED. CALL LIGHT WITHIN REACH. BED LOCKED AND IN LOWEST POSITION WITH SIDE RAILS UP X2. WILL CONTINUE TO MONITOR.
[2020-09-16 08:42] LABS: CALCIUM, SERUM 10.6 mg/dL (8.5-10.1); CARBON DIOXIDE 23 mmol/L (21-32); CHLORIDE 108 mmol/L (98-107); CREATININE 1.5 mg/dL (0.6-1.3); GLUCOSE 120 mg/dL (74-106); POTASSIUM 3.7 mmol/L (3.5-5.1); SODIUM SERUM 139 mmol/L (136-145)
[2020-09-16 08:55] LABS: UREA NITROGEN, BLOOD 98 mg/dL (7-18)
[2020-09-16 09:06] LABS: BASOPHILS # (AUTO) 0.1 /CMM (0.0-0.2); BASOPHILS % (AUTO) 0.2 % (0.0-2.0); EOSINOPHILS % (AUTO) 0.1 % (0.0-6.0); HEMATOCRIT 35 % (33-45); HEMOGLOBIN 10.7 g/dL (11.5-14.8); LYMPHOCYTES # (AUTO) 1.8 /CMM (0.8-4.8); LYMPHOCYTES % (AUTO) 5.4 % (20.0-44.0); MEAN CORPUSCULAR HGB CONC 30 g/dl (31.0-36.0); MEAN CORPUSCULAR VOLUME 98 fL (82-100); MONOCYTES % (AUTO) 3.1 % (2.0-12.0); NEUTROPHILS # (AUTO) 29.4 /CMM (1.8-8.9); NEUTROPHILS % (AUTO) 91.2 % (43.0-81.0); PLATELET COUNT (AUTO) 217 /CMM (150-450); RED BLOOD CELL COUNT(AUTO) 3.59 MIL/uL (4.0-5.2)
[2020-09-16 09:18] LABS: WHITE BLOOD COUNT (AUTO) 32.3 K/uL (4.3-11.0)
[2020-09-16 09:31] LABS: ALANINE AMINOTRANSFERASE 49 U/L (12-78); ALKALINE PHOSPHATASE 321 U/L (46-116); ASPARTATE AMINOTRANSFERASE 47 U/L (15-37); CALCIUM, SERUM 10.7 mg/dL (8.5-10.1); CARBON DIOXIDE 21 mmol/L (21-32); CHLORIDE 107 mmol/L (98-107); CREATININE 1.5 mg/dL (0.6-1.3); GLUCOSE 117 mg/dL (74-106); PHOSPHORUS 4.8 mg/dL (2.5-4.9); POTASSIUM 3.7 mmol/L (3.5-5.1); SODIUM SERUM 139 mmol/L (136-145); TOTAL PROTEIN, SERUM 5.5 g/dL (6.4-8.2)
[2020-09-16 09:37] LABS: UREA NITROGEN, BLOOD 97 mg/dL (7-18)
[2020-09-16] MEDS: ZINC SULFATE 220 MG CAPSULE GT SCH (09:47)
[2020-09-16] MEDS: THIAMINE HCL 100 MG TABLET GT SCH (09:47)
[2020-09-16] MEDS: PANTOPRAZOLE 40 MG/PACK PACK GT SCH (09:47)
[2020-09-16] MEDS: LACTULOSE 10 G/15 ML UDC (PYXIS) NG SCH ×2 (09:47→17:00)
[2020-09-16] MEDS: VITAMIN B COMP W-C 1 TAB TABLET GT SCH (09:47)
[2020-09-16] MEDS: DICYCLOMINE HCL 10 MG/5 ML UDC GT SCH ×3 (09:47→17:17)
[2020-09-16] MEDS: MULTIVIT W/MINERALS 1 TAB TABLET GT SCH (09:47)
[2020-09-16] MEDS: LEVETIRACETAM SOL (5 ML) 100 MG/ML UDC GT SCH ×2 (09:47→21:10)
[2020-09-16] MEDS: PROSOURCE / PROSTAT (PYXIS) 30 ML UDC GT SCH ×3 (09:48→17:18)
[2020-09-16] MEDS: FOLIC ACID 1 MG TABLET GT SCH (09:48)
[2020-09-16] MEDS: ASCORBIC ACID 500 MG TABLET GT SCH (09:48)
[2020-09-16] MEDS: MAGNESIUM OXIDE 400 MG TABLET GT SCH ×2 (09:48→17:18)
[2020-09-16] MEDS: GABAPENTIN 100 MG CAPSULE GT SCH ×3 (09:48→17:17)
[2020-09-16] MEDS: DAKINS QUARTER STRENGTH (0.125%) 480 ML BOTTLE TOP SCH (09:49)
[2020-09-16] MEDS: TIMOLOL 0.25% SOL OPHTH 10 ML BOTTLE EACHEYE SCH ×2 (09:49→17:16)
[2020-09-16] MEDS: AMIODARONE HCL 200 MG TABLET PO SCH ×3 (10:00→17:00)
--- NOTE | 2020-09-16 10:00 | NUR ---
RN NOTES CRITICAL VALUE FROM LAB. ALBUMIN 1.0 DR. DE LA FUENTE MADE AWARE.
--- NOTE | 2020-09-16 10:30 | NUR ---
RN NOTES BP 85/43. INFORMED DR. DE LA FUENTE, TO HOLD AMIODARONE
[2020-09-16] MEDS: APIXABAN 5 MG TABLET GT SCH ×2 (10:32→21:10)
[2020-09-16 11:38] LABS: BAND % (MANUAL) 4 % (0.0-5.0); EOSINOPHILS % (MANUAL) 1 % (0-4); LYMPHOCYTES % (MANUAL) 9 % (16-48); MONOCYTES % (MANUAL) 3 % (0-11.0); NEUTROPHILS % (MANUAL) 83 (42-76)
[2020-09-16] MEDS ORDERED: DIGOXIN ELIX UDC 0.25 MG/5 ML UDC GT SCH (13:00)
[2020-09-16] MEDS ORDERED: DIGOXIN 0.125 MG TABLET GT SCH (13:52)
[2020-09-16] MEDS: ALBUMIN 25% 25 GM in PREMIX 1 EA IV SCH (15:31)
[2020-09-16] MEDS: DIGOXIN 0.125 MG TABLET GT SCH (15:32)
[2020-09-16] MEDS: CEFEPIME 2 GM in IV D5W 100 ML IV SCH (17:24)
--- NOTE | 2020-09-16 18:56 | NUR ---
RN CLOSING NOTES PATIENT IN BED, WITH TRACH. NO RESPIRATORY DISTRESS NOTED. WITH O2 SAT OF 98%. TOLERATING VENT SETTINGS WELL. TELE MONITORS SHOWS AFIB, HR @100S. NO SIGNS OF PAIN AT THIS TIME. WOUND DRESSING ON SACRUM INTACT. GT IN PLACE, POSITIVE PLACEMENT CHECKED, RESIDUAL OF 250MLS. GT FEEDING ON HOLD UNTIL NO RESIDUAL. KEPT HOB ELEVATED. MIRZA MIDLINE PATENT AND INTACT. RECTAL TUBE IN PLACE. THORPE CATH DRAINING WELL INTO CLEAR YELLOW URINE OUTPUT BY GRAVITY. SAFETY MEASURES IMPLEMENTED. CALL LIGHT WITHIN REACH. BED LOCKED AND IN LOWEST POSITION WITH SIDE RAILS UP X2. WILL ENDORSE TO NIGHT NURSE FOR OWEN.
--- NOTE | 2020-09-16 19:30 | NUR ---
JOINT SETTER OPENING NOTE RECEIVED PATIENT IN BED. OBTUNDED, VERY DIFFICULT TO AROUSE WITH DEEP PAIN. ON MECHANICAL VENT: AMERICO #8,AC 16 TV 380, FIO2 50%, PEEP 5. RESPIRATIONS ARE EVEN AND UNLABORED. NO S/S RESP DISTRESS. NO S/S PAIN NOTED AT THIS TIME.EXTERNAL TELE MONITOR READ UNCONTROLLED AFIB HR RANGING FROM 70S- 120S. IN NO APPARENT DISTRESS. IV ACCESS IN MIRZA MIDLINE PATENT AND SALINE LOCKED. THORPE CATHETER IS PRESENT, DRAINING TO GRAVITY, URINE IS YELLOW AND CLEAR. RECTAL TUBE IS PRESENT , DRAINING TO GRAVITY, STOOL IS SOFT, BROWN AND LIQUID. GTUBE IS PRESENT, RESIDUAL IS 70ML/HR. PER REPORT HOLD FEEDING UNTIL NO RESIDUAL, WILL ASSESS LATER. BED IS LOW AND LOCKED. HOB ELEVATED IN SEMI FOWLERS, SIDE RIALS UP X2, CALL LIGHT WITHIN REACH. PN SPECIALTY AIR MATTRESS. WILL CONTINUE TO MONITOR THROUGHOUT SHIFT.
[2020-09-16] MEDS ORDERED: MICAFUNGIN SODIUM 100 MG in IV NS 0.9% 100 ML IV SCH (20:00)
[2020-09-16] MEDS ORDERED: FLUCONAZOLE (100 MG) 100 MG TABLET GT SCH (21:00)
[2020-09-16] MEDS ORDERED: MICAFUNGIN SODIUM 100 MG VIAL IV ONE (21:01)
[2020-09-16] MEDS: METRONIDAZOLE 500 MG TABLET PO SCH (21:10)
--- NOTE | 2020-09-16 21:11 | NUR ---
telecommunication equipment repairer note patient has scheduled at 2000 mycamine 100mg. medication is not available in cassette. checked all other cassettes for misplacement but was not to be found. informed RN sup to check night locker for mycamine 100mg, rn sup checked and medication not available in night locker. RN sup informed me to call ordering doctor. called Yovany CHOWDARY and informed her of the situation nd if she would like to order a different antibiotic, stated no we can start mycamine in AM. order read back noted and carried out.
[2020-09-16] MEDS: LATANOPROST EYE DROP 0.005% 2.5 ML BOTTLE EACHEYE SCH (21:18)
[2020-09-17] VITALS (19 sets, daily range): BP systolic 78–120; BP diastolic 28–77
--- NOTE | 2020-09-17 01:59 | NUR ---
ANIMATION DIRECTOR NOTE INFORMED LEE ANN HOOPER THAT PATIENT BP IS 80/41 HR 70S TO 110 UNCONTROLLED AFIB. MD CAME TO SEE PATIENT. ORDERED 500ML NS BOLUS AND START GTUBE FEEDING 20ML/HR. ORDERED NOTED AND CARRIED OUT.
[2020-09-17] MEDS ORDERED: IV NS 0.9% 500 ML IV ONE (02:30)
[2020-09-17] MEDS: ALBUMIN 25% 25 GM in PREMIX 1 EA IV SCH (03:04)
--- NOTE | 2020-09-17 04:58 | NUR ---
CLOTH PRESSER NOTE INFORMED LEE ANN HOOPER DNP THAT PATIENTS BP IS NOW 73/29. EVEN AFTER 500ML BOLUS OF NS AND HER SCHEDULED ALBUMIN 25MG. PATIENT WAS ALSO CLEANED BEFORE THE TIME OF BP TAKEN. STATED HE WILL ENTER ORDER FOR LEVOPHED. ORDER NOTED AND CARRIED OUT.
[2020-09-17] MEDS: METRONIDAZOLE 500 MG TABLET PO SCH ×3 (05:54→20:59)
--- NOTE | 2020-09-17 06:05 | NUR ---
ENTRANCE GUARD NOTE CALLED [facility] THE NIGHT PHARMACY TO VERIFY ORDERS FOR LEVOPHED.
--- NOTE | 2020-09-17 06:21 | NUR ---
BATCH TRUCKER NOTE CALLED RN SUP AND INFORMED HER HOLLEY Villarreal UNABLE TO TAKE OUT LEVOPHED FROM ONMI CELL. SHE IS ON HER WAY TO THE UNIT TO OVERRRIDE.
--- NOTE | 2020-09-17 06:24 | NUR ---
SENIOR ACCOUNTANT ANALYST NOTE RN BRITTNY CALLED AND INFORMED ME THAT PHARMACY IS HERE AND THEY WILL MIX MEDICATION. THEY JUST NEED TO KNOW WHICH PATIENT. CALLED PHARMACY TO INFORM THEM WHICH PATIENT NEEDS LEVOPHED DRIP. PHARMACY STATES WILL MIX NOW. AWAITING MEDICATION ARRIVAL.
[2020-09-17] MEDS: NOREPINEPHRINE 8 MG in IV NS 0.9% 242 ML IV PRN ×2 (06:41→20:55)
[2020-09-17 07:04] LABS: BASOPHILS % (AUTO) 0.1 % (0.0-2.0); EOSINOPHILS % (AUTO) 0.3 % (0.0-6.0); HEMATOCRIT 27 % (33-45); HEMOGLOBIN 8.5 g/dL (11.5-14.8); LYMPHOCYTES # (AUTO) 1.1 /CMM (0.8-4.8); LYMPHOCYTES % (AUTO) 5.4 % (20.0-44.0); MEAN CORPUSCULAR HGB CONC 32 g/dl (31.0-36.0); MEAN CORPUSCULAR VOLUME 96 fL (82-100); MONOCYTES # (AUTO) 0.6 /CMM (0.1-1.30); MONOCYTES % (AUTO) 2.9 % (2.0-12.0); NEUTROPHILS # (AUTO) 18.8 /CMM (1.8-8.9); NEUTROPHILS % (AUTO) 91.3 % (43.0-81.0); PLATELET COUNT (AUTO) 116 /CMM (150-450); RED BLOOD CELL COUNT(AUTO) 2.78 MIL/uL (4.0-5.2); WHITE BLOOD COUNT (AUTO) 20.6 K/uL (4.3-11.0)
--- NOTE | 2020-09-17 07:30 | NUR ---
ENGINE HOSTLER CLOSING NOTE PATIENT RESTING IN BED. OBTUNDED, ON MECHANICAL VENT: SAME SETTINGS. PATIENT O2 SAT IS GRADUALLY GOING LOWER, DROPS DOWN TO 88% BUT BRING SELF BACK UP. NO S/S PAIN NOTED.EXTERNAL TELE MONITOR READ UNCONTROLLED AFIB HR STILL RANGING FROM 70S- 120S. PATIENT BP IS CONTINUING TO GO DOWN, MD MADE AWARE AND LEVOPHED STARTED. IV ACCESS MAINTAINED IN MIRZA MIDLINE RUNNING LEVOPHED PER PROTOCOL. THORPE CATHETER IS MAINTAINED. RECTAL TUBE IS MAINTAINED, INFORMED ONCOMING SHIFT TO COLLECT CDIFF, UNABLE TO COLLECT D/T PATIENT NEEDS TO BE 24 HOURS OFF STOOL SOFTENERS/LAXATIVES. GTUBE IS MAINTAINED, RUNNING FEEDING TWO MALIK HS@20ML/HR PER LEE ANN HOOPER ORDER. BED REMAINS LOW AND LOCKED. HOB ELEVATED IN SEMI FOWLERS, SIDE RIALS UP X3, CALL LIGHT WITHIN REACH. PN SPECIALTY AIR MATTRESS. PHOTOS TAKEN PER PROTOCOL. ALSO INFORMED DAY RN THAT WHEN I WAS PERFORMING WOUND CARE THE PATIENT SACRAL WOUND WAS SEVERELY BLEEDING. WILL ENDORSE TO ONCOMING SHIFT.
--- NOTE | 2020-09-17 07:30 | NUR ---
RN TELE1 PATIENT IN BED, NO S/S OF DISTRESS, SHILEY #8, AC 16, TV 350, FIO2 50%, 5 PEEP, OBTUNDED, TELE IN PLACE, A FIB, GENERALIZED EDEMA, RECTAL TUBE IN PLACE, FALL RISK BED ALARM ON, MIRZA MIDLINE, LEVOPHED RUNNING AT 0.1 MC/KG/MIN, BP 95/44, CHECK 15 MIN BP CHECKS, BED IN LOWEST LOCKED POSITION, CALL LIGHT WITHIN REACH, WILL CONTINUE TO MONITOR.
[2020-09-17 08:10] LABS: CALCIUM, SERUM 10.9 mg/dL (8.5-10.1); CARBON DIOXIDE 22 mmol/L (21-32); CHLORIDE 107 mmol/L (98-107); GLUCOSE 112 mg/dL (74-106); MAGNESIUM 3.3 mg/dL (1.8-2.4); PHOSPHORUS 4.7 mg/dL (2.5-4.9); POTASSIUM 3.9 mmol/L (3.5-5.1); SODIUM SERUM 140 mmol/L (136-145)
--- NOTE | 2020-09-17 08:30 | NUR ---
ROUTE DRIVER OVERFLOW NOTIFIED RAJIV THE [facility] PILOT OF PATIENT RESIDUAL OF 230, ORDERED TO HOLD FEEDING AND GIVE MEDICATION.
[2020-09-17 08:46] LABS: CREATININE 1.9 mg/dL (0.6-1.3); UREA NITROGEN, BLOOD 110 mg/dL (7-18)
[2020-09-17] MEDS: APIXABAN 5 MG TABLET GT SCH ×2 (09:00→21:30)
[2020-09-17] MEDS: PANTOPRAZOLE 40 MG/PACK PACK GT SCH (09:17)
[2020-09-17] MEDS: GABAPENTIN 100 MG CAPSULE GT SCH ×3 (09:18→17:05)
[2020-09-17] MEDS: THIAMINE HCL 100 MG TABLET GT SCH (09:18)
[2020-09-17] MEDS: ZINC SULFATE 220 MG CAPSULE GT SCH (09:18)
[2020-09-17] MEDS: VITAMIN B COMP W-C 1 TAB TABLET GT SCH (09:18)
[2020-09-17] MEDS: FOLIC ACID 1 MG TABLET GT SCH (09:18)
[2020-09-17] MEDS: ASCORBIC ACID 500 MG TABLET GT SCH (09:18)
[2020-09-17] MEDS: LACTULOSE 10 G/15 ML UDC (PYXIS) NG SCH ×2 (09:18→17:06)
[2020-09-17] MEDS: LEVETIRACETAM SOL (5 ML) 100 MG/ML UDC GT SCH ×2 (09:18→20:59)
[2020-09-17] MEDS: MAGNESIUM OXIDE 400 MG TABLET GT SCH ×2 (09:18→17:06)
[2020-09-17] MEDS: MULTIVIT W/MINERALS 1 TAB TABLET GT SCH (09:21)
[2020-09-17] MEDS: AMIODARONE HCL 200 MG TABLET PO SCH ×3 (09:21→17:30)
[2020-09-17] MEDS: MICAFUNGIN SODIUM 100 MG in IV NS 0.9% 100 ML IV SCH (09:22)
[2020-09-17] MEDS: DICYCLOMINE HCL 10 MG/5 ML UDC GT SCH ×3 (09:23→17:05)
[2020-09-17] MEDS: TIMOLOL 0.25% SOL OPHTH 10 ML BOTTLE EACHEYE SCH ×2 (09:23→17:06)
[2020-09-17] MEDS: DAKINS QUARTER STRENGTH (0.125%) 480 ML BOTTLE TOP SCH (09:24)
[2020-09-17] MEDS: PROSOURCE / PROSTAT (PYXIS) 30 ML UDC GT SCH ×3 (09:24→17:05)
[2020-09-17 09:55] LABS: BAND % (MANUAL) 3 % (0.0-5.0); EOSINOPHILS % (MANUAL) 3 % (0-4); LYMPHOCYTES % (MANUAL) 2 % (16-48); MONOCYTES % (MANUAL) 3 % (0-11.0); MYELOCYTES % 3 % (0-0); NEUTROPHILS % (MANUAL) 86 (42-76)
[2020-09-17] MEDS: IV NS 0.9% 1,000 ML IV SCH ×2 (10:37→13:23)
[2020-09-17] MEDS: HYDROCORTISONE SOD SUCCINATE 100 MG/2 ML VIAL IV SCH ×2 (10:39→17:06)
[2020-09-17] MEDS: DIGOXIN 0.125 MG TABLET GT SCH (13:17)
--- NOTE | 2020-09-17 14:35 | NUR ---
MANGANESE WHEELER OVERFLOW SPOKE WITH RAJIV CHOWDARY, EXPLAINED PATIENT STATUS UPDATE, NOTIFIED OF GI RESIDUAL OF 380ML, ORDERED TO CONTINUE HOLDING FEEDING AND TO CONTACT THE GI DOCTOR FOLLOWING THE PATIENT, SHE SAID SHE WOULD ORDER PROTONIX IV AND A TYPE AND SCREEN. WILL FOLLOW UP ON ORDERS.
[2020-09-17] MEDS: CEFEPIME 2 GM in IV D5W 100 ML IV SCH (17:05)
--- NOTE | 2020-09-17 19:30 | NUR ---
RN TELE1 PATIENT IN BED, NO S/S OF DISTRESS, SHILEY #8, AC 16, TV 350, FIO2 50%, 5 PEEP, OBTUNDED, TELE IN PLACE, A FIB, GENERALIZED EDEMA, HELD TUBE FEEDING, RECTAL TUBE IN PLACE, FALL RISK BED ALARM ON, MIRZA MIDLINE, LEVOPHED RUNNING AT 0.08 MC/KG/MIN, SYSTOLIC BP >90, CHECK 15 MIN BP CHECKS, BED IN LOWEST LOCKED POSITION, CALL LIGHT WITHIN REACH, WILL CONTINUE TO MONITOR.
--- NOTE | 2020-09-17 20:00 | NUR ---
RN NOTES RECEIVED PT IN BED ON TRACH/VENT. AC 16 TV 380 FIO2 50 PEEP 5. NO RESP DISTRESS NOTED. O2 SAT AT 91 %. WITH EDEMA ON BUE AND BILATERAL FOOT. PT ON TELE MONITOR WITH UNCONTROLLED AFIB PTS BASELINE. ON LEVOPHED 0.08MCG/KG/MIN. AND NS 100ML/HR. INFUSING WELL. NO SIGNS OF INFILTRATION. GT IN PLACE WITH >300 GASTRIC RESIDUALS, GT FEEDING ON HOLD SINCE AM.KEPT HOB ELEVATED. THORPE CATH AND RECTAL TUBE IN PLACE. ALL SAFETY MEASURES IMPLEMENTED PER PROTOCOL. BED LOCKED IN LOWEST POSITION, SIDE RAILS UP. CALL LIGHT WITHIN REACH.
[2020-09-17] MEDS: PANTOPRAZOLE 40 MG VIAL IV SCH (20:59)
--- NOTE | 2020-09-17 21:30 | NUR ---
RN NOTE ELIQUIS HELD DUE TO ACTIVE BLEEDING FROM SACRAL WOUNDS.
[2020-09-17] MEDS: LATANOPROST EYE DROP 0.005% 2.5 ML BOTTLE EACHEYE SCH (23:16)
[2020-09-18] VITALS (25 sets, daily range): BP systolic 84–126; BP diastolic 36–67
[2020-09-18] MEDS: HYDROCORTISONE SOD SUCCINATE 100 MG/2 ML VIAL IV SCH ×3 (01:44→17:10)
--- NOTE | 2020-09-18 02:00 | NUR ---
RN NOTES PT TOLERATING VENT SETTINGS, NO RESP DISTRESS NOTES. STILL NOTED WITH INCREASED GT RESIDUALS. FEEDING STILL ON HOLD.
[2020-09-18] MEDS: IV NS 0.9% 1,000 ML IV PRN ×2 (06:03→21:34)
[2020-09-18] MEDS: METRONIDAZOLE 500 MG TABLET PO SCH ×3 (06:30→20:10)
[2020-09-18 06:44] LABS: BASOPHILS % (AUTO) 0.1 % (0.0-2.0); HEMATOCRIT 30 % (33-45); HEMOGLOBIN 9.4 g/dL (11.5-14.8); LYMPHOCYTES # (AUTO) 1.1 /CMM (0.8-4.8); MEAN CORPUSCULAR HGB CONC 32 g/dl (31.0-36.0); MEAN CORPUSCULAR VOLUME 97 fL (82-100); MONOCYTES # (AUTO) 0.6 /CMM (0.1-1.30); MONOCYTES % (AUTO) 2.3 % (2.0-12.0); NEUTROPHILS # (AUTO) 25.3 /CMM (1.8-8.9); NEUTROPHILS % (AUTO) 93.6 % (43.0-81.0); PLATELET COUNT (AUTO) 165 /CMM (150-450); RED BLOOD CELL COUNT(AUTO) 3.09 MIL/uL (4.0-5.2)
--- NOTE | 2020-09-18 07:00 | NUR ---
RN NOTES PT STILL NOTED WITH GT RESIDUALS >500ML, WITH FEEDING ON HOLD. PT WITH ONLY 30 CC URINE OUTPUT THE ENTIRE SHIFT. AD COMPOSITOR SANDIE MADE AWARE. AD COMPOSITOR ORDERED TO START REGLAN 5 MG GT TID. ORDER NOTED AND CARRIED OUT.
--- NOTE | 2020-09-18 07:15 | NUR ---
RN NOTE PT REMAINS IN BED. TOLERATING VENT SETTINGS. NOT IN ANY ACUTE DISTRESS. O2 SAT AT 94 %. ON LEVOPHED 0.08MCG/KG/MIN. BP STABLE. CONTINUE ON NS AT 100ML/HR. INFUSING WELL. NO SIGNS OF INFILTRATION. WITH MIRZA MIDLINE PATENT AND INTACT. PT WITH ONLY 30 ML URINE OUTPUT. KEPT HOB ELEVATED. WOUND TREATMENTS DONE. NO SIGNS OF INFECTION NOTED. WILL ENDORSE TO NEXT SHIFT NURSE. BED LOCKED IN LOWEST POSITION, BED ALARM ON. CALL LIGHT WITHIN REACH.
[2020-09-18 07:26] LABS: CREATINE KINASE, TOTAL 30 U/L (26-192)
[2020-09-18 07:30] LABS: ALANINE AMINOTRANSFERASE 37 U/L (12-78); ALBUMIN 1.6 g/dL (3.4-5.0); ALKALINE PHOSPHATASE 292 U/L (46-116); ASPARTATE AMINOTRANSFERASE 38 U/L (15-37); BILIRUBIN,TOTAL 1.3 mg/dL (0.2-1.0); CALCIUM, SERUM 10.8 mg/dL (8.5-10.1); CARBON DIOXIDE 20 mmol/L (21-32); CHLORIDE 106 mmol/L (98-107); CREATININE 2.2 mg/dL (0.6-1.3); GLUCOSE 137 mg/dL (74-106); MAGNESIUM 3.6 mg/dL (1.8-2.4); PHOSPHORUS 5.4 mg/dL (2.5-4.9); POTASSIUM 3.9 mmol/L (3.5-5.1); SODIUM SERUM 137 mmol/L (136-145); TOTAL PROTEIN, SERUM 5.7 g/dL (6.4-8.2)
[2020-09-18 07:42] LABS: UREA NITROGEN, BLOOD 119 mg/dL (7-18)
--- NOTE | 2020-09-18 08:00 | NUR ---
RN NOTE PT in OBTINDED TOLERATING VENT SETTINGS. NOT IN ANY ACUTE DISTRESS. O2 SAT AT 94 %. ON LEVOPHED 0.08MCG/KG/MIN. BP STABLE. CONTINUE ON NS AT 100ML/HR. INFUSING WELL. NO SIGNS OF INFILTRATION. WITH MIRZA MIDLINE PATENT AND INTACT. PT WITH . KEPT HOB ELEVATED. . BED LOCKED IN LOWEST POSITION, BED ALARM ON. CALL LIGHT WITHIN REACH.VANCO LEVEL 21 HOLD VANCOMYCIN,PHARMACY NOTIFIED
[2020-09-18] MEDS: MICAFUNGIN SODIUM 100 MG in IV NS 0.9% 100 ML IV SCH (08:13)
[2020-09-18] MEDS: LACTULOSE 10 G/15 ML UDC (PYXIS) NG SCH ×2 (08:14→16:29)
[2020-09-18] MEDS: GABAPENTIN 100 MG CAPSULE GT SCH ×3 (08:14→16:29)
[2020-09-18] MEDS: AMIODARONE HCL 200 MG TABLET PO SCH ×3 (08:14→16:31)
[2020-09-18] MEDS: LEVETIRACETAM SOL (5 ML) 100 MG/ML UDC GT SCH ×2 (08:14→20:10)
[2020-09-18] MEDS: METOCLOPRAMIDE HCL 10 MG TABLET GT SCH ×4 (08:14→16:29)
[2020-09-18] MEDS: PANTOPRAZOLE 40 MG VIAL IV SCH ×2 (08:14→20:10)
[2020-09-18] MEDS: VITAMIN B COMP W-C 1 TAB TABLET GT SCH (08:15)
[2020-09-18] MEDS: MAGNESIUM OXIDE 400 MG TABLET GT SCH ×2 (08:15→16:29)
[2020-09-18] MEDS: THIAMINE HCL 100 MG TABLET GT SCH (08:16)
[2020-09-18] MEDS: MULTIVIT W/MINERALS 1 TAB TABLET GT SCH (08:16)
[2020-09-18] MEDS: ZINC SULFATE 220 MG CAPSULE GT SCH (08:16)
[2020-09-18] MEDS: ASCORBIC ACID 500 MG TABLET GT SCH (08:16)
[2020-09-18] MEDS: PROSOURCE / PROSTAT (PYXIS) 30 ML UDC GT SCH ×3 (08:16→16:31)
[2020-09-18] MEDS: FOLIC ACID 1 MG TABLET GT SCH (08:16)
[2020-09-18] MEDS: APIXABAN 5 MG TABLET GT SCH ×2 (08:19→20:11)
[2020-09-18] MEDS: TIMOLOL 0.25% SOL OPHTH 10 ML BOTTLE EACHEYE SCH ×2 (08:34→16:15)
[2020-09-18] MEDS: DICYCLOMINE HCL 10 MG/5 ML UDC GT SCH ×3 (08:35→16:30)
[2020-09-18] MEDS ORDERED: VANCOMYCIN 1.25 GM in IV D5W 250 ML IV SCH (09:00)
--- NOTE | 2020-09-18 09:00 | NUR ---
ICU OVER FLOW RN NOTE F\C IS LEAKING NEW ONE PLACED, KEEP CLEAN DRY
[2020-09-18 11:29] LABS: BILIRUBIN,URINE NEGATIVE (NEGATIVE); COLOR,URINE YELLOW (YELLOW); LEUKOCYTE ESTERASE ,URINE MODERATE (NEGATIVE); NITRITE, URINE NEGATIVE (NEGATIVE); PROTEIN,URINE 30 mg/dl (NEGATIVE); UGLUCOSE NEGATIVE (NEGATIVE); UROBILINOGEN,URINE 0.2 EU/dL (0.2)
[2020-09-18 11:33] LABS: BACTERIA,URINE Few /HPF (None Seen); SQUAMOUS EPITHELIAL CELL,UR Moderate /HPF (None Seen)
--- NOTE | 2020-09-18 11:38 | NUR ---
ENAMEL FINISHER NOTE DR JACKSON AT BEDSIDE UPDATED PATIENT CONDITION KEEP MAP ABOVE 65,UA COLLECTED ORDERED Addendum: 09/18/20 at 1843 by NIKKO HERNANDEZ RN [id number] DR JACKSON THAT PATIENT HAS HIGH RESIDUAL 300L ,ON HOLD G TUBE FEEDING
[2020-09-18] MEDS: DIGOXIN 0.125 MG TABLET GT SCH (12:20)
[2020-09-18 12:31] LABS: CREATININE, URINE 74.9 MG/DL (30.0-125.0); URINE TOTAL PROTEIN 204.3 mg/dL (0-11.9)
--- NOTE | 2020-09-18 13:43 | NUR ---
CHIEF DEPUTY SHERIFF NOTE CONT ON LEVOPHED DRIP ORDERED
[2020-09-18] MEDS: NOREPINEPHRINE 8 MG in IV NS 0.9% 242 ML IV PRN (16:14)
[2020-09-18] MEDS: CEFEPIME 2 GM in IV D5W 100 ML IV SCH (17:09)
[2020-09-18 17:42] LABS: EOSINOPHIL,URINE None Seen
--- NOTE | 2020-09-18 18:38 | NUR ---
ICU OVER FLOW RN NOTE ALL NEEDS ATTENDED, WITH TRACH TO VENT SETTING ORDERED, WITH LEVOPHED DRIP ORDERED, BOTH UPPER ARMS WITH EDEMA, KEEP ELEVATED ORDERED US DONE ORDERED, WITH VERY SMALL URINE OUT PUT DR JACKSON NOTIFIED
--- NOTE | 2020-09-18 18:43 | NUR ---
ICU OVERFLOW STILL HIGH RESIDUAL 250 ML , HOLD G TUBE FEEDING ,WILL CONT TO MONITOR
--- NOTE | 2020-09-18 19:10 | NUR ---
RECEIVED PT OBTUNDED ON TRACH VENT SETTING PER MD SPO2 92% NO SIGN AND SYMPTOMS OF DISTRESS, HAVE GTUBE CLAMPED WITH RESIDUAL OF 200 CC, PER AM SHIFT SHE DONT START THE FEEDING ALSO DUE TO HIGH RESIDUAL MD IS AWARE. HAVE SIMIN MIDLINE IWTH ONGOIGN LEVOPHED @ 0.02 MCG/KG/MIN AND NS @ 100ML/HR INFUSING WELL HAVE THORPE AND RECTAL TUBE ON PLACE, BED ON LOWEST POSITION AND LOCKED SIDE RAILS UP WILL CONT TO MONITOR
[2020-09-18] MEDS: LATANOPROST EYE DROP 0.005% 2.5 ML BOTTLE EACHEYE SCH (21:44)
[2020-09-19] VITALS (27 sets, daily range): BP systolic 81–155; BP diastolic 31–79
--- NOTE | 2020-09-19 00:02 | NUR ---
PT ON BED STILL OBTUNDED SPO2 93% ON TREACH VENT/ STILL ON LEVOPED @ 0.04 MCG/KG/MIN WILL CONT TO MONITOR
[2020-09-19] MEDS: HYDROCORTISONE SOD SUCCINATE 100 MG/2 ML VIAL IV SCH ×3 (01:15→18:27)
--- NOTE | 2020-09-19 01:55 | NUR ---
AFTER CLEANING THE PT, SPO2 DROPS TO 88-89% RT MADE AWARE INCREASE FIO2 TO 75% SPO2 GOING UP TO 93% WILL CONT TO MONITOR
--- NOTE | 2020-09-19 03:18 | NUR ---
PT STILLON TRACH VENT FIO2 75% WITH SPO2 95% NO SIGN OF DISTRESS NOTED , STILL HAVE GASTRIC RESIDUAL OF 180ML WILL CONT TO MONITOR
[2020-09-19] MEDS: METRONIDAZOLE 500 MG TABLET PO SCH ×3 (04:55→20:15)
[2020-09-19] MEDS: IV NS 0.9% 1,000 ML IV PRN (06:56)
[2020-09-19 07:00] LABS: BASOPHILS # (AUTO) 0.1 /CMM (0.0-0.2); BASOPHILS % (AUTO) 0.2 % (0.0-2.0); HEMATOCRIT 31 % (33-45); HEMOGLOBIN 9.9 g/dL (11.5-14.8); LYMPHOCYTES # (AUTO) 1.3 /CMM (0.8-4.8); MEAN CORPUSCULAR HGB CONC 32 g/dl (31.0-36.0); MEAN CORPUSCULAR VOLUME 96 fL (82-100); MONOCYTES # (AUTO) 1.3 /CMM (0.1-1.30); MONOCYTES % (AUTO) 3.8 % (2.0-12.0); NEUTROPHILS # (AUTO) 30.4 /CMM (1.8-8.9); PLATELET COUNT (AUTO) 190 /CMM (150-450); RED BLOOD CELL COUNT(AUTO) 3.25 MIL/uL (4.0-5.2)
[2020-09-19 07:06] LABS: ALANINE AMINOTRANSFERASE 31 U/L (12-78); ALBUMIN 1.6 g/dL (3.4-5.0); ALKALINE PHOSPHATASE 285 U/L (46-116); ASPARTATE AMINOTRANSFERASE 42 U/L (15-37); BILIRUBIN,TOTAL 1.3 mg/dL (0.2-1.0); CALCIUM, SERUM 10.8 mg/dL (8.5-10.1); CARBON DIOXIDE 18 mmol/L (21-32); CHLORIDE 106 mmol/L (98-107); CREATININE 2.4 mg/dL (0.6-1.3); GLUCOSE 99 mg/dL (74-106); MAGNESIUM 3.5 mg/dL (1.8-2.4); PHOSPHORUS 6.2 mg/dL (2.5-4.9); POTASSIUM 4.3 mmol/L (3.5-5.1); SODIUM SERUM 137 mmol/L (136-145); TOTAL PROTEIN, SERUM 5.7 g/dL (6.4-8.2)
--- NOTE | 2020-09-19 07:10 | NUR ---
ICU OVERFLOW RN OPENING NOTES RECEIVED PT OBTUNDED ON TRACH VENT SETTING PER MD SPO2 @94% NO S/S OF ACUTE RESPIRATORY DISTRESS. GTUBE CLAMPED WITH RESIDUAL OF 180 CC. SIMIN MIDLINE WITH ONGOING LEVOPHED @ 0.1 MCG/KG/MIN AND NS @ 100ML/HR INFUSING WELL. THORPE AND RECTAL TUBE IN PLACE. SAFETY MEASURES IMPLEMENTED. CALL LIGHT WITHIN REACH. BED LOCKED AND IN LOWEST POSITION WITH SIDE RAILS UP X2. WILL CONTINUE TO MONITOR
--- NOTE | 2020-09-19 07:20 | NUR ---
PT ON BED STILL OBTUNDED, STILL ON TRACH VENT SETTING PER MD FIO2 75% SPO2 94 % GTUBE FEEDING STILL HELD DUE TO LARGE RESIDUAL OF 180 ML, TELE MONITOR READS UNCONTROLLED AFIB HR 80-130, SAFETY MEASURE MAINTAINED BED ON LOWEST POSITION AND LOCKED SIDE RAILS UP X2 CALL LIGHT WITHIN REACH WILL ENDORSED TO AM SHIFT NURSE
[2020-09-19 07:26] LABS: WHITE BLOOD COUNT (AUTO) 33.1 K/uL (4.3-11.0)
[2020-09-19 07:30] LABS: UREA NITROGEN, BLOOD 132 mg/dL (7-18)
[2020-09-19] MEDS: MICAFUNGIN SODIUM 100 MG in IV NS 0.9% 100 ML IV SCH (08:59)
[2020-09-19] MEDS: PANTOPRAZOLE 40 MG VIAL IV SCH ×2 (08:59→20:15)
[2020-09-19] MEDS: DICYCLOMINE HCL 10 MG/5 ML UDC GT SCH ×3 (09:00→17:21)
[2020-09-19] MEDS: LACTULOSE 10 G/15 ML UDC (PYXIS) NG SCH ×2 (09:03→17:13)
[2020-09-19] MEDS: VITAMIN B COMP W-C 1 TAB TABLET GT SCH (09:04)
[2020-09-19] MEDS: THIAMINE HCL 100 MG TABLET GT SCH (09:04)
[2020-09-19] MEDS: ZINC SULFATE 220 MG CAPSULE GT SCH (09:04)
[2020-09-19] MEDS: MAGNESIUM OXIDE 400 MG TABLET GT SCH ×2 (09:04→17:13)
[2020-09-19] MEDS: LEVETIRACETAM SOL (5 ML) 100 MG/ML UDC GT SCH ×2 (09:04→20:15)
[2020-09-19] MEDS: MULTIVIT W/MINERALS 1 TAB TABLET GT SCH (09:04)
[2020-09-19] MEDS: FOLIC ACID 1 MG TABLET GT SCH (09:04)
[2020-09-19] MEDS: ASCORBIC ACID 500 MG TABLET GT SCH (09:04)
[2020-09-19] MEDS: GABAPENTIN 100 MG CAPSULE GT SCH ×3 (09:06→17:13)
[2020-09-19] MEDS: AMIODARONE HCL 200 MG TABLET PO SCH ×4 (09:07→17:17)
[2020-09-19] MEDS: APIXABAN 5 MG TABLET GT SCH ×2 (09:08→21:00)
[2020-09-19] MEDS: METOCLOPRAMIDE HCL 10 MG TABLET GT SCH ×3 (09:08→17:14)
[2020-09-19] MEDS: PROSOURCE / PROSTAT (PYXIS) 30 ML UDC GT SCH ×3 (09:10→17:21)
[2020-09-19] MEDS: TIMOLOL 0.25% SOL OPHTH 10 ML BOTTLE EACHEYE SCH ×2 (09:10→17:21)
[2020-09-19] MEDS ORDERED: BUMETANIDE INJ 4 MG in IV D5W 24 ML IV ONE (10:00)
[2020-09-19] MEDS: NOREPINEPHRINE 8 MG in IV NS 0.9% 242 ML IV PRN ×2 (10:51→15:53)
[2020-09-19 11:59] LABS: BAND % (MANUAL) 4 % (0.0-5.0); LYMPHOCYTES % (MANUAL) 1 % (16-48); METAMYELOCYTES % 1 % (0-0); MONOCYTES % (MANUAL) 2 % (0-11.0); MYELOCYTES % 6 % (0-0); NEUTROPHILS % (MANUAL) 86 (42-76)
--- NOTE | 2020-09-19 12:15 | NUR ---
RN NOTES DR. JACKSON ORDERED TO KEEP MAP OF 65. LEVOPHED RUNNING @0.03. MAP MAINTAINED
[2020-09-19] MEDS: DIGOXIN 0.125 MG TABLET GT SCH (13:14)
[2020-09-19] MEDS ORDERED: VANCOMYCIN 1 GM in IV D5W 250 ML IV SCH (15:00)
[2020-09-19 15:16] LABS: C-REACTIVE PROTEIN 19.3 mg/dL (0.0-0.9)
--- NOTE | 2020-09-19 17:30 | NUR ---
RN NOTES MAP OF 60. LEVOPHED NOW RUNNING @0.05. MAP MAINTAINED
[2020-09-19] MEDS: CEFEPIME 2 GM in IV D5W 100 ML IV SCH (18:28)
--- NOTE | 2020-09-19 18:45 | NUR ---
ICU OVERFLOW RN CLOSING NOTES PT OBTUNDED ON TRACH VENT SETTING PER MD SPO2 @92% NO S/S OF ACUTE RESPIRATORY DISTRESS. GTUBE CLAMPED WITH RESIDUAL OF 150 CC. SIMIN MIDLINE WITH ONGOING LEVOPHED @ 0.05 MCG/KG/MIN. THORPE AND RECTAL TUBE IN PLACE. SAFETY MEASURES IMPLEMENTED. CALL LIGHT WITHIN REACH. BED LOCKED AND IN LOWEST POSITION WITH SIDE RAILS UP X2. WILL ENDORSE TO NIGHT NURSE FOR OWEN
--- NOTE | 2020-09-19 19:40 | NUR ---
ICU OVERFLOW RN OPENING NOTES RECEIVED PATIENT IN BED OBTUNDED ON MECHANICAL VENTILATOR TOLERATING CURRENT SETTING 02 @90% AT THIS TIME, NO S/S OF ACUTE RESPIRATORY DISTRESS, AFIB ON TELE MONITOR WITH HR 60S AT THIS TIME, G-TUBE CLAMPED WITH RESIDUAL OF 150 CC. ATT THIS TIME, SIMIN MIDLINE IN PLACE, LEVOPHED @ 0.05 MCG/KG/MIN, THORPE AND RECTAL TUBE IN PLACE, SAFETY MEASURES IMPLEMENTED, BED LOCKED AND IN LOWEST POSITION, SIDE RAILS UP X, WILL CONTINUE TO MONITOR CLOSELY.
[2020-09-19] MEDS: LATANOPROST EYE DROP 0.005% 2.5 ML BOTTLE EACHEYE SCH (22:19)
[2020-09-20] VITALS (24 sets, daily range): BP systolic 84–120; BP diastolic 25–59
[2020-09-20] MEDS: HYDROCORTISONE SOD SUCCINATE 100 MG/2 ML VIAL IV SCH ×3 (02:23→18:07)
[2020-09-20] MEDS: METRONIDAZOLE 500 MG TABLET PO SCH ×3 (05:45→20:13)
[2020-09-20 07:28] LABS: BASOPHILS # (AUTO) 0.4 /CMM (0.0-0.2); BASOPHILS % (AUTO) 0.9 % (0.0-2.0); HEMATOCRIT 30 % (33-45); HEMOGLOBIN 8.9 g/dL (11.5-14.8); LYMPHOCYTES # (AUTO) 2.5 /CMM (0.8-4.8); LYMPHOCYTES % (AUTO) 5.2 % (20.0-44.0); MEAN CORPUSCULAR HGB CONC 30 g/dl (31.0-36.0); MEAN CORPUSCULAR VOLUME 101 fL (82-100); MONOCYTES # (AUTO) 2.2 /CMM (0.1-1.30); MONOCYTES % (AUTO) 4.4 % (2.0-12.0); NEUTROPHILS # (AUTO) 43.8 /CMM (1.8-8.9); NEUTROPHILS % (AUTO) 89.5 % (43.0-81.0); PLATELET COUNT (AUTO) 194 /CMM (150-450); RED BLOOD CELL COUNT(AUTO) 2.99 MIL/uL (4.0-5.2)
--- NOTE | 2020-09-20 07:30 | NUR ---
RN OPENING NOTES PATIENT PRESENT IN BED, OBTUNDED, ON [facility] VENTILATOR, TOLERATING SETTINGS WELL, SPO2 IS 91% AT THIS TIME, RESPIRATIONS EVEN AND UNLABORED, NSR ON TELE-MONITOR, THORPE CATH IN PLACE DRAINING SMALL AMOUNT OF YELLOW URINE BY GRAVITY. FLEXI SEAL NOTED IN PLACE, DRAINING BROWN LIQUID STOOL, INTACT AND PATENT, IV MIDLINE LINE NOTED ON L UPPER ARM, INTACT AND PATENT, G-TUBE NOTED, INTACT AND CLUMPED, NPO EXCEPT MEDS STATUS NOTED, SAFETY MEASURES IN PLACE, HOB ELEVATED, BED IS LOCKED IN LOWEST POSITION, ICU MONITORS WORKING, CONT TO MONITOR CLOSELY
[2020-09-20 07:43] LABS: WHITE BLOOD COUNT (AUTO) 48.9 K/uL (4.3-11.0)
[2020-09-20 07:48] LABS: CALCIUM, SERUM 11.2 mg/dL (8.5-10.1); CARBON DIOXIDE 14 mmol/L (21-32); CHLORIDE 107 mmol/L (98-107); CREATININE 3.1 mg/dL (0.6-1.3); GLUCOSE 79 mg/dL (74-106); POTASSIUM 5.3 mmol/L (3.5-5.1); SODIUM SERUM 137 mmol/L (136-145)
--- NOTE | 2020-09-20 07:50 | NUR ---
ICU OVERFLOW RN CLOSING NOTES PATIENT IN BED OBTUNDED ON MECHANICAL VENTILATOR TOLERATING CURRENT SETTING TOLERATING SETTINGS WELL, G-TUBE CLAMPED WITH RESIDUAL OF 140 CC., STILL AT THIS TIME, SIMIN MIDLINE IN PLACE, LEVOPHED @ 0.05 MCG/KG/MIN, THROUGHOUT THE NIGHT, WITH SBP IN LOW 90S, THORPE AND RECTAL TUBE IN PLACE, SAFETY MEASURES IMPLEMENTED, NO SIGNIFICANT CHANGE IN CONDITION DURING THE NIGHT, BED LOCKED AND IN LOWEST POSITION, SIDE RAILS UP 2X, ENDORSED TO ISSAC RN FOR CONTINUATION OF CARE.
[2020-09-20 07:53] LABS: UREA NITROGEN, BLOOD 143 mg/dL (7-18)
[2020-09-20 07:54] LABS: MAGNESIUM 4.3 mg/dL (1.8-2.4)
[2020-09-20 08:07] LABS: CREATINE KINASE, TOTAL 51 U/L (26-192); FERRITIN 2222 ng/mL (8-388)
[2020-09-20] MEDS: MICAFUNGIN SODIUM 100 MG in IV NS 0.9% 100 ML IV SCH (08:38)
[2020-09-20] MEDS: DICYCLOMINE HCL 10 MG/5 ML UDC GT SCH ×3 (08:39→17:57)
[2020-09-20] MEDS: MAGNESIUM OXIDE 400 MG TABLET GT SCH ×3 (08:39→17:56)
[2020-09-20] MEDS: LACTULOSE 10 G/15 ML UDC (PYXIS) NG SCH ×2 (08:39→17:56)
[2020-09-20] MEDS: VITAMIN B COMP W-C 1 TAB TABLET GT SCH (08:40)
[2020-09-20] MEDS: LEVETIRACETAM SOL (5 ML) 100 MG/ML UDC GT SCH ×2 (08:40→20:15)
[2020-09-20] MEDS: ZINC SULFATE 220 MG CAPSULE GT SCH (08:40)
[2020-09-20] MEDS: GABAPENTIN 100 MG CAPSULE GT SCH ×3 (08:40→17:56)
[2020-09-20] MEDS: MULTIVIT W/MINERALS 1 TAB TABLET GT SCH (08:41)
[2020-09-20] MEDS: ASCORBIC ACID 500 MG TABLET GT SCH (08:41)
[2020-09-20] MEDS: FOLIC ACID 1 MG TABLET GT SCH (08:41)
[2020-09-20] MEDS: METOCLOPRAMIDE HCL 10 MG TABLET GT SCH ×4 (08:41→17:59)
[2020-09-20] MEDS: THIAMINE HCL 100 MG TABLET GT SCH (08:41)
[2020-09-20] MEDS: PANTOPRAZOLE 40 MG VIAL IV SCH ×2 (08:42→20:15)
[2020-09-20] MEDS: AMIODARONE HCL 200 MG TABLET PO SCH ×4 (08:46→17:00)
[2020-09-20] MEDS: APIXABAN 5 MG TABLET GT SCH ×2 (09:00→20:14)
--- NOTE | 2020-09-20 09:00 | NUR ---
During assessment excessive amount of residual 65 cc noted, black color
[2020-09-20] MEDS: PROSOURCE / PROSTAT (PYXIS) 30 ML UDC GT SCH ×3 (09:02→18:02)
[2020-09-20] MEDS: TIMOLOL 0.25% SOL OPHTH 10 ML BOTTLE EACHEYE SCH ×2 (09:02→17:57)
--- NOTE | 2020-09-20 09:15 | NUR ---
HR drooped to 39. will hold amiodarone and other crushed meds will hold Eliquis due patient is weeping with bloody secretions, gastric residual is egestive and black, and trach suction is bloody
[2020-09-20] MEDS ORDERED: ATROPINE SULFATE INJ 1 MG/ML VIAL IV ONE (10:00)
[2020-09-20] MEDS ORDERED: ATROPINE SULFATE INJ 0.4 MG/ML VIAL IV ONE (10:00)
--- NOTE | 2020-09-20 10:40 | NUR ---
Atropine administrated HR back to 89, BP is 119/49, continue to monitor
[2020-09-20] MEDS: NOREPINEPHRINE 8 MG in IV NS 0.9% 242 ML IV PRN ×3 (11:17→22:45)
[2020-09-20 11:18] LABS: ABG OXYGEN SATURATION 91.1 % (92.0-98.5); ABG PCO2 85.1 mmHg (35.0-45.0); ABG PH 6.794 (7.350-7.450); ABG PO2 85.1 mmHg (75.0-100.0); AaDO2 469.4 mmHg; COHb 0.4 % (0.5-1.5); MetHb 0.6 % (0.0-1.5); O2Hb 90.2 % (94.0-97.0); SITE, ABG Left Radial; VENT MODE, BG AC 16 380 +10 90%
[2020-09-20 11:59] LABS: LYMPHOCYTES % (MANUAL) 4 % (16-48); MONOCYTES % (MANUAL) 6 % (0-11.0); NEUTROPHILS % (MANUAL) 90 (42-76)
[2020-09-20] MEDS ORDERED: Sodium Bicarbonate 100 MEQ in IV D5W 1,000 ML IV PRN ×2 (12:00→12:30)
[2020-09-20 12:51] LABS: BASOPHILS # (AUTO) 0.4 /CMM (0.0-0.2); BASOPHILS % (AUTO) 0.7 % (0.0-2.0); HEMATOCRIT 32 % (33-45); HEMOGLOBIN 9.2 g/dL (11.5-14.8); LYMPHOCYTES # (AUTO) 3.4 /CMM (0.8-4.8); LYMPHOCYTES % (AUTO) 5.7 % (20.0-44.0); MEAN CORPUSCULAR HGB CONC 29 g/dl (31.0-36.0); MEAN CORPUSCULAR VOLUME 101 fL (82-100); MONOCYTES # (AUTO) 2.4 /CMM (0.1-1.30); NEUTROPHILS # (AUTO) 53.1 /CMM (1.8-8.9); NEUTROPHILS % (AUTO) 89.6 % (43.0-81.0); PLATELET COUNT (AUTO) 213 /CMM (150-450); RED BLOOD CELL COUNT(AUTO) 3.14 MIL/uL (4.0-5.2)
[2020-09-20] MEDS: DIGOXIN 0.125 MG TABLET GT SCH (12:52)
--- NOTE | 2020-09-20 12:54 | NUR ---
Digoxin and amiodorone not administered. Atropine was given earlier this morning due to bradycardia 40's. Will continue to monitor HR and BP.
[2020-09-20 12:57] LABS: WHITE BLOOD COUNT (AUTO) 59.3 K/uL (4.3-11.0)
[2020-09-20 14:29] LABS: ALANINE AMINOTRANSFERASE 60 U/L (12-78); ALKALINE PHOSPHATASE 307 U/L (46-116); ASPARTATE AMINOTRANSFERASE 153 U/L (15-37); BILIRUBIN,TOTAL 1.9 mg/dL (0.2-1.0); CALCIUM, SERUM 10.7 mg/dL (8.5-10.1); CARBON DIOXIDE 16 mmol/L (21-32); CHLORIDE 106 mmol/L (98-107); CREATININE 3.3 mg/dL (0.6-1.3); POTASSIUM 5.5 mmol/L (3.5-5.1); SODIUM SERUM 137 mmol/L (136-145); TOTAL PROTEIN, SERUM 5.4 g/dL (6.4-8.2)
[2020-09-20 14:33] LABS: GLUCOSE 45 mg/dL (74-106)
[2020-09-20 14:34] LABS: ALBUMIN 1.4 g/dL (3.4-5.0); MAGNESIUM 4.1 mg/dL (1.8-2.4); PHOSPHORUS 8.7 mg/dL (2.5-4.9); UREA NITROGEN, BLOOD 141 mg/dL (7-18)
--- NOTE | 2020-09-20 14:45 | NUR ---
Patient has critical lab results, low blood sugar level of 45, will recheck with finger stick and notify
--- NOTE | 2020-09-20 14:50 | NUR ---
Finger stick sugar level is critical 17, MD aware will administer Dextrose 50%
[2020-09-20] MEDS ORDERED: DEXTROSE 50%-WATER 50 ML DISP.SYRIN IVP ONE (15:00)
[2020-09-20 15:11] LABS: ABG BASE EXCESS -23.5 mmol/L; ABG OXYGEN SATURATION 89.8 % (92.0-98.5); ABG PCO2 63.3 mmHg (35.0-45.0); ABG PH 6.813 (7.350-7.450); AaDO2 493.8 mmHg; COHb 0.1 % (0.5-1.5); MetHb 0.7 % (0.0-1.5); O2Hb 89.1 % (94.0-97.0); SITE, ABG Left Radial; VENT MODE, BG AC 30 450 +10 90%
--- NOTE | 2020-09-20 15:20 | NUR ---
Rechecked sugar, now is 86, cont to monitor
[2020-09-20] MEDS: CEFEPIME 2 GM in IV D5W 100 ML IV SCH (18:06)
--- NOTE | 2020-09-20 18:46 | NUR ---
RN CLOSING NOTES PATIENT REMAINS IN BED,TOLERATING VENT SETTINGS WELL, NO SOB, SPO2 IS 91-34%, TOLERATING IV PRESSORS WELL, BP MAINTAINED IN DESIRABLE RANGE ;CLEANED, REPOSITIONED, NEW DRESSINGS APPLIED, MEDICATIONS GIVEN, COMFORT NEEDS ATTENDED, SAFETY MEASURES IN PLACE, BED IS LOCKED IN LOWEST POSITION, HOB ELEVATED,WILL ENDORSE TO PM SHIFT RN FOR OWEN
[2020-09-20 21:17] LABS: ABG BASE EXCESS -25.2 mmol/L; ABG OXYGEN SATURATION 85.1 % (92.0-98.5); ABG PCO2 50.9 mmHg (35.0-45.0); ABG PH 6.818 (7.350-7.450); ABG PO2 69.2 mmHg (75.0-100.0); AaDO2 592.9 mmHg; COHb 0.3 % (0.5-1.5); MetHb 0.5 % (0.0-1.5); O2Hb 84.4 % (94.0-97.0); PEEP,BG 10 cm H2O; SITE, ABG Right Brachial
[2020-09-20] MEDS: LATANOPROST EYE DROP 0.005% 2.5 ML BOTTLE EACHEYE SCH (22:46)
[2020-09-21] VITALS: BP_SYST 117; BP_SYST 86; BP_DIAS 42; BP_DIAS 66
[2020-09-21] MEDS ORDERED: NOREPINEPHRINE 4 MG/4 ML AMPUL IV ONE (00:46)
[2020-09-21 01:00] VITALS: BP 83/32
[2020-09-21 01:46] VITALS: BP 85/42
[2020-09-21] MEDS: NOREPINEPHRINE 8 MG in IV NS 0.9% 242 ML IV PRN (01:46)
--- NOTE | 2020-09-21 01:51 | NUR ---
RN notes Received patient in bed with Heart rate 99bpm, O2sat 90-92%, BP 85/46. Remains afebrile with skin warm and dry to touch. On levo drip at 0.3mcg and increase slowly up to 1.00. No physical manifestation of pain or discomfort. At around 01:00, noted Heart rate asystole, and flactuates from 45 to 140bpm, with o2sat from 40 to 75%. Seen and evaluated by RT. Suction small amount of white thin secretion. Called MD and relayed patient's condition. No new order as of this time. Skin very pale in color. at 01:45, patient's breathing was agonal. Reposition for comfort. Head of bed elevated. Will continue to monitor.
--- NOTE | 2020-09-21 02:30 | NUR ---
RN notes Patient's vital signs were unstable. Heart rate goes up and down and went to asystole at 02:20. Unable to appreciate BP and O2sat. Eyes dilated, skin very pale in color. Patient was pronounced at 02:25 by RN Delores. Notified family, spoke with Vivian (sister), appreciative of the call. [facility]. Nursing Print Operator (Harper)/RT (Luther)/Admitting(Kyle) informed. Called [facility], spoke with Rose. Information given, patient is not a candidate. Post mortem care done. Body for pick-up.
--- NOTE | 2020-09-21 06:54 | NUR ---
RN/ICU-PRONOUNCEMENT OF :PT. CODE STATUS"DNR". ON ASSESSMENT,PT. UNRESPONSIVE TO ANY FORM OF STIMULI. PUPILS ARE FIXED AND DILATED. APNEIC, EKG ASYSTOLE X 2 LEADS. PERIPHERAL PULSES ARE ABSENT. NO SIGNS OF LIFE. PT. PRONOUNCED AT 0225 BY:RUBEN DUNN RN/BSN
== END 2020-09-21 04:18 | disposition expired | DRG 4 ==
LOC: ER 08:14 → ICU 14:50 → ICUOV 09-08 18:01 → ICU 09-10 10:40 → TELE-TD 09-12 11:21 → TELE1 09-14 12:38 → ICUOV 09-17 08:10
PROVIDERS: ADMIT Family Medicine
PROC: 5A1955Z Respiratory Ventilation, Greater than 96 Consecutive Hours (ICD-10-PCS; principal; 2020-08-15)
PROC: 0BH18EZ Insertion of Endotracheal Airway into Trachea, Via Natural or Artificial Opening Endoscopic (ICD-10-PCS; 2020-08-15)
PROC: XW033E5 Introduction of Remdesivir Anti-infective into Peripheral Vein, Percutaneous Approach, New Technology Group 5 (ICD-10-PCS; 2020-08-15)
PROC: XW13325 Transfusion of Convalescent Plasma (Nonautologous) into Peripheral Vein, Percutaneous Approach, New Technology Group 5 (ICD-10-PCS; 2020-08-16)
PROC: 05H533Z Insertion of Infusion Device into Right Subclavian Vein, Percutaneous Approach (ICD-10-PCS; 2020-08-16)
PROC: B546ZZA Ultrasonography of Right Subclavian Vein, Guidance (ICD-10-PCS; 2020-08-16)
PROC: 0B110F4 Bypass Trachea to Cutaneous with Tracheostomy Device, Open Approach (ICD-10-PCS; 2020-09-06)
PROC: 0DH63UZ Insertion of Feeding Device into Stomach, Percutaneous Approach (ICD-10-PCS; 2020-09-11)
PROC: 05H633Z Insertion of Infusion Device into Left Subclavian Vein, Percutaneous Approach (ICD-10-PCS; 2020-09-12)
PROC: B547ZZA Ultrasonography of Left Subclavian Vein, Guidance (ICD-10-PCS; 2020-09-12)
DX: A41.89 Other specified sepsis (principal); U07.1 COVID-19; J96.01 Acute respiratory failure with hypoxia; N17.0 Acute kidney failure with tubular necrosis; G93.41 Metabolic encephalopathy; J96.02 Acute respiratory failure with hypercapnia; J12.82 Pneumonia due to coronavirus disease 2019; R65.21 Severe sepsis with septic shock; J15.9 Unspecified bacterial pneumonia; J44.0 Chronic obstructive pulmonary disease with (acute) lower respiratory infection; D61.818 Other pancytopenia; E87.2 Acidosis; E46 Unspecified protein-calorie malnutrition; E27.40 Unspecified adrenocortical insufficiency; E87.0 Hyperosmolality and hypernatremia; B37.49 Other urogenital candidiasis; E66.01 Morbid (severe) obesity due to excess calories; K72.90 Hepatic failure, unspecified without coma; Z79.01 Long term (current) use of anticoagulants; E78.5 Hyperlipidemia, unspecified; E83.42 Hypomagnesemia; F03.90 Unspecified dementia, unspecified severity, without behavioral disturbance, psychotic disturbance, mood disturbance, and anxiety; I25.2 Old myocardial infarction; K29.70 Gastritis, unspecified, without bleeding; Z22.322 Carrier or suspected carrier of Methicillin resistant Staphylococcus aureus; Z88.0 Allergy status to penicillin; E83.52 Hypercalcemia; E86.1 Hypovolemia; H40.9 Unspecified glaucoma; R13.10 Dysphagia, unspecified; I10 Essential (primary) hypertension; I48.0 Paroxysmal atrial fibrillation; J44.9 Chronic obstructive pulmonary disease, unspecified; I73.9 Peripheral vascular disease, unspecified; Z68.30 Body mass index [BMI] 30.0-30.9, adult; K72.10 Chronic hepatic failure without coma; L98.8 Other specified disorders of the skin and subcutaneous tissue; L89.156 Pressure-induced deep tissue damage of sacral region; S41.112A Laceration without foreign body of left upper arm, initial encounter; S41.111A Laceration without foreign body of right upper arm, initial encounter; X58.XXXA Exposure to other specified factors, initial encounter; Y93.9 Activity, unspecified; Y92.129 Unspecified place in nursing home as the place of occurrence of the external cause; E87.5 Hyperkalemia; Z66 Do not resuscitate; A41.02 Sepsis due to Methicillin resistant Staphylococcus aureus
CPT/HCPCS: 31720; 36415; 36600; 43246; 71045-TC; 76770-TC; 80048-TC; 80053-TC; 80061-TC; 80076-TC; 80202-TC; 81001; 82140-TC; 82248-TC; 82306; 82533; 82550-TC; 82570-TC; 82652; 82728-TC; 82803-TC; 82962-TC; 83605-TC; 83615-TC; 83735-TC; 83880; 83970; 84100-TC; 84155-TC; 84300-TC; 84439-TC; 84443-TC; 84478-TC; 84484-TC; 85025-TC; 85378-TC; 85610-TC; 85730-TC; 86140-TC; 86850-TC; 87040-TC; 87070-TC; 87081-TC; 87086-TC; 87186-TC; 93307-TC; 94002-TC; 94003-TC; 94760-TC; 94762-TC; 94799-TC; 99082-TC; A4216; A4623; A6253; A6403; A7526; C1751; C9113; G0378; J0330; J0456; J0461; J0692; J0696; J1100; J1160; J1720; J1940; J1953; J2060; J2185; J2248; J2250; J2370; J2930; J3370; J3475; J3490; J7030; J7040; J7050; J7060; J7070; J8597; P9017-BL; P9047; U0003